=== PATIENT | male | born 1935 | race Caucasian/White ===

== ENCOUNTER 2018-03-06 18:45 | Inpatient (IN) | payer OTHER, MEDICARE ==
[2018-03-06] VITALS (7 sets, daily range): PULSE 73–100; O2SAT 94–100
[~2018-03-06] VITALS: Ht 188 cm; Wt 74.6 kg
[2018-03-06] MEDS ORDERED: MORPHINE SULFATE 4 MG/ML INJ ONE (18:50)
[2018-03-06] MEDS ORDERED: DIPHTH/TETANUS/ACEL PERTUSSIS (BOOSTER) 0.5 ML VIAL/PFS IM ONE (18:56)
[2018-03-06 19:09] LABS: AUTOMATED NEUTROPHIL # 4.4 TH/MM3 (1.8-7.7); BASOPHIL # 0.2 TH/MM3 (0-0.2); BASOPHIL % 3.1 % (0.0-2.0); EOSINOPHIL # 0.3 TH/MM3 (0-0.4); EOSINOPHIL % 3.3 % (0.0-4.0); HEMOGLOBIN 13.9 GM/DL (13.0-17.0); LYMPH % 28.8 % (9.0-44.0); LYMPHOCYTE # 2.2 TH/MM3 (1.0-4.8); MEAN CELL VOLUME 88.1 FL (80.0-100.0); MEAN CORPUSCULAR HEMOGLOBIN 29.2 PG (27.0-34.0); MEAN CORPUSCULAR HGB CONC 33.1 % (32.0-36.0); MEAN PLATELET VOLUME 8.5 FL (7.0-11.0); MONO % 6.9 % (0.0-8.0); MONOCYTE # 0.5 TH/MM3 (0-0.9); NEUT % 57.9 % (16.0-70.0); PLATELET COUNT 247 TH/MM3 (150-450); RED BLOOD COUNT 4.77 MIL/MM3 (4.50-5.90); RED CELL DISTRIBUTION WIDTH 14.1 % (11.6-17.2); WHITE BLOOD COUNT 7.6 TH/MM3 (4.0-11.0)
[2018-03-06 19:20] LABS: INTERNATIONAL NORMALIZED RATIO 1.1 RATIO; PROTHROMBIN TIME - PATIENT 11.2 SEC (9.8-11.6)
[2018-03-06] MEDS ORDERED: IOHEXOL 350 MG/ML 10 ML VIAL (for RAD DIAG) IVCONTRAST ONE (19:25)
--- NOTE | 2018-03-06 19:27 | PD ---
HPI Chief Complaint: Trauma (Alert) Time Seen by Provider: 19:03 Travel History International Travel<30 days: No Contact w/Intl Traveler<30days: No History of Present Illness HPI Patient is a male in his 80s who comes in as a trauma alert. Per EMS, he was walking his dog down and landed on his face. EMS states bystanders report no loss of consciousness. However, on scene patient was very confused. Initially he was not speaking, however he started to speak in route to the hospital. He was given 2 mg of morphine prior to arrival. Patient provides very little history. He says his right leg hurts. Per family, patient is on a blood thinner. Allergies-Medications (Allergen,Severity, Reaction): Coded Allergies: No Allergy Information Available (Unverified , 03/06/18) Review of Systems ROS Limitations: Clinical Condition Physical Exam Narrative GENERAL: Patient is awake, yelling that his leg hurts. SKIN: Abrasion to the right forehead. Abrasions to the right hand. HEAD: Ecchymosis and swelling to the right eye. EYES: Right pupil is 5 mm and reactive, left pupil is 3 mm and reactive. Extraocular movements intact. ENT: Mucous membranes pink and moist. NECK: Trachea midline. No JVD. CARDIOVASCULAR: Regular rate and rhythm. No murmur appreciated. RESPIRATORY: No accessory muscle use. Clear to auscultation. Breath sounds equal bilaterally. GASTROINTESTINAL: Abdomen soft, non-tender, nondistended. MUSCULOSKELETAL: No obvious deformities. No clubbing. No cyanosis. No edema. Pain with movement of the right leg. Patient does not localize the pain. Pedal pulses intact. NEUROLOGICAL: Patient awakens to verbal stimuli. He only says his leg hurts. He is confused. Data Data Last Documented VS Vital Signs Date Time Temp Pulse Resp B/P (MAP) Pulse Ox O2 Delivery O2 Flow Rate FiO2 03/06/18 18:46 94 6.00 Orders Orders I-Stat Profile (03/06/18 18:46) I-Stat Creatinine (03/06/18 18:46) Complete Blood Count With Diff (03/06/18 18:46) Prothrombin Time / Inr (Pt) (03/06/18 18:46) Act Partial Throm Time (Ptt) (03/06/18 18:46) Type And Screen (03/06/18 18:46) Chest, Single Ap (03/06/18 18:46) Pelvis, Ap Only (Routine) (03/06/18 18:46) Iv Access Insert/Monitor (03/06/18 18:46) Ecg Monitoring (03/06/18 18:46) Oximetry (03/06/18 18:46) Oxygen Administration (03/06/18 18:46) Ed Poc Ultrasound (03/06/18 18:46) Ct Brain W/O Iv Contrast(Rout) (03/06/18 18:46) Ct Cerv Spine W/O Contrast (03/06/18 18:46) Ct Facial Bones W/O Iv Cont (03/06/18 18:46) Ankle, Limited (Ap&Lat) (03/06/18 18:46) Morphine Inj (Morphine Inj) (03/06/18 18:50) Nxrk-Cqv-Jjamwz (Booster) Inj (Boostrix (03/06/18 18:56) Ct Abd/Pel W Iv Contrast(Rout) (03/06/18 18:58) Ct Thorax/ Chest W Iv Contrast (03/06/18 18:58) Consult Marga Gts (03/06/18 ) Admit Order (Ed Use Only) (03/06/18 ) Iohexol 350 Inj (Omnipaque 350 Inj) (03/06/18 19:25) Labs Laboratory Tests Test 03/06/18 18:51 White Blood Count 7.6 TH/MM3 Red Blood Count 4.77 MIL/MM3 Hemoglobin 13.9 GM/DL Bedside Hemoglobin 13.9 G/DL Hematocrit 42.0 % Bedside Hematocrit 41.0 % Mean Corpuscular Volume 88.1 FL Mean Corpuscular Hemoglobin 29.2 PG Mean Corpuscular Hemoglobin Concent 33.1 % Red Cell Distribution Width 14.1 % Platelet Count 247 TH/MM3 Mean Platelet Volume 8.5 FL Neutrophils (%) (Auto) 57.9 % Lymphocytes (%) (Auto) 28.8 % Monocytes (%) (Auto) 6.9 % Eosinophils (%) (Auto) 3.3 % Basophils (%) (Auto) 3.1 % Neutrophils # (Auto) 4.4 TH/MM3 Lymphocytes # (Auto) 2.2 TH/MM3 Monocytes # (Auto) 0.5 TH/MM3 Eosinophils # (Auto) 0.3 TH/MM3 Basophils # (Auto) 0.2 TH/MM3 CBC Comment DIFF FINAL Differential Comment Prothrombin Time 11.2 SEC Prothromb Time International Ratio 1.1 RATIO Activated Partial Thromboplast Time 25.2 SEC Bedside Sodium 144 MMOL/L Bedside Potassium 4.4 MMOL/L Bedside Chloride 112 MMOL/L Bedside Blood Urea Nitrogen 23 MG/DL Bedside Creatinine 1.4 MG/DL Bedside Glucose 92 MG/DL [facility] Medical Screen Exam Complete: Yes Emergency Medical Condition: Yes Differential Diagnosis Intracranial bleed versus hip fracture versus ankle fracture versus skull fracture Narrative Course Patient is a male in his 80s brought in as a trauma alert after a fall while walking his dog. He complains of right leg pain. He is confused, but awake on arrival. IV established, labs sent. Chest x-ray and pelvis performed. Patient taken to CAT scan where he was found to have an intracranial bleed. Scans also concerning for a right hip fracture. Orthopedics and neurosurgery consulted. Per , patient is only on aspirin. Last [address] 03/06/181857 Signed Impressions: CONCLUSION: 1. Negative for acute traumatic injury within the thorax. Moderate to severe e mphysema with dependent atelectasis in the lungs. No pneumothorax or effusions. Abdomen/Pelvis CT 03/06/181857 Signed Impressions: CONCLUSION: 1. Right femoral neck fracture is slightly angulated and comminuted. 2. Negative for acute traumatic injury within the abdomen and pelvis. Hepatic and right renal cyst. Pelvis X-Ray 03/06/181845 Signed Impressions: CONCLUSION: Right femoral neck fracture with angular deformity. Maxillofacial CT 03/06/181845 Signed Impressions: CONCLUSION: 1. Bilateral relatively nondisplaced maxillary sinus fractures with fluid and hemorrhage in the maxillary sinuses and a small amount of air outside the left maxillary sinus laterally. Head CT 03/06/181845 Signed Impressions: CONCLUSION: 1. Subarachnoid hemorrhage bilaterally but especially around the posterior bra instem. Probable trace subdural hemorrhage in the interhemispheric region and t here is also a small amount of intraventricular hemorrhage. Currently no mass e ffect or shift or hydrocephalus. Chest X-Ray 03/06/181845 Impressions: CONCLUSION: Limited exam but no pneumothorax or effusion identified. No mediastinal widenin g. Probable dependent atelectasis in the lungs. Cervical Spine CT 03/06/181845 Signed Impressions: CONCLUSION: 1. Widening of the anterior disc interspace at C3-4 with minimal anterolisthes is. It is unclear if this is an acute or chronic finding. This would be better evaluated with MRI of cervical spine when patient is able. Ankle X-Ray 03/06/181845 Impressions: CONCLUSION: Questionable avulsion fracture anterior to the talus. Patient was confused. Intubation for airway protection. Patient admitted to the ICU. Procedures Procedure Narrative After the risks and benefits were discussed the following procedure was performed: INTUBATION: The patient was put in optimal position for the procedure. Rapid sequence intubation was initiated by me using 20 milligrams of etomidate IV and 50 milligrams of rocuronium IV. The patient was intubated with a 8.0 cuffed endotracheal tube. Tube placement was confirmed by visualization of the tube and balloon passing through the cords, capnometry and subsequent chest x-ray. Breath sounds were equal and well aerated bilaterally postintubation. No breath sounds over stomach. Patient tolerated procedure well. Trauma Alert - Level One Trauma Alert Level One: Full trauma team activate, Patient evaluated, Trauma surgeon summoned Diagnosis Diagnosis: Primary Impression: Trauma Additional Impressions: Intracranial bleed Hip fracture Qualified Codes: S72.001A - Fracture of unspecified part of neck of right femur, initial encounter for closed fracture Admitting Physician Requests: Admit Symone Moeller MD March 06, 2018 19:27
--- NOTE | 2018-03-06 19:29 | RADRPT ---
EXAM DATE: 03/06/2018 7:16 PM EDT AGE/SEX: 89 years / Male INDICATIONS: Trauma alert, fall CLINICAL DATA: This is the patient's initial encounter. Patient reports that signs and symptoms have been present for 1 day and indicates a pain score of Nonresponsive. MEDICAL/SURGICAL HISTORY: Non-responsive. Non-responsive. RADIATION DOSE: 56.35 CTDI (mGy) COMPARISON: No prior [facility] exams available for comparison. TECHNIQUE: CT of the head without contrast. Using automated exposure control and adjustment of the mA and/or kV according to patient size, radiation dose was kept as low as reasonably achievable to ob tain optimal diagnostic quality images. FINDINGS: There is extensive subarachnoid hemorrhage present, especially around the brainstem. Subarachnoid hem orrhage also extends cephalad over both convexities and there is probably also is trace subdural hemo rrhage in the interhemispheric fissure. There is also small amount of intraventricular hemorrhage mor e so on the left side. Currently no significant mass effect or shift. No hydrocephalus. No calvarial fracture is identified. CONCLUSION: 1. Subarachnoid hemorrhage bilaterally but especially around the posterior brainstem. Probable trace subdural hemorrhage in the interhemispheric region and there is also a small amount of intraventricu lar hemorrhage. Currently no mass effect or shift or hydrocephalus. Electronically signed by: oLgan Marquez MD 03/06/2018 7:28 PM EDT
[2018-03-06] MEDS ORDERED: ETOMIDATE 20 MG/10 ML VIAL ONE (19:31)
--- NOTE | 2018-03-06 19:31 | RADRPT ---
EXAM DATE: 03/06/2018 7:26 PM EDT AGE/SEX: 89 years / Male INDICATIONS: Trauma alert, fall CLINICAL DATA: This is the patient's initial encounter. Patient reports that signs and symptoms have been present for 1 day and indicates a pain score of Nonresponsive. MEDICAL/SURGICAL HISTORY: Non-responsive. Non-responsive. RADIATION DOSE: 5.27 CTDI (mGy) ; Combined studies COMPARISON: No prior [facility] exams available for comparison. TECHNIQUE: Multiple contiguous axial images were obtained through the chest during bolus infusion of 74 ml Omnipaque 350 (iohexol) nonionic water-soluble contrast as a cumulative dose for multiple exa ms. Images were obtained in suspended respiration using multiple row detector helical technique. U sing automated exposure control and adjustment of the mA and/or kV according to patient size, radiati on dose was kept as low as reasonably achievable to obtain optimal diagnostic quality images. FINDINGS: There is moderate to severe emphysema. Dependent atelectasis in the lungs. No pneumothorax. No pleura l or pericardial effusion. No mediastinal hematoma or evidence for traumatic aortic injury. No acute bony abnormalities are identified. No adenopathy. No acute findings in the upper abdomen. See abdomen CT. CONCLUSION: 1. Negative for acute traumatic injury within the thorax. Moderate to severe emphysema with dependen t atelectasis in the lungs. No pneumothorax or effusions. Electronically signed by: Logan Marquez MD 03/06/2018 7:30 PM EDT
--- NOTE | 2018-03-06 19:35 | RADRPT ---
EXAM DATE: 03/06/2018 7:26 PM EDT AGE/SEX: 89 years / Male INDICATIONS: Trauma alert, fall CLINICAL DATA: This is the patient's initial encounter. Patient reports that signs and symptoms have been present for 1 day and indicates a pain score of Nonresponsive. MEDICAL/SURGICAL HISTORY: Non-responsive. Non-responsive. ORAL CONTRAST: No oral contrast ingested. RADIATION DOSE: 5.27 CTDI (mGy) ; Combined studies COMPARISON: No prior [facility] exams available for comparison. TECHNIQUE: Multiple contiguous axial images were obtained through the abdomen and pelvis following b olus infusion of 74 ml Omnipaque 350 (iohexol) nonionic water-soluble contrast as a cumulative dose for multiple exams. No oral contrast ingested. Using automated exposure control and adjustment of t he mA and/or kV according to patient size, the radiation dose was kept as low as reasonably achievabl e to obtain optimal diagnostic quality images. FINDINGS: There is dependent atelectasis in the lungs. 1.5 cm hepatic cysts present. Spleen, adrenals and pancr eas unremarkable. There is a 6.1 cm right renal cyst. Left kidney unremarkable. No free fluid. No bowel obstruction. There is a subcapital slightly comminuted right femoral neck fracture with some angular deformity. No dislocation. CONCLUSION: 1. Right femoral neck fracture is slightly angulated and comminuted. 2. Negative for acute traumatic injury within the abdomen and pelvis. Hepatic and right renal cyst. Electronically signed by: Logan Marquez MD 03/06/2018 7:34 PM EDT
--- NOTE | 2018-03-06 19:41 | RADRPT ---
EXAM DATE: 03/06/2018 7:19 PM EDT AGE/SEX: 89 years / Male INDICATIONS: Trauma alert, fall CLINICAL DATA: This is the patient's initial encounter. Patient reports that signs and symptoms have been present for 1 day and indicates a pain score of Nonresponsive. MEDICAL/SURGICAL HISTORY: Non-responsive. Non-responsive. RADIATION DOSE: 19.25 CTDI (mGy) COMPARISON: No prior [facility] exams available for comparison. TECHNIQUE: Contiguous axial images were obtained using helical multirow detector technique. The vol umetric data was post-processed with multiplanar reconstruction in oblique axial, sagittal, and coron al planes. Using automated exposure control and adjustment of the mA and/or kV according to patient s ize, radiation dose was kept as low as reasonably achievable to obtain optimal diagnostic quality fazal ges. FINDINGS: There is widening of the anterior disc interspace at C3-4 which could be related to a disc injury or annular tear. This would be better evaluated with MRI. There is also a minimal anterolisthesis of C3 on C4. There is no significant prevertebral swelling. 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 There is moderat e to advanced facet arthropathy. CONCLUSION: 1. Widening of the anterior disc interspace at C3-4 with minimal anterolisthesis. It is unclear if t his is an acute or chronic finding. This would be better evaluated with MRI of cervical spine when joseph richards is able. Electronically signed by: Logan Marquez MD 03/06/2018 7:40 PM EDT
[2018-03-06] MEDS ORDERED: PROPOFOL 1000 MG/100 ML INJ 100 ML ONE (19:42)
--- NOTE | 2018-03-06 19:44 | RADRPT ---
EXAM DATE: 03/06/2018 7:21 PM EDT AGE/SEX: 89 years / Male INDICATIONS: Trauma alert, fall CLINICAL DATA: This is the patient's initial encounter. Patient reports that signs and symptoms have been present for 1 day and indicates a pain score of Nonresponsive. MEDICAL/SURGICAL HISTORY: Non-responsive. Non-responsive. RADIATION DOSE: 21.96 CTDI (mGy) COMPARISON: No prior [facility] exams available for comparison. TECHNIQUE: Contiguous images in the axial and coronal planes were obtained using helical multirow de tector technique. Using automated exposure control and adjustment of the mA and/or kV according to p atient size, radiation dose was kept as low as reasonably achievable to obtain optimal diagnostic roni lity images. FINDINGS: There are bilateral relatively nondisplaced maxillary sinus fracture with some air outside the left m axillary sinus. Globes are intact. There is fluid and hemorrhage within the paranasal sinuses especia lly the ethmoids and maxillary sinuses. No other acute fractures are identified. Mastoids are clear. CONCLUSION: 1. Bilateral relatively nondisplaced maxillary sinus fractures with fluid and hemorrhage in the maxi llary sinuses and a small amount of air outside the left maxillary sinus laterally. Electronically signed by: Logan Marquez MD 03/06/2018 7:42 PM EDT
[2018-03-06] MEDS ORDERED: NURSING INFORMATION XX SCH (19:45)
[2018-03-06] MEDS ORDERED: SODIUM CHLORIDE 0.9% FLUSH 10 ML FLUSH IV FLUSH PRN (19:45)
[2018-03-06] MEDS ORDERED: ENALAPRILAT 1.25 MG/ML VIAL IV PUSH PRN (19:45)
[2018-03-06] MEDS ORDERED: CHLORHEXIDINE GLUCONATE 2 % 1 PACK (2 CLOTHS) TOP PRN (19:45)
--- NOTE | 2018-03-06 19:55 | RADRPT ---
EXAM DATE: 03/06/2018 7:08 PM EDT AGE/SEX: 89 years / Male INDICATIONS: Trauma alert. Post fall. CLINICAL DATA: This is the patient's initial encounter. Patient reports that signs and symptoms have been present for 1 day and indicates a pain score of Nonresponsive. MEDICAL/SURGICAL HISTORY: Non-responsive. Non-responsive. COMPARISON: No prior [facility] exams available for comparison. FINDINGS: A single AP view of the chest demonstrates the lungs to be symmetrically aerated without evidence of mass, infiltrate or effusion. The cardiomediastinal contours are unremarkable. Osseous structures a re intact. CONCLUSION: Limited exam but no pneumothorax or effusion identified. No mediastinal widening. Probable dependent atelectasis in the lungs. Electronically signed by: Logan Marquez MD 03/06/2018 7:54 PM EDT
--- NOTE | 2018-03-06 19:55 | RADRPT ---
EXAM DATE: 03/06/2018 7:11 PM EDT AGE/SEX: 89 years / Male INDICATIONS: Trauma alert. Post fall. CLINICAL DATA: This is the patient's initial encounter. Patient reports that signs and symptoms have been present for 1 day and indicates a pain score of Nonresponsive. MEDICAL/SURGICAL HISTORY: Non-responsive. Non-responsive. COMPARISON: No prior [facility] exams available for comparison. FINDINGS: There is a subcapital fracture right femoral neck with angular deformity. No other pelvic fractures i dentified on limited plain film examination. CONCLUSION: Right femoral neck fracture with angular deformity. Electronically signed by: Logan Marquez MD 03/06/2018 7:53 PM EDT
--- NOTE | 2018-03-06 19:56 | RADRPT ---
EXAM DATE: 03/06/2018 7:13 PM EDT AGE/SEX: 89 years / Male INDICATIONS: Trauma alert. Right ankle pain post fall today. CLINICAL DATA: This is the patient's initial encounter. Patient reports that signs and symptoms have been present for 1 day and indicates a pain score of Nonresponsive. MEDICAL/SURGICAL HISTORY: . Unobtainable. . Unobtainable. COMPARISON: No prior [facility] exams available for comparison. FINDINGS: There is a questionable avulsion fracture anterior to the talus. Ankle mortise appears grossly intact without dislocation. Pes planus noted. CONCLUSION: Questionable avulsion fracture anterior to the talus. Electronically signed by: Logan Marquez MD 03/06/2018 7:55 PM EDT
[2018-03-06] MEDS: PROPOFOL 1000 MG/100 ML INJ 100 ML IV PRN (20:00)
[2018-03-06] MEDS ORDERED: ETOMIDATE 20 MG/10 ML VIAL IV PUSH ONE (20:00)
[2018-03-06] MEDS ORDERED: ROCURONIUM INJ 50 MG/5 ML VIAL IV ONE (20:00)
--- NOTE | 2018-03-06 20:05 | RADRPT ---
EXAM DATE: 03/06/2018 7:59 PM EDT AGE/SEX: 89 years / Male INDICATIONS: Chest tube placement. CLINICAL DATA: This is the patient's initial encounter. Patient reports that signs and symptoms have been present for 1 day and indicates a pain score of Nonresponsive. MEDICAL/SURGICAL HISTORY: Non-responsive. Non-responsive. [place] [facility] [place]. . FINDINGS: Endotracheal tube is in good position. Cardiomediastinal silhouette within normal limits. Dependent a telectasis in the lungs. No acute bony abnormality identified. CONCLUSION: Endotracheal tube in good position. Electronically signed by: Logan Marquez MD 03/06/2018 8:03 PM EDT
--- NOTE | 2018-03-06 20:22 | PD.CONS ---
History of Present Illness Service Neurosurgery Consult Requested By Trauma surgery Reason for Consult Traumatic brain injury Primary Care Physician Unknown Diagnoses: History of Present Illness Elderly gentleman who appears to be in his 80s brought in as a trauma alert to [facility] after a fall while walking his dog with questionable loss of consciousness. Patient was confused but responding on arrival although lethargic. He was intubated and further trauma workup included CT scan of the head which reveals traumatic subarachnoid hemorrhage overlying the convexities as well as frontoparietal interhemispheric small subdural hemorrhage and subarachnoid hemorrhage in the ambient cisterns bilaterally. There is also small left intraventricular hemorrhage but no hydrocephalus. There is generalized cerebral atrophy and no mass-effect or midline shift. CT of cervical spine shows widening of the C3-4 interspace with the advanced C4-5 degenerative disc disease and possible autofusion along with extensive degenerative changes. He also has a right femoral fracture. Currently is intubated and sedated and no family member is at the bedside or any previous medical history known. Review of Systems ROS Limitations: Intubated, Unresponsive Past Family Social History Allergies: Coded Allergies: No Allergy Information Available (Unverified , 03/06/18) Past Medical History Unknown Past Surgical History Unknown Reported Medications Unknown Family History Unknown Social History Unknown Physical Exam Vital Signs Vital Signs Date Time Temp Pulse Resp B/P (MAP) Pulse Ox O2 Delivery O2 Flow Rate FiO2 03/06/18 19:40 100 100 03/06/18 18:46 94 6.00 Physical Exam GENERAL: This is elderly gentleman who is intubated and sedated. SKIN: Right frontal scalp abrasion and right hand and finger abrasions. HEAD: Right frontal scalp abrasion and swelling with periorbital ecchymosis EYES: Pupils equal round and reactive. Extraocular motions intact. No scleral icterus. No injection or drainage. ENT: Nose without bleeding, purulent drainage or septal hematoma. Throat without erythema, tonsillar hypertrophy or exudate. Uvula midline. Airway patent. NECK: Trachea midline. No JVD or lymphadenopathy. Supple, nontender, no meningeal signs. CARDIOVASCULAR: Regular rate and rhythm without murmurs, gallops, or rubs. RESPIRATORY: Clear to auscultation. Breath sounds equal bilaterally. No wheezes , rales, or rhonchi. GASTROINTESTINAL: Abdomen soft, non-tender, nondistended. No hepato-splenomegaly , or palpable masses. No guarding. MUSCULOSKELETAL: Right hand abrasions; chronic poor circulation changes in distal lower extremities.. NEUROLOGICAL: Currently he is intubated and sedated and received muscle paralyzation for the intubation and is not responding. Pupils are about 3 mm and sluggish bilaterally. His [place] Coma Score prior to intubation appears to be around 13. Laboratory Laboratory Tests Test 03/06/18 18:51 White Blood Count 7.6 Red Blood Count 4.77 Hemoglobin 13.9 Bedside Hemoglobin 13.9 Hematocrit 42.0 Bedside Hematocrit 41.0 Mean Corpuscular Volume 88.1 Mean Corpuscular Hemoglobin 29.2 Mean Corpuscular Hemoglobin Concent 33.1 Red Cell Distribution Width 14.1 Platelet Count 247 Mean Platelet Volume 8.5 Neutrophils (%) (Auto) 57.9 Lymphocytes (%) (Auto) 28.8 Monocytes (%) (Auto) 6.9 Eosinophils (%) (Auto) 3.3 Basophils (%) (Auto) 3.1 Neutrophils # (Auto) 4.4 Lymphocytes # (Auto) 2.2 Monocytes # (Auto) 0.5 Eosinophils # (Auto) 0.3 Basophils # (Auto) 0.2 CBC Comment DIFF FINAL Differential Comment Prothrombin Time 11.2 Prothromb Time International Ratio 1.1 Activated Partial Thromboplast Time 25.2 Bedside Sodium 144 Bedside Potassium 4.4 Bedside Chloride 112 Bedside Blood Urea Nitrogen 23 Bedside Creatinine 1.4 Bedside Glucose 92 Result Diagram: 03/06/181850 Imaging Last Impressions Chest CT 03/06/181857 Signed Impressions: CONCLUSION: 1. Negative for acute traumatic injury within the thorax. Moderate to severe e mphysema with dependent atelectasis in the lungs. No pneumothorax or effusions. Abdomen/Pelvis CT 03/06/181857 Signed Impressions: CONCLUSION: 1. Right femoral neck fracture is slightly angulated and comminuted. 2. Negative for acute traumatic injury within the abdomen and pelvis. Hepatic and right renal cyst. Pelvis X-Ray 03/06/181845 Signed Impressions: CONCLUSION: Right femoral neck fracture with angular deformity. Maxillofacial CT 03/06/181845 Signed Impressions: CONCLUSION: 1. Bilateral relatively nondisplaced maxillary sinus fractures with fluid and hemorrhage in the maxillary sinuses and a small amount of air outside the left maxillary sinus laterally. Head CT 03/06/181845 Signed Impressions: CONCLUSION: 1. Subarachnoid hemorrhage bilaterally but especially around the posterior bra instem. Probable trace subdural hemorrhage in the interhemispheric region and t here is also a small amount of intraventricular hemorrhage. Currently no mass e ffect or shift or hydrocephalus. Chest X-Ray 03/06/181845 Signed Impressions: CONCLUSION: Limited exam but no pneumothorax or effusion identified. No mediastinal widenin g. Probable dependent atelectasis in the lungs. Cervical Spine CT 03/06/181845 Signed Impressions: CONCLUSION: 1. Widening of the anterior disc interspace at C3-4 with minimal anterolisthes is. It is unclear if this is an acute or chronic finding. This would be better evaluated with MRI of cervical spine when patient is able. Ankle X-Ray 03/06/181845 Signed Impressions: CONCLUSION: Questionable avulsion fracture anterior to the talus. Assessment and Plan Assessment and Plan Elderly gentleman with traumatic brain injury after a fall with extensive traumatic subarachnoid hemorrhage involving bilateral convexities and frontoparietal area as well as interhemispheric subdural hemorrhage and subarachnid hemorrhage in the basal cisterns posteriorly as well as a small left intraventricular hemorrhage in the lateral ventricle but no hydrocephalus, mass-effect or midline shift with generalized atrophy. He has C3-4 interspace widening with the possibility of ligamentous disruption/injury. He will be monitored closely in the surgical intensive care unit. Had a bed elevated at 30 . Cervical collar for possible C3-4 ligamentous/soft tissue injury. Follow- up CT scan of the head tomorrow morning to rule out any progression of these areas of hemorrhages along with a cerebral CT angiogram to rule out any underlying aneurysm. Early seizure prophylaxis with Keppra, mechanical DVT prophylaxis and gastrointestinal stress ulcer prophylaxis. His condition is critical with a guarded prognosis. Mannie Lowery MD March 06, 2018 20:22
[2018-03-06] MEDS ORDERED: LORazepam 2 MG/ML VIAL IV PUSH PRN (20:30)
[2018-03-06] MEDS ORDERED: MAGNESIUM HYDROXIDE SUSP 30 ML CUP PO PRN (20:30)
[2018-03-06] MEDS ORDERED: ONDANSETRON ODT 4 MG TAB PO PRN (20:30)
[2018-03-06] MEDS ORDERED: LACTULOSE SYRUP 20 GM/30 ML CUP PO PRN (20:30)
[2018-03-06] MEDS ORDERED: SENNOSIDES 8.6 MG TAB PO PRN (20:30)
[2018-03-06] MEDS ORDERED: BISACODYL 10 MG SUPP RECTAL PRN (20:30)
[2018-03-06] MEDS: BACITRACIN TOP OINT 15 GM TUBE TOP SCH (21:00)
[2018-03-06] MEDS: DOCUSATE SODIUM 100 MG CAP PO SCH (21:00)
[2018-03-06] MEDS: DOCUSATE SODIUM 50 MG/SENNA 8.6 MG TAB PO SCH (21:00)
[2018-03-06] MEDS: levETIRAcetam INJ 500 MG in SODIUM CHLORIDE 0.9% INJ 100 ML IV SCH (21:07)
[2018-03-06] MEDS ORDERED: ALBU6.7H INH (21:38)
[2018-03-06] MEDS ORDERED: ASPI81CH7 CHEW (21:48)
[2018-03-06] MEDS ORDERED: PANT40TA3 PO (21:48)
[2018-03-06] MEDS ORDERED: ENAL20TA PO (21:48)
[2018-03-06] MEDS ORDERED: VIAG100T PO (21:48)
[2018-03-06] MEDS ORDERED: TAMS0.4C4 PO (21:48)
[2018-03-06] MEDS ORDERED: AMLO10TA2 PO (21:48)
[2018-03-06] MEDS ORDERED: SIMV20TA PO (21:48)
--- NOTE | 2018-03-06 23:00 | HHI.CCPN ---
Subjective Brief History Elderly gentleman who was walking his dog fell under unknown circumstances on a flat surface sustained injuries to the head and right leg. It is unclear whether patient lost consciousness however he was very confused on the scene. Transferred to our institution as priority 1 trauma alert and on arrival due to level of consciousness patient was intubated and ventilated. Patient was resuscitated according to trauma principles and full workup was completed Injuries diagnosed on initial workup Intracranial subarachnoid and subdural bilateral hemorrhage with some intraventricular hemorrhage and frontal contusions Facial bruising / laceration and bilateral maxillary sinus fractures Right femoral neck fracture Right talus fracture Patient was placed in the ICU and appropriate services were consulted It should be noted that patient has prior history of falls very recently twice at which time he might have had some tremors rising suspicion about small vessel disease and possible TIAs versus strokes Patient was on multiple medications but currently not removed due to their physiological effects in current condition Objective Vital Signs Date Time Temp Pulse Resp B/P (MAP) Pulse Ox O2 Delivery O2 Flow Rate FiO2 03/06/18 21:12 100 50 03/06/18 18:46 6.00 Result Diagram: 03/06/181850 Other Results Laboratory Tests Test 03/06/18 20:48 Blood Gas Puncture Site LT BRACHIAL Blood Gas Patient Temperature 98.6 Blood Gas HCO3 21 mmol/L (22-26) Blood Gas Base Excess -5.0 mmol/L (-2-2) Blood Gas Oxygen Saturation 94 % (90-100) Arterial Blood pH 7.28 (7.380-7.420) Arterial Blood Partial Pressure CO2 46 mmHg (38-42) Arterial Blood Partial Pressure O2 95 mmHg (61-120) Arterial Blood Oxygen Content 18.2 Vol % (12.0-20.0) Arterial Blood Carboxyhemoglobin 1.2 % (0-4) Arterial Blood Methemoglobin 1.0 % (0-2) Blood Gas Hemoglobin 13.8 G/DL (12.0-16.0) Oxygen Delivery Device VENTILATOR Blood Gas Ventilator Setting AC/16/500/PEEP 5 Blood Gas Inspired Oxygen 50 % Imaging Last [address] 03/06/181857 Signed Impressions: CONCLUSION: 1. Negative for acute traumatic injury within the thorax. Moderate to severe e mphysema with dependent atelectasis in the lungs. No pneumothorax or effusions. Abdomen/Pelvis CT 03/06/181857 Signed Impressions: CONCLUSION: 1. Right femoral neck fracture is slightly angulated and comminuted. 2. Negative for acute traumatic injury within the abdomen and pelvis. Hepatic and right renal cyst. Pelvis X-Ray 03/06/181845 Signed Impressions: CONCLUSION: Right femoral neck fracture with angular deformity. Maxillofacial CT 03/06/181845 Signed Impressions: CONCLUSION: 1. Bilateral relatively nondisplaced maxillary sinus fractures with fluid and hemorrhage in the maxillary sinuses and a small amount of air outside the left maxillary sinus laterally. Head CT 03/06/181845 Signed Impressions: CONCLUSION: 1. Subarachnoid hemorrhage bilaterally but especially around the posterior bra instem. Probable trace subdural hemorrhage in the interhemispheric region and t here is also a small amount of intraventricular hemorrhage. Currently no mass e ffect or shift or hydrocephalus. Chest X-Ray 03/06/181845 Signed Impressions: CONCLUSION: Limited exam but no pneumothorax or effusion identified. No mediastinal widenin g. Probable dependent atelectasis in the lungs. Cervical Spine CT 03/06/181845 Signed Impressions: CONCLUSION: 1. Widening of the anterior disc interspace at C3-4 with minimal anterolisthes is. It is unclear if this is an acute or chronic finding. This would be better evaluated with MRI of cervical spine when patient is able. Ankle X-Ray 03/06/181845 Signed Impressions: CONCLUSION: Questionable avulsion fracture anterior to the talus. Chest X-Ray 03/06/18 0000 Signed Impressions: CONCLUSION: Endotracheal tube in good position. Peterson Torres MD March 06, 2018 23:00
[2018-03-07] VITALS (20 sets, daily range): BP systolic 116–147; BP diastolic 40–67; PULSE 82–96; RESP 18–20; TEMP 99.5–101.5; O2SAT 95–100
[2018-03-07] MEDS: CHLORHEXIDINE GLUCONATE 2 % 1 PACK (2 CLOTHS) TOP SCH (03:44)
[2018-03-07 04:59] LABS: AUTOMATED NEUTROPHIL # 7.9 TH/MM3 (1.8-7.7); BASOPHIL # 0.1 TH/MM3 (0-0.2); BASOPHIL % 0.5 % (0.0-2.0); EOSINOPHIL % 0.1 % (0.0-4.0); HEMATOCRIT 38.1 % (39.0-51.0); HEMOGLOBIN 12.7 GM/DL (13.0-17.0); LYMPH % 9.6 % (9.0-44.0); LYMPHOCYTE # 0.9 TH/MM3 (1.0-4.8); MEAN CELL VOLUME 88.9 FL (80.0-100.0); MEAN CORPUSCULAR HEMOGLOBIN 29.6 PG (27.0-34.0); MEAN CORPUSCULAR HGB CONC 33.4 % (32.0-36.0); MEAN PLATELET VOLUME 8.7 FL (7.0-11.0); MONO % 6.7 % (0.0-8.0); MONOCYTE # 0.6 TH/MM3 (0-0.9); NEUT % 83.1 % (16.0-70.0); PLATELET COUNT 203 TH/MM3 (150-450); RED BLOOD COUNT 4.28 MIL/MM3 (4.50-5.90); WHITE BLOOD COUNT 9.5 TH/MM3 (4.0-11.0)
[2018-03-07 05:08] LABS: INTERNATIONAL NORMALIZED RATIO 1.1 RATIO; PROTHROMBIN TIME - PATIENT 11.4 SEC (9.8-11.6)
[2018-03-07 05:18] LABS: BICARBONATE 21.7 MEQ/L (21.0-32.0); CALCIUM 8.1 MG/DL (8.5-10.1); CREATININE 1.15 MG/DL (0.60-1.30); MAGNESIUM 1.9 MG/DL (1.5-2.5)
--- NOTE | 2018-03-07 06:48 | RADRPT ---
EXAM DATE: 03/07/2018 6:45 AM EDT AGE/SEX: 89 years / Male INDICATIONS: Respiratory distress. CLINICAL DATA: This is the patient's subsequent encounter. Patient reports that signs and symptoms h ave been present for 2 days and indicates a pain score of Nonresponsive. MEDICAL/SURGICAL HISTORY: Non-responsive. Non-responsive. COMPARISON: [facility] [place], CHEST SINGLE AP, 03/06/2018. . FINDINGS: There is mild prominence of interstitial markings not significantly changed and focal consolidation i s not seen. COPD has not changed. NG tube is present with tip not seen probably in the stomach. ET tu be has not changed. CONCLUSION: Placement of NG tube, otherwise not significantly changed. Electronically signed by: Horacio Fernandez MD 03/07/2018 6:46 AM EDT
[2018-03-07] MEDS: DOCUSATE SODIUM 100 MG CAP PO SCH ×2 (07:40→20:37)
[2018-03-07] MEDS: levETIRAcetam INJ 500 MG in SODIUM CHLORIDE 0.9% INJ 100 ML IV SCH ×2 (07:40→20:36)
[2018-03-07] MEDS: BACITRACIN TOP OINT 15 GM TUBE TOP SCH ×2 (07:41→20:37)
[2018-03-07] MEDS: DOCUSATE SODIUM 50 MG/SENNA 8.6 MG TAB PO SCH ×2 (07:41→20:37)
[2018-03-07] MEDS: PANTOPRAZOLE SODIUM 40 MG VIAL IVP SCH (07:41)
--- NOTE | 2018-03-07 07:42 | PD.CONS ---
HPI Service Orthopedic Surgeons Consult Requested By Reason for Consult Right femoral neck fracture Primary Care Physician Unknown Admission Diagnosis Trauma, head bleed Diagnoses: Chief Complaint: Polytrauma History of Present Illness Elderly gentleman who appears to be in his 80s brought in as a trauma alert to [place] after a fall while walking his dog with questionable loss of consciousness. Patient was confused but responding on arrival although lethargic. He was intubated and further trauma workup included CT scan of the head which reveals traumatic subarachnoid hemorrhage and frontoparietal interhemispheric small subdural hemorrhage. There is also small left intraventricular hemorrhage but no hydrocephalus. There is generalized cerebral atrophy and no mass-effect or midline shift. CT of cervical spine shows widening of the C3-4 interspace with the advanced C4-5 degenerative disc disease and possible autofusion along with extensive degenerative changes. He also has a right femoral fracture. Currently is intubated and sedated and no family member is at the bedside or any previous medical history known. Review of Systems ROS Limitations: Clinical Condition, Intubated Past Family Social History Past Medical History Unable to obtain Past Surgical History Unable to obtain Reported Medications Unable to obtain Allergies: Coded Allergies: No Allergy Information Available (Unverified , 03/06/18) Active Ordered Medications Current Medications Medications (Trade) Dose Ordered Sig/Brittani Route Start Time Stop Time Status Last Admin (NS Flush) 2 ml UNSCH PRN IV FLUSH 03/06/18 19:45 (Vasotec Inj) 1.25 mg Q8H PRN IV PUSH 03/06/18 19:45 (Zofran Odt) 4 mg Q6H PRN PO 03/06/18 20:30 (Colace) 100 mg BID PO 03/06/18 21:00 03/06/18 21:00 ([facility] Nursing Information) 1 Q361D XX 03/06/18 19:45 03/06/18 19:45 (Chlorhexidine 2% Cloth) 3 pack Taper DAILY@04 TOP 03/07/18 04:00 03/03/19 03:59 03/07/18 03:44 (Chlorhexidine 2% Cloth) 3 pack UNSCH PRN TOP 03/06/18 19:45 Propofol 100 ml @ 0 mls/hr TITRATE PRN IV 03/06/18 20:00 03/06/18 20:00 Levetriacetam 500 mg/Sodium Chloride 105 ml @ 420 mls/hr Q12HR IV 03/06/18 21:00 03/13/18 20:59 03/06/18 21:07 (Ativan Inj) 1 mg Q1H PRN IV PUSH 03/06/18 20:30 (Protonix Inj) 40 mg DAILY IVP 03/07/18 09:00 (Baciguent Oint) 1 applic BID TOP 03/06/18 21:00 03/06/18 21:00 (Katharine-Colace) 1 tab BID PO 03/06/18 21:00 03/06/18 21:00 (Milk Of Magnesia Liq) 30 ml Q12H PRN PO 03/06/18 20:30 (Senokot) 17.2 mg Q12H PRN PO 03/06/18 20:30 (Dulcolax Supp) 10 mg DAILY PRN RECTAL 03/06/18 20:30 (Lactulose Liq) 30 ml DAILY PRN PO 03/06/18 20:30 Fentanyl Citrate 250 ml @ 5 mls/hr TITRATE PRN IV 03/06/18 23:00 Reported Meds & Active Scripts Active Reported Pantoprazole (Pantoprazole Sodium) 40 Mg Tab 40 Mg PO DAILY 30 minutes before breakfest Tamsulosin (Tamsulosin HCl) 0.4 Mg Cap 0.4 Mg PO HS Viagra (Sildenafil Citrate) 100 Mg Tab 100 Mg PO DAILY PRN Aspirin Children's (Aspirin) 81 Mg Chew 81 Mg CHEW DAILY Enalapril (Enalapril Maleate) 20 Mg Tab 20 Mg PO BID Amlodipine (Amlodipine Besylate) 10 Mg Tab 10 Mg PO DAILY Simvastatin 20 Mg Tab 20 Mg PO DAILY Proventil Hfa 6.7 GM Inh (Albuterol Sulfate) 90 Mcg/Act Aer 2 Puff INH Q6H PRN Family History Unable to obtain Social History Unable to obtain Physical Exam Vital Signs Vital Signs Date Time Temp Pulse Resp B/P (MAP) Pulse Ox O2 Delivery O2 Flow Rate FiO2 03/07/18 06:00 95 03/07/18 04:59 100 50 03/07/18 04:00 96 5/29/18 04:00 50 03/07/18 02:00 86 03/07/18 00:00 82 03/07/18 00:00 50 03/06/18 23:23 100 50 03/06/18 22:00 73 03/06/18 21:12 100 50 03/06/18 20:00 50 03/06/18 20:00 100 03/06/18 20:00 100 50 03/06/18 19:40 100 100 03/06/18 18:46 94 6.00 Physical Exam Intubated and sedated. C-collar is in place. Splint to right ankle. Brisk cap refill throughout. There are chronic venous changes to bilateral lower extremities. No gross deformities. Laboratory Laboratory Tests Test 03/06/18 18:51 03/06/18 20:30 03/06/18 20:48 03/07/18 03:30 White Blood Count 7.6 Red Blood Count 4.77 Hemoglobin 13.9 Bedside Hemoglobin 13.9 Hematocrit 42.0 Bedside Hematocrit 41.0 Mean Corpuscular Volume 88.1 Mean Corpuscular Hemoglobin 29.2 Mean Corpuscular Hemoglobin Concent 33.1 Red Cell Distribution Width 14.1 Platelet Count 247 Mean Platelet Volume 8.5 Neutrophils (%) (Auto) 57.9 Lymphocytes (%) (Auto) 28.8 Monocytes (%) (Auto) 6.9 Eosinophils (%) (Auto) 3.3 Basophils (%) (Auto) 3.1 Neutrophils # (Auto) 4.4 Lymphocytes # (Auto) 2.2 Monocytes # (Auto) 0.5 Eosinophils # (Auto) 0.3 Basophils # (Auto) 0.2 CBC Comment DIFF FINAL Differential Comment Prothrombin Time 11.2 Prothromb Time International Ratio 1.1 Activated Partial Thromboplast Time 25.2 Bedside Sodium 144 Bedside Potassium 4.4 Bedside Chloride 112 Bedside Blood Urea Nitrogen 23 Bedside Creatinine 1.4 Bedside Glucose 92 Nasal Screen MRSA (PCR) MRSA NOT DETECTED Blood Gas Puncture Site LT BRACHIAL ART LINE Blood Gas Patient Temperature 98.6 98.6 Blood Gas HCO3 21 19 Blood Gas Base Excess -5.0 -5.4 Blood Gas Oxygen Saturation 94 96 Arterial Blood pH 7.28 7.35 Arterial Blood Partial Pressure CO2 46 36 Arterial Blood Partial Pressure O2 95 121 Arterial Blood Oxygen Content 18.2 17.1 Arterial Blood Carboxyhemoglobin 1.2 1.4 Arterial Blood Methemoglobin 1.0 0.9 Blood Gas Hemoglobin 13.8 12.5 Oxygen Delivery Device VENTILATOR VENTILATOR Blood Gas Ventilator Setting AC/16/500/PEEP 5 AC//550/PEEP 5 Blood Gas Inspired Oxygen 50 50 Test 03/07/18 04:45 White Blood Count 9.5 Red Blood Count 4.28 Hemoglobin 12.7 Hematocrit 38.1 Mean Corpuscular Volume 88.9 Mean Corpuscular Hemoglobin 29.6 Mean Corpuscular Hemoglobin Concent 33.4 Red Cell Distribution Width 14.0 Platelet Count 203 Mean Platelet Volume 8.7 Neutrophils (%) (Auto) 83.1 Lymphocytes (%) (Auto) 9.6 Monocytes (%) (Auto) 6.7 Eosinophils (%) (Auto) 0.1 Basophils (%) (Auto) 0.5 Neutrophils # (Auto) 7.9 Lymphocytes # (Auto) 0.9 Monocytes # (Auto) 0.6 Eosinophils # (Auto) 0.0 Basophils # (Auto) 0.1 CBC Comment DIFF FINAL Differential Comment Prothrombin Time 11.4 Prothromb Time International Ratio 1.1 Blood Urea Nitrogen 19 Creatinine 1.15 Random Glucose 97 Calcium Level 8.1 Magnesium Level 1.9 Sodium Level 145 Potassium Level 4.2 Chloride Level 114 Carbon Dioxide Level 21.7 Anion Gap 9 Estimat Glomerular Filtration Rate 55 Result Diagram: 03/07/1844403/07/18444 Imaging Last 48 hours Impressions Chest X-Ray 03/07/18 0000 Signed Impressions: CONCLUSION: Placement of NG tube, otherwise not significantly changed. Chest CT 03/06/181857 Signed Impressions: CONCLUSION: 1. Negative for acute traumatic injury within the thorax. Moderate to severe e mphysema with dependent atelectasis in the lungs. No pneumothorax or effusions. Abdomen/Pelvis CT 03/06/181857 Signed Impressions: CONCLUSION: 1. Right femoral neck fracture is slightly angulated and comminuted. 2. Negative for acute traumatic injury within the abdomen and pelvis. Hepatic and right renal cyst. Pelvis X-Ray 03/06/181845 Signed Impressions: CONCLUSION: Right femoral neck fracture with angular deformity. Maxillofacial CT 03/06/181845 Signed Impressions: CONCLUSION: 1. Bilateral relatively nondisplaced maxillary sinus fractures with fluid and hemorrhage in the maxillary sinuses and a small amount of air outside the left maxillary sinus laterally. Head CT 03/06/181845 Signed Impressions: CONCLUSION: 1. Subarachnoid hemorrhage bilaterally but especially around the posterior bra instem. Probable trace subdural hemorrhage in the interhemispheric region and t here is also a small amount of intraventricular hemorrhage. Currently no mass e ffect or shift or hydrocephalus. Chest X-Ray 03/06/181845 Signed Impressions: CONCLUSION: Limited exam but no pneumothorax or effusion identified. No mediastinal widenin g. Probable dependent atelectasis in the lungs. Cervical Spine CT 03/06/181845 Signed Impressions: CONCLUSION: 1. Widening of the anterior disc interspace at C3-4 with minimal anterolisthes is. It is unclear if this is an acute or chronic finding. This would be better evaluated with MRI of cervical spine when patient is able. Ankle X-Ray 03/06/181845 Signed Impressions: CONCLUSION: Questionable avulsion fracture anterior to the talus. Chest X-Ray 03/06/18 0000 Signed Impressions: CONCLUSION: Endotracheal tube in good position. Assessment & Plan Assessment and Plan 82-year-old gentleman who presents as polytrauma with head bleed, question of cervical spine injury, right femoral neck fracture and possible small capsular avulsion off anterior talus At this time, patient is currently being treated by neurosurgery for his head bleed and question of cervical spine injury. Patient will likely require a right hip hemiarthroplasty should he recover and stabilize from his head and neck injuries. He would need to be able to be positioned laterally to allow surgery to be performed and therefore likely would not be possible today. We will continue to monitor patient, but may tentatively planned for tomorrow should patient stabilize and improve. From a standpoint of his right ankle, I do not see any clear fracture but there is question of small avulsion off the anterior talus. This likely would be more of an ankle sprain with a capsular injury. Would continue splint currently while patient is intubated and sedated. Patient will need full exam when he is awake and extubated. Ml Baker MD March 07, 2018 07:42
[2018-03-07] MEDS: PROPOFOL 1000 MG/100 ML INJ 100 ML IV PRN ×2 (07:44→14:00)
[2018-03-07] MEDS ORDERED: LIDOCAINE HCL 1% 50 ML VIAL ONE (08:17)
--- NOTE | 2018-03-07 08:24 | MH ---
cc: Selvin Young MD DATE OF ADMISSION: 03/06/2018 AKA: [id number] CHIEF COMPLAINT: Trauma, alert, status post fall, facial trauma, altered level of consciousness. HISTORY OF PRESENT ILLNESS: The patient is an 82-year-old male who comes in status post trauma alert. He was noted to be found down after walking his dog when the dogs reportedly pulled and patient hit his face. The patient has questionable loss of consciousness. He was noted to be very confused at the scene. He was initially not speaking, but did intermittently follow some commands in the trauma bay. He was transferred to the trauma bay with primary and secondary surveys done. The patient noted to have facial trauma. He is also complaining of right extremity pain, especially to the hip with external rotation. He was taken to the CT scanner with findings of subarachnoid hemorrhage, facial fractures and a right femoral neck fracture. Therefore, he also was noted to be somewhat confused and a waxing and waning GCS. He was intubated and taken to the ICU for further management and assessment. The patient was noted to be hemodynamically stable initially on arrival. PAST MEDICAL HISTORY: COPD, CHF, difficult to obtain via family. PAST SURGICAL HISTORY: Knee surgery. SOCIAL HISTORY: Denies ETOH, smoking, or IVDA. Previous history of smoking, quit many years ago. MEDICATIONS: Aspirin. Otherwise, unable to obtain. ALLERGIES: NO KNOWN DRUG ALLERGIES. FAMILY HISTORY: Unable to obtain. REVIEW OF SYSTEMS: Unable to obtain. PHYSICAL EXAMINATION: GENERAL: Intermittently awake and alert. HEENT: Right pupil 5 mm, left pupil 3 mm. Extraocular movements intact. Bruising abrasion to the right eye with swelling. Moist mucous membranes. NECK: In C-collar. LUNGS: Bilateral expansion, clear. HEART: S1, S2. Regular. ABDOMEN: Soft, nontender, nondistended. EXTREMITIES: Right lower extremity is slightly shortened with external rotation, tenderness to movement and palpation, swelling bilateral ankles with skin discoloration. NEUROLOGIC: GCS of 14 intermittently. Able to intermittently follow commands. INTEGUMENT: As above. Bilateral extremities, dry skin with a bilateral rash. BACK: No step-offs, nontender. : Within normal limits. VITAL SIGNS: Blood pressure 146/70, pulse 102, respirations 22, saturation 96 percent on 2 liters, temperature 98.2. LABORATORY AND DIAGNOSTIC DATA: Chest x-ray: Emphysematous changes. CT abdomen and pelvis: Right femoral neck fracture, slightly angulated with comminution, no evidence of free air, large right renal cyst. Chest CT: No pneumothorax, severe emphysema, no effusion. Ankle x-ray: Questionable talus fracture on the right. C-spine: CT C3-4 widening of the anterior disk spaces. CT head: Subarachnoid hemorrhage, trace subdural interhemispheric region, small amount of interventricular hemorrhage. CT maxillofacial: A maxillary sinus fracture, nondisplaced. Pelvic x-ray: Right femoral neck deformity. ASSESSMENT: The patient is an 82-year-old male status post fall. The patient noted to have nondisplaced facial fractures, subarachnoid hemorrhage, right femoral neck fracture, widening of C3-4 anterior C-spine vertebral spaces, congestive heart failure, chronic obstructive pulmonary disease, a possible right ankle fracture. PLAN: After a full clinical, radiologic and laboratory workup of the patient's above named issues, the patient does have subarachnoid and intracranial hemorrhage. At this point, the patient will be n.p.o. Neuro checks, close monitoring, antiseizure prophylaxis. We will consultation for neurosurgery for further evaluation and management, possible repeat CT scan in a.m. For the facial fractures, we will discuss with plastic's or OFMS in the a.m. for the patient's widening C3-4 disk spaces. We will consider obtaining MRI. Again, we will defer to neurosurgery. We will maintain C-collar until cleared by neurosurgery. In regard to femoral neck fracture, the patient is noted to have pulses distally. We will splint and a consultation for orthopedics for further management and evaluation of this. Regarding the patient's CHF and COPD, again, close monitoring in the ICU setting. We will obtain EKG and put the patient on telemetry for this. After further discussion with family, the patient noted to have a recent fall approximately 1 week ago as well without noting for significant traumatic injury. The patient may benefit from a possible syncopal workup and further evaluation depending on the patient's clinical course and progression. MD GEO Mendiola/MIGDALIA , 07:44 AM , 08:24 AM
--- NOTE | 2018-03-07 09:02 | HHI.NSPN ---
(Wes Curry) History Chief Complaint: Intubated and sedated with extensive traumatic SAH. (Wes Curry) Interval History Elderly gentleman who appears to be in his 80s brought in as a trauma alert to [facility] after a fall while walking his dog with questionable loss of consciousness. Patient was confused but responding on arrival although lethargic. He was intubated and further trauma workup included CT scan of the head which reveals traumatic subarachnoid hemorrhage overlying the convexities as well as frontoparietal interhemispheric small subdural hemorrhage and subarachnoid hemorrhage in the ambient cisterns bilaterally. There is also small left intraventricular hemorrhage but no hydrocephalus. There is generalized cerebral atrophy and no mass-effect or midline shift. CT of cervical spine shows widening of the C3-4 interspace with the advanced C4-5 degenerative disc disease and possible autofusion along with extensive degenerative changes. He also has a right femoral fracture. Currently is intubated and sedated and no family member is at the bedside or any previous medical history known. 03/07/18: Pt intubated and sedated on Diprivan. Not opening eyes. Not following commands. Currently fighting vent. (Wes Curry) System Review Comments Not able to obtain given clinical condition. (Wes Curry) Exam Results Vital Signs Date Time Temp Pulse Resp B/P (MAP) Pulse Ox O2 Delivery O2 Flow Rate FiO2 03/07/18 08:00 100.6 88 20 131/46 (74) 100 03/07/18 08:00 50 03/07/18 07:00 Mechanical Ventilator 03/06/18 18:46 6.00 Intake and Output 03/07/18 03/07/18 03/08/18 08:00 16:00 00:00 Intake Total 100.6 ml 105 ml Output Total 825 ml Balance -724.4 ml 105 ml (Wes Curry) Physical Examination General: Pt sedated and intubated on Diprivan. Eyes: Pupils equal and reactive. Sclera anicteric. Resp: CTA bilaterally. Intubated. Volume control. Rate 10. Peep 5. FiO2 50 %. Heart: NSR no murmurs Abd: Soft positive bs Skin: No cyanosis or erythema. Right LE splinted and bandaged. SCD to LLE. Muscle: Moves all 4 extremities spontaneously but not following commands for muscle testing. Cervical collar intact. Neuro: Pt sedated on Diprivan. Not opening eyes or following commands. Pupils 3mm bilaterally slight brisk reaction bilaterally. (Wes Curry) Lab, Micro, Other Results Last Impressions Chest X-Ray 03/07/18 0000 Signed Impressions: CONCLUSION: Placement of NG tube, otherwise not significantly changed. Chest CT 03/06/181857 Signed Impressions: CONCLUSION: 1. Negative for acute traumatic injury within the thorax. Moderate to severe e mphysema with dependent atelectasis in the lungs. No pneumothorax or effusions. Abdomen/Pelvis CT 03/06/181857 Signed Impressions: CONCLUSION: 1. Right femoral neck fracture is slightly angulated and comminuted. 2. Negative for acute traumatic injury within the abdomen and pelvis. Hepatic and right renal cyst. Pelvis X-Ray 03/06/181845 Signed Impressions: CONCLUSION: Right femoral neck fracture with angular deformity. Maxillofacial CT 03/06/181845 Signed Impressions: CONCLUSION: 1. Bilateral relatively nondisplaced maxillary sinus fractures with fluid and hemorrhage in the maxillary sinuses and a small amount of air outside the left maxillary sinus laterally. Head CT 03/06/181845 Signed Impressions: CONCLUSION: 1. Subarachnoid hemorrhage bilaterally but especially around the posterior bra instem. Probable trace subdural hemorrhage in the interhemispheric region and t here is also a small amount of intraventricular hemorrhage. Currently no mass e ffect or shift or hydrocephalus. Cervical Spine CT 03/06/181845 Signed Impressions: CONCLUSION: 1. Widening of the anterior disc interspace at C3-4 with minimal anterolisthes is. It is unclear if this is an acute or chronic finding. This would be better evaluated with MRI of cervical spine when patient is able. Ankle X-Ray 03/06/181845 Signed Impressions: CONCLUSION: Questionable avulsion fracture anterior to the talus. Laboratory Tests Test 03/06/18 18:51 03/06/18 20:30 03/06/18 20:48 03/07/18 03:30 White Blood Count 7.6 TH/MM3 Red Blood Count 4.77 MIL/MM3 Hemoglobin 13.9 GM/DL Bedside Hemoglobin 13.9 G/DL Hematocrit 42.0 % Bedside Hematocrit 41.0 % Mean Corpuscular Volume 88.1 FL Mean Corpuscular Hemoglobin 29.2 PG Mean Corpuscular Hemoglobin Concent 33.1 % Red Cell Distribution Width 14.1 % Platelet Count 247 TH/MM3 Mean Platelet Volume 8.5 FL Neutrophils (%) (Auto) 57.9 % Lymphocytes (%) (Auto) 28.8 % Monocytes (%) (Auto) 6.9 % Eosinophils (%) (Auto) 3.3 % Basophils (%) (Auto) 3.1 % Neutrophils # (Auto) 4.4 TH/MM3 Lymphocytes # (Auto) 2.2 TH/MM3 Monocytes # (Auto) 0.5 TH/MM3 Eosinophils # (Auto) 0.3 TH/MM3 Basophils # (Auto) 0.2 TH/MM3 CBC Comment DIFF FINAL Differential Comment Prothrombin Time 11.2 SEC Prothromb Time International Ratio 1.1 RATIO Activated Partial Thromboplast Time 25.2 SEC Bedside Sodium 144 MMOL/L Bedside Potassium 4.4 MMOL/L Bedside Chloride 112 MMOL/L Bedside Blood Urea Nitrogen 23 MG/DL Bedside Creatinine 1.4 MG/DL Bedside Glucose 92 MG/DL Nasal Screen MRSA (PCR) MRSA NOT DETECTED Blood Gas Puncture Site LT BRACHIAL ART LINE Blood Gas Patient Temperature 98.6 98.6 Blood Gas HCO3 21 mmol/L 19 mmol/L Blood Gas Base Excess -5.0 mmol/L -5.4 mmol/L Blood Gas Oxygen Saturation 94 % 96 % Arterial Blood pH 7.28 7.35 Arterial Blood Partial Pressure CO2 46 mmHg 36 mmHg Arterial Blood Partial Pressure O2 95 mmHg 121 mmHg Arterial Blood Oxygen Content 18.2 Vol % 17.1 Vol % Arterial Blood Carboxyhemoglobin 1.2 % 1.4 % Arterial Blood Methemoglobin 1.0 % 0.9 % Blood Gas Hemoglobin 13.8 G/DL 12.5 G/DL Oxygen Delivery Device VENTILATOR VENTILATOR Blood Gas Ventilator Setting /500/PEEP 5 /550/PEEP 5 Blood Gas Inspired Oxygen 50 % 50 % Test 03/07/18 04:45 White Blood Count 9.5 TH/MM3 Red Blood Count 4.28 MIL/MM3 Hemoglobin 12.7 GM/DL Hematocrit 38.1 % Mean Corpuscular Volume 88.9 FL Mean Corpuscular Hemoglobin 29.6 PG Mean Corpuscular Hemoglobin Concent 33.4 % Red Cell Distribution Width 14.0 % Platelet Count 203 TH/MM3 Mean Platelet Volume 8.7 FL Neutrophils (%) (Auto) 83.1 % Lymphocytes (%) (Auto) 9.6 % Monocytes (%) (Auto) 6.7 % Eosinophils (%) (Auto) 0.1 % Basophils (%) (Auto) 0.5 % Neutrophils # (Auto) 7.9 TH/MM3 Lymphocytes # (Auto) 0.9 TH/MM3 Monocytes # (Auto) 0.6 TH/MM3 Eosinophils # (Auto) 0.0 TH/MM3 Basophils # (Auto) 0.1 TH/MM3 CBC Comment DIFF FINAL Differential Comment Prothrombin Time 11.4 SEC Prothromb Time International Ratio 1.1 RATIO Blood Urea Nitrogen 19 MG/DL Creatinine 1.15 MG/DL Random Glucose 97 MG/DL Calcium Level 8.1 MG/DL Magnesium Level 1.9 MG/DL Sodium Level 145 MEQ/L Potassium Level 4.2 MEQ/L Chloride Level 114 MEQ/L Carbon Dioxide Level 21.7 MEQ/L Anion Gap 9 MEQ/L Estimat Glomerular Filtration Rate 55 ML/MIN 03/07/18 03/07/18 03/08/18 15:00 23:00 07:00 Intake Total 130 ml Balance 130 ml Intake IV Total 130 ml (Wes Curry) Medical Decision Making Impression and Plan A: 82 y/o M with traumatic brain injury after a fall with extensive traumatic subarachnoid hemorrhage involving bilateral convexities and frontoparietal area as well as interhemispheric subdural hemorrhage and subarachnid hemorrhage in the basal cisterns posteriorly as well as a small left intraventricular hemorrhage in the lateral ventricle but no hydrocephalus, mass-effect or midline shift with generalized atrophy. He has C3-4 interspace widening with the possibility of ligamentous disruption/injury. P: Continue to monitor closely in the surgical intensive care unit. Keep HOB elevated at 30. Cervical collar for possible C3-4 ligamentous/soft tissue injury. Pt going for a Follow-up CT scan of the head to rule out any progression of these areas of hemorrhages along with a cerebral CT angiogram to rule out any underlying aneurysm. Continue with seizure prophylaxis with Keppra, Continue with mechanical DVT prophylaxis and gastrointestinal stress ulcer prophylaxis. (Wes Curry) Attending Statement The exam, history, and the medical decision-making described in the above note were completed with the assistance of the mid-level provider. I reviewed and agree with the findings presented. I attest that I had a [id number] encounter with the patient on the same day, and personally performed and documented my assessment and findings in the medical record. Intubated and sedated and gets agitated when sedation is held. Does not open eyes but moves all 4 extremities with equal reactive pupils. Will obtain follow-up CT scan of the brain and CT angiogram along with cervical spine MRI scan. Continue with the cervical collar and close neurologic monitoring. If follow-up CT scan of the head is stable then contemplate weaning his sedation and ventilator as tolerated. (Mannie Lowery MD) Wes Curry March 07, 2018 09:01 Mannie Lowery MD March 07, 2018 12:16
[2018-03-07] MEDS ORDERED: POTASSIUM CHLORIDE 25 MEQ EFFERVESCENT TAB PO PRN ×2 (09:15)
[2018-03-07] MEDS ORDERED: RESP: ALBUTEROL 2.5 MG/IPRATROPIUM 0.5 MG NEB (PRN) NEB (09:15)
[2018-03-07] MEDS ORDERED: MAGNESIUM SULFATE INJ 2 GM in SODIUM CHLORIDE 0.9% INJ 96 ML IV PRN (09:15)
[2018-03-07] MEDS ORDERED: POTASSIUM PHOSPHATE INJ 30 MMOL in SODIUM CHLOR 0.9% 250 ML INJ 250 ML IV PRN (09:15)
[2018-03-07] MEDS ORDERED: POTASSIUM PHOSPHATE MONOBASIC 500 MG TAB PO PRN (09:15)
[2018-03-07] MEDS ORDERED: POTASSIUM PHOSPHATE MONOBASIC 500 MG TAB PO/TUBE PRN (09:15)
[2018-03-07] MEDS ORDERED: POTASSIUM CHLOR 20 MEQ PREMIX 100 ML IV PRN ×2 (09:15)
[2018-03-07] MEDS ORDERED: SODIUM PHOSPHATE INJ 30 MMOL in SODIUM CHLOR 0.9% 250 ML INJ 240 ML IV PRN (09:15)
[2018-03-07] MEDS ORDERED: MAGNESIUM SULFATE INJ 4 GM in SODIUM CHLORIDE 0.9% INJ 92 ML IV PRN (09:15)
[2018-03-07] MEDS ORDERED: MAGNESIUM OXIDE 400 MG TAB PO PRN (09:15)
[2018-03-07] MEDS ORDERED: POTASSIUM CHLOR 40 MEQ PREMIX 100 ML IV PRN ×2 (09:15)
[2018-03-07] MEDS: SODIUM CHLOR 0.9% 1000 ML INJ 1,000 ML IV SCH ×2 (10:15→19:50)
[2018-03-07] MEDS: fentaNYL DRIP 250 ML IV PRN (10:25)
[2018-03-07] MEDS: RESP: ALBUTEROL 2.5 MG/IPRATROPIUM 0.5 MG NEB (SCH) NEB ×3 (11:00→19:52)
--- NOTE | 2018-03-07 11:29 | RADRPT ---
EXAM DATE: 03/07/2018 11:16 AM EDT AGE/SEX: 82 years / Male INDICATIONS: Repeated falls, cranial bleed. CLINICAL DATA: This is the patient's initial encounter. Patient reports that signs and symptoms have been present for 1 day and indicates a pain score of Nonresponsive. MEDICAL/SURGICAL HISTORY: . CHF. Hypertension. COPD. . Knee surgery. COMPARISON: No prior [facility] exams available for comparison. VELOCITY PARAMETERS: ICA/CCA Ratio: Right 0.75 , Left 1.11 ICA: Right 78 cm/sec, Left 117 cm/sec CCA: Right 104 cm/sec, Left 105 cm/sec ECA: Right 143 cm/sec, Left 126 cm/sec Vertebral: Right 44 cm/sec antegrade, Left 59 cm/sec antegrade FINDINGS: Right Carotid: Bulky calcified plaque extending from the bulb to the origin of the ICA. The wavefor ms are within normal limits. Left Carotid: Bulky calcified plaque extending from the bulb to the origin of the ICA. The waveform s are within normal limits. Other: None. CONCLUSION: 1. Right Internal Carotid Artery: Findings indicate <50% stenosis. 2. Left Internal Carotid Artery: Findings indicate <50% stenosis. Primary Parameters Additional Parameters Stenosis % ICA PSV (cm/sc) Plaque Estimate % ICA/CCA PSV ratio ICA/CC A EDV (cm/sec) Normal <125 None <2 .0 <40 <50% <125 <50% <2. 0 <40 50-69% 125-230 >50% 2.0-4 .0 40-100 >70% >230 >50% >4 .0 100 Electronically signed by: Brian Payan MD 03/07/2018 11:28 AM EDT
--- NOTE | 2018-03-07 13:39 | RADRPT ---
EXAM DATE: 03/07/2018 1:30 PM EDT AGE/SEX: 82 years / Male INDICATIONS: New bleed. Aneurysm. CLINICAL DATA: This is the patient's initial encounter. Patient reports that signs and symptoms have been present for 2 days and indicates a pain score of Nonresponsive. MEDICAL/SURGICAL HISTORY: Non-responsive. Non-responsive. RADIATION DOSE: 40.98 CTDI (mGy) COMPARISON: [facility], CT BRAIN W/O CONTRAST, 03/06/2018. . TECHNIQUE: CT of the head without contrast. Using automated exposure control and adjustment of the mA and/or kV according to patient size, radiation dose was kept as low as reasonably achievable to ob tain optimal diagnostic quality images. FINDINGS: Cerebrum: Slightly increasing hemorrhage in the basilar cisterns greater in the interhemispheric cis tern on the left. There is also some subdural hemorrhage along the tentorium on the left. Bilateral s ubarachnoid hemorrhage is more prominent on current study. No midline shift or mass effect. The ventr icles are normal for age. No evidence of midline shift, mass lesion, or acute infarction. Posterior Fossa: The cerebellum and brainstem are intact. The 4th ventricle is midline. The cerebe llopontine angle is unremarkable. Extracranial: The visualized portion of the orbits is intact. Diffuse opacification of the paranasal sinuses. Skull: The calvaria is intact. No evidence of skull fracture. CONCLUSION: 1. There is increasing subarachnoid hemorrhage bilaterally. 2. There is mild increase in hemorrhage in the basilar cisterns and subarachnoid hemorrhage along th e left tentorium. Electronically signed by: Wes Mason MD 03/07/2018 1:38 PM EDT
--- NOTE | 2018-03-07 13:59 | EKG ---
Date Performed: 03/06/2018 Time Performed: 22:03:54 PTAGE: 82 years EKG: Sinus rhythm with PAC(s). Left axis deviation RBBB with left anterior fascicular block Inferior infarct - age und etermined Abnormal ECG NO PREVIOUS TRACING DOCTOR: Ector Ramirez Interpretating Date/Time 03/07/2018 13:58:28
[2018-03-07] MEDS ORDERED: IOHEXOL 350 MG/ML 10 ML VIAL (for RAD DIAG) IVCONTRAST ONE (14:11)
--- NOTE | 2018-03-07 14:18 | RADRPT ---
EXAM DATE: 03/07/2018 1:29 PM EDT AGE/SEX: 82 years / Male INDICATIONS: New bleed. Aneurysm. CLINICAL DATA: This is the patient's initial encounter. Patient reports that signs and symptoms have been present for 2 days and indicates a pain score of Nonresponsive. MEDICAL/SURGICAL HISTORY: Non-responsive. Non-responsive. RADIATION DOSE: 20.94 CTDI (mGy) ; Combined studies COMPARISON: No prior [facility] exams available for comparison. TECHNIQUE: Volumetric scanning was performed using a multi-row detector CT scanner during bolus infu rena of 99 ml Omnipaque 350 (iohexol) nonionic water-soluble contrast as a cumulative dose for multi ple exams. The data was post processed with a variety of visualization algorithms including full vo lume maximum intensity projection, multi-planar sliding thin slab reformation, curved planar reformat ion, and surface rendering techniques. Using automated exposure control and adjustment of the mA and /or kV according to patient size, radiation dose was kept as low as reasonably achievable to obtain o ptimal diagnostic quality images. FINDINGS: The examination demonstrates atherosclerotic plaquing in the cavernous carotids bilaterally. Examination of the intracranial circulation demonstrates anterior and middle cerebral circulation to be widely patent. There is atherosclerotic plaquing in the vertebral arteries bilaterally. The basilar is widely patent . The posterior cerebral circulation is widely patent. Limited imaging of the lung apices demonstrates advanced COPD changes. CTA of the neck to assess the carotids is pending. CONCLUSION: 1. Intracranial circulation appears widely patent. No large or central vessel occlusion identified. Electronically signed by: Yevgeniy Holcomb MD 03/07/2018 2:17 PM EDT
--- NOTE | 2018-03-07 14:26 | RADRPT ---
EXAM DATE: 03/07/2018 1:21 PM EDT AGE/SEX: 82 years / Male INDICATIONS: New bleed. Aneurysm. CLINICAL DATA: This is the patient's initial encounter. Patient reports that signs and symptoms have been present for 2 days and indicates a pain score of Nonresponsive. MEDICAL/SURGICAL HISTORY: Non-responsive. Non-responsive. RADIATION DOSE: 20.94 CTDI (mGy) COMPARISON: [facility], CTA BRAIN W 3D RECON, 03/07/2018. . TECHNIQUE: Volumetric scanning was performed using a multirow detector CT scanner during bolus infus ion of 99 ml Omnipaque 350 (iohexol) nonionic water-soluble contrast as a cumulative dose for multip le exams. The data was postprocessed with a variety of visualization algorithms including full-volu me maximum intensity projection, multiplanar sliding thin-slab reformation, curved-planar reformation , and surface-rendering techniques. Using automated exposure control and adjustment of the mA and/or kV according to patient size, radiation dose was kept as low as reasonably achievable to obtain opti mal diagnostic quality images. Elevated flow velocities and ICA/CCA ratios have been found to correlate with increased degrees of ve ssel stenosis, calculated as percentage of diameter relative to a normal segment of distal ICA/CCA. FINDINGS: There is normal branching of the great vessels from the arch. There is mild atherosclerotic plaquing at their origins. No significant stenosis is identified. Right carotid: The right common carotid is widely patent. There is minimal atherosclerotic plaquing a t the bifurcation. There is no hemodynamically significant stenosis. The more cephalad portion of the right internal carotid is widely patent. Left carotid: The left common carotid is widely patent. There is moderate atherosclerotic plaquing at the bifurcation. This results in a mild degree of stenosis in the origin of the left internal caroti d. There is both hard and soft plaque present. Stenosis is estimated in the range of approximately 30 % by NASCET criteria. Of note, there does appear to be a ulceration beneath an area of soft plaque ju st above the level the bifurcation. The more cephalad portion of left internal carotid circulation is widely patent. Both vertebral arteries are widely patent. The basilar is widely patent throughout its course. CONCLUSION: 1. Left carotid: Atherosclerotic plaquing at the bifurcation with both hard and soft plaque present. This results in stenosis in the origin of the left internal carotid estimated to be in the range of 30%. Of note, there is a small ulceration beneath an area of soft plaque in the origin of the left in ternal carotid. 2. Right carotid: Minimal plaquing. No hemodynamically significant stenosis identified. 3. Incidental note made of mucoperiosteal thickening and air-fluid levels within the maxillary sinus es. Electronically signed by: Yevgeniy Holcomb MD 03/07/2018 2:24 PM EDT
--- NOTE | 2018-03-07 14:42 | RADRPT ---
EXAM DATE: 03/07/2018 1:33 PM EDT AGE/SEX: 82 years / Male INDICATIONS: Trauma. CLINICAL DATA: This is the patient's initial encounter. Patient reports that signs and symptoms have been present for 2 days and indicates a pain score of Nonresponsive. MEDICAL/SURGICAL HISTORY: Hypertension. Chronic obstructive pulmonary disease. . Knee surgery. COMPARISON: [facility] – [place], CT CERVICAL SPINE W/O CONTRAST, 03/06/2018. . TECHNIQUE: Multiplanar, multisequence MRI examination of the cervical spine was performed without co ntrast. FINDINGS: Sagittal T1 and T2-weighted images demonstrate a grade 1 anterolisthesis of C4 relative to C5. No def inite abnormal marrow signal is seen within the vertebral bodies. The sagittal imaging would suggest a spinal stenosis extending from C3 3 down to C7. There is questionable increased T2 signal within th e cord at the C3/4 level. This examination is significantly degraded by motion artifact. Axial imaging: C2/3: There is central and right-sided disc protrusion which effaces the ventral thecal sac and abuts the ventral aspect of the cord. There is slight flattening of the right side of the cord with osteop hytic spur and disc protrusion encroaching upon the lateral recess and foramina on the right. The for aminal on the left is adequate. C3-4: There is a degenerated disc with broad-based disc bulge and osteophytic ridging. This effaces t he ventral thecal sac. There is mild flattening of ventral aspect of the cord. There is moderate bila teral foraminal narrowing. C4-5: There is a degenerated disc with diffuse osteophytic ridging. There is broad-based disc bulge. This effaces the ventral thecal sac and abuts the ventral aspect of the cord. There is mild flattenin g of the ventral aspect of the cord. There is moderate bilateral foraminal narrowing. C5-6: There is a degenerated disc with diffuse osteophytic ridging. There is effacement of the ventra l thecal sac. There is osteophytic spur and disc bulge which abuts the ventral aspect of the cord. Th ere is slight flattening of ventral aspect of the cord. There is bilateral foraminal narrowing more s evere on the right than the left. C6-7: There is a severely degenerated disc with diffuse osteophytic ridging. This abuts the ventral t hecal sac. There is mild flattening of ventral aspect of the cord. There is moderate to severe bilate ral foraminal narrowing. C7-T1: There is a degenerated disc with osteophytic ridging. This effaces the ventral thecal sac and abuts the ventral aspect of the cord. There is at least a mild degree of spinal stenosis and moderate bilateral foraminal narrowing. CONCLUSION: 1. Examination is limited due to motion artifact. The study would suggest significant spinal stenosi s extending from C3 down to C7. The most significant abnormality appears to be at the C3-4 level ther e is questionable increased T2 signal within the cord across this level. This examination is quite li mited and prior to intervention a CT myelogram may be of benefit for further assessment. 2. I do not see evidence of significant marrow edema across the C3-4 level. There is an anterolisthe sis at this level as described on the patient's prior CT imaging. Electronically signed by: Yevgeniy Holcomb MD 03/07/2018 2:40 PM EDT
--- NOTE | 2018-03-07 14:52 | HHI.CCPN ---
Subjective Brief History Elderly gentleman who was walking his dog fell under unknown circumstances on a flat surface sustained injuries to the head and right leg. It is unclear whether patient lost consciousness however he was very confused on the scene. Transferred to our institution as priority 1 trauma alert and on arrival due to level of consciousness patient was intubated and ventilated. Patient was resuscitated according to trauma principles and full workup was completed Injuries diagnosed on initial workup Intracranial subarachnoid and subdural bilateral hemorrhage with some intraventricular hemorrhage and frontal contusions Facial bruising / laceration and bilateral maxillary sinus fractures Right femoral neck fracture Right talus fracture Patient was placed in the ICU and appropriate services were consulted It should be noted that patient has prior history of falls very recently twice at which time he might have had some tremors rising suspicion about small vessel disease and possible TIAs versus strokes Patient was on multiple medications but currently not removed due to their physiological effects in current condition 24 Hour Review/Hospital Course 03/07/2018 Neurologically unchanged Patient on small dose propofol and fentanyl Remains sedated and intubated ventilated CTA of the brain pending Ultrasound of the carotids reveals about 50% bilateral stenosis and this does not appear to be hemodynamically significant or related to the patient's frequent falls Hemodynamically patient is stable Abdomen is soft nontender no rebound no guarding no masses Right femoral neck fracture and right talus fracture will need to be addressed by orthopedics and patient is going for surgery tomorrow At this point is stable to have the surgery done Objective Vital Signs Date Time Temp Pulse Resp B/P (MAP) Pulse Ox O2 Delivery O2 Flow Rate FiO2 03/07/18 14:02 100 100 03/07/18 14:00 89 03/07/18 12:00 99.5 20 118/58 (78) 03/07/18 07:00 Mechanical Ventilator 03/06/18 20:18 4.00 Intake and Output 03/07/18 03/07/18 03/08/18 08:00 16:00 00:00 Intake Total 100.6 ml 1205 ml Output Total 825 ml Balance -724.4 ml 1205 ml Result Diagram: 03/07/18 0445 03/07/18 0445 Other Results Laboratory Tests Test 03/06/18 20:48 03/07/18 03:30 Blood Gas Puncture Site LT BRACHIAL ART LINE Blood Gas Patient Temperature 98.6 98.6 Blood Gas HCO3 21 mmol/L (22-26) 19 mmol/L (22-26) Blood Gas Base Excess -5.0 mmol/L (-2-2) -5.4 mmol/L (-2-2) Blood Gas Oxygen Saturation 94 % (90-100) 96 % (90-100) Arterial Blood pH 7.28 (7.380-7.420) 7.35 (7.380-7.420) Arterial Blood Partial Pressure CO2 46 mmHg (38-42) 36 mmHg (38-42) Arterial Blood Partial Pressure O2 95 mmHg (61-120) 121 mmHg (61-120) Arterial Blood Oxygen Content 18.2 Vol % (12.0-20.0) 17.1 Vol % (12.0-20.0) Arterial Blood Carboxyhemoglobin 1.2 % (0-4) 1.4 % (0-4) Arterial Blood Methemoglobin 1.0 % (0-2) 0.9 % (0-2) Blood Gas Hemoglobin 13.8 G/DL (12.0-16.0) 12.5 G/DL (12.0-16.0) Oxygen Delivery Device VENTILATOR VENTILATOR Blood Gas Ventilator Setting AC/16/500/PEEP 5 AC/18/550/PEEP 5 Blood Gas Inspired Oxygen 50 % 50 % Imaging Last 24 hours Impressions Head CTA 03/07/18799 Signed Impressions: CONCLUSION: 1. Intracranial circulation appears widely patent. No large or central vessel occlusion identified. Head CT 03/07/18799 Signed Impressions: CONCLUSION: 1. There is increasing subarachnoid hemorrhage bilaterally. 2. There is mild increase in hemorrhage in the basilar cisterns and subarachno id hemorrhage along the left tentorium. Neck CTA 03/07/18 Signed Impressions: CONCLUSION: 1. Left carotid: Atherosclerotic plaquing at the bifurcation with both hard an d soft plaque present. This results in stenosis in the origin of the left inter nal carotid estimated to be in the range of 30%. Of note, there is a small ulce ration beneath an area of soft plaque in the origin of the left internal caroti d. 2. Right carotid: Minimal plaquing. No hemodynamically significant stenosis id entified. 3. Incidental note made of mucoperiosteal thickening and air-fluid levels with in the maxillary sinuses. Chest X-Ray 03/07/18 Signed Impressions: CONCLUSION: Placement of NG tube, otherwise not significantly changed. Cervical Spine MRI 03/07/18 Signed Impressions: CONCLUSION: 1. Examination is limited due to motion artifact. The study would suggest sign ificant spinal stenosis extending from C3 down to C7. The most significant abno rmality appears to be at the C3-4 level there is questionable increased T2 sign al within the cord across this level. This examination is quite limited and duane or to intervention a CT myelogram may be of benefit for further assessment. 2. I do not see evidence of significant marrow edema across the C3-4 level. Th ere is an anterolisthesis at this level as described on the patient's prior CT imaging. Carotid Artery Ultrasound 03/07/18 Signed Impressions: CONCLUSION: 1. Right Internal Carotid Artery: Findings indicate <50% stenosis. 2. Left Internal Carotid Artery: Findings indicate <50% stenosis. Primary Parameters Additional Parameters Stenosis % ICA PSV (cm/sc) Plaque Estimate % ICA/C CA PSV ratio ICA/CCA EDV (cm/sec) Normal <125 None <2.0 <40 <50% <125 <50% <2.0 <40 50-69% 125-230 >50% 2.0-4.0 40-100 >70% >230 >50% >4.[address] 03/06/181857 Signed Impressions: CONCLUSION: 1. Negative for acute traumatic injury within the thorax. Moderate to severe e mphysema with dependent atelectasis in the lungs. No pneumothorax or effusions. Abdomen/Pelvis CT 03/06/181857 Signed Impressions: CONCLUSION: 1. Right femoral neck fracture is slightly angulated and comminuted. 2. Negative for acute traumatic injury within the abdomen and pelvis. Hepatic and right renal cyst. Pelvis X-Ray 03/06/181845 Signed Impressions: CONCLUSION: Right femoral neck fracture with angular deformity. Maxillofacial CT 03/06/181845 Signed Impressions: CONCLUSION: 1. Bilateral relatively nondisplaced maxillary sinus fractures with fluid and hemorrhage in the maxillary sinuses and a small amount of air outside the left maxillary sinus laterally. Head CT 03/06/181845 Signed Impressions: CONCLUSION: 1. Subarachnoid hemorrhage bilaterally but especially around the posterior bra instem. Probable trace subdural hemorrhage in the interhemispheric region and t here is also a small amount of intraventricular hemorrhage. Currently no mass e ffect or shift or hydrocephalus. Chest X-Ray 03/06/181845 Signed Impressions: CONCLUSION: Limited exam but no pneumothorax or effusion identified. No mediastinal widenin g. Probable dependent atelectasis in the lungs. Cervical Spine CT 03/06/181845 Signed Impressions: CONCLUSION: 1. Widening of the anterior disc interspace at C3-4 with minimal anterolisthes is. It is unclear if this is an acute or chronic finding. This would be better evaluated with MRI of cervical spine when patient is able. Ankle X-Ray 03/06/181845 Signed Impressions: CONCLUSION: Questionable avulsion fracture anterior to the talus. 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 Neurologically unchanged Patient on small dose propofol and fentanyl Remains sedated and intubated ventilated CTA of the brain pending Ultrasound of the carotids reveals about 50% bilateral stenosis and this does not appear to be hemodynamically significant or related to the patient's frequent falls Hemodynamic/Cardiac Hemodynamically patient is stable Pulmonary/Respiratory Bilateral breath sounds fully ventilatory dependent patient has severe COPD but good FiO2 PO2 gradient We will remain intubated until after ORIF of the right femoral neck fracture We will slowly wean off the data and see how patient wakes up Abdomen/GI Nutrition Abdomen is soft nontender no rebound no guarding no masses Renal/I&O Renal function preserved Assessment and Plan Attestation Right femoral neck fracture and right talus fracture will need to be addressed by orthopedics and patient is going for surgery tomorrow At this point is stable to have the surgery done I have discussed the care and prospects with and friend at length. This patient has very poor prognosis in the face of his age severe brain injury and hip fracture The chances of full recovery of virtually 0 however patient will recover to some extent provided that he does not develop any major complication The most common complication this situation would be pneumonia and patient is already in a functional decline very poor pulmonary function Critical care time 36 minutes Peterson Torres MD March 07, 2018 14:52
[2018-03-07] MEDS: ACETAMINOPHEN 325 MG TAB PO PRN ×2 (16:47→22:49)
--- NOTE | 2018-03-07 17:48 | MB ---
cc: Sheng Concepcion DMD DATE: 03/06/2018 HISTORY OF PRESENT ILLNESS: This is an 82-year-old male who I examined earlier this morning. He is intubated, sedated, and is on the vent. He is status post falling down, found after walking his dog. So he came in and he was taken to the trauma bay. He was confused with waxing and waning GCS. He was intubated and taken to the ICU. PAST MEDICAL HISTORY: As per report, COPD, CHF. PAST SURGICAL HISTORY: Knee surgery. ALLERGIES: NO KNOWN DRUG ALLERGIES. PHYSICAL EXAMINATION: HEENT: Facial bones, nasal bones have been palpated. No crepitus ____. He has got some right-sided facial edema that is mild with some erythema. He has got a laceration approximately 4 cm on the right side of his forehead. It is stellate with irregular wound margins. There is no force point of motion of the maxilla or the mandible. NECK: He also has a C-collar that is on at this time. VITAL SIGNS: Temperature 100.6, pulse is 87, respirations 20, blood pressure is 147/67 with oxygen saturation 100%. IMAGING STUDIES: CT scan of the facial bones shows minimally displaced/nondisplaced maxillary sinus fractures with air fluid levels into the maxillary sinus. LABORATORY DATA: White count is 9.5 with H and H 12.7 and 38.1 with platelets of 203. PT 7.4. INR is 1.1. IMPRESSION AND PLAN: This is an 82-year-old male with status post walking his dog and he fell with nondisplaced bilateral maxillary sinus fractures with air fluid level in it. Also, he has got a 4 cm laceration on his right side of his forehead. No surgical intervention needed for his sinus fractures. We will advise to put the patient on sinus precautions. We will plan to close the laceration at bedside. PROCEDURE: Lidocaine 1% was injected over the operative site, right side of the forehead, approximately 4 mL. The site was now prepped with Betadine solution. Draped in normal sterile fashion. Irrigated with saline solution. The wound margins that were irregular and not healthy at this time were trimmed with scissors. At this point, 4-0 Vicryl sutures were put deep to reapproximate the wound. Finally, the skin was now closed with 6-0 Prolene suture. Neosporin ointment was placed on top of the wound site. The patient tolerated the procedure well, assisted by the patient's nurse. No complications noted. Minimal bleeding. DEMARIO Almeida/REMI , 05:25 PM , 05:47 PM
[2018-03-07] MEDS: CHLORHEXIDINE 0.12% (ORAL KIT) 15 ML CUP MT SCH (20:36)
[2018-03-08] VITALS (17 sets, daily range): BP systolic 112–134; BP diastolic 40–60; PULSE 85–110; RESP 18; TEMP 100.4–101.5; O2SAT 93–100
[2018-03-08] MEDS: RESP: ALBUTEROL 2.5 MG/IPRATROPIUM 0.5 MG NEB (SCH) NEB ×4 (03:35→20:08)
[2018-03-08] MEDS: CHLORHEXIDINE GLUCONATE 2 % 1 PACK (2 CLOTHS) TOP SCH (04:17)
[2018-03-08 04:58] LABS: AUTOMATED NEUTROPHIL # 7.8 TH/MM3 (1.8-7.7); BASOPHIL # 0.1 TH/MM3 (0-0.2); BASOPHIL % 1.1 % (0.0-2.0); EOSINOPHIL # 0.3 TH/MM3 (0-0.4); EOSINOPHIL % 2.9 % (0.0-4.0); HEMATOCRIT 35.3 % (39.0-51.0); HEMOGLOBIN 11.7 GM/DL (13.0-17.0); LYMPH % 10.2 % (9.0-44.0); MEAN CELL VOLUME 88.9 FL (80.0-100.0); MEAN CORPUSCULAR HEMOGLOBIN 29.4 PG (27.0-34.0); MEAN CORPUSCULAR HGB CONC 33.1 % (32.0-36.0); MEAN PLATELET VOLUME 8.9 FL (7.0-11.0); MONO % 7.4 % (0.0-8.0); MONOCYTE # 0.7 TH/MM3 (0-0.9); NEUT % 78.4 % (16.0-70.0); PLATELET COUNT 173 TH/MM3 (150-450); RED BLOOD COUNT 3.97 MIL/MM3 (4.50-5.90); WHITE BLOOD COUNT 9.9 TH/MM3 (4.0-11.0)
[2018-03-08 05:26] LABS: ALBUMIN 2.6 GM/DL (3.4-5.0); AST (GOT) 42 U/L (15-37); BICARBONATE 18.3 MEQ/L (21.0-32.0); BLOOD UREA NITROGEN 20 MG/DL (7-18); CALCIUM 7.8 MG/DL (8.5-10.1); CHLORIDE 114 MEQ/L (98-107); CREATININE 1.06 MG/DL (0.60-1.30); GLOMERULAR FILTRATION RATE 67 ML/MIN (>89); GLUCOSE,RANDOM 64 MG/DL (74-106); SODIUM (NA) 144 MEQ/L (136-145)
[2018-03-08 05:27] LABS: ALT (GPT) 21 U/L (12-78)
[2018-03-08 05:29] LABS: ALKALINE PHOSPHATASE 76 U/L (45-117); TOTAL BILIRUBIN ADULT 1.1 MG/DL (0.2-1.0); TOTAL PROTEIN 5.3 GM/DL (6.4-8.2)
--- NOTE | 2018-03-08 05:53 | RADRPT ---
EXAM DATE: 03/08/2018 5:50 AM EDT AGE/SEX: 82 years / Male INDICATIONS: Shortness of breath. CLINICAL DATA: This is the patient's subsequent encounter. Patient reports that signs and symptoms h ave been present for 3 days and indicates a pain score of Nonresponsive. MEDICAL/SURGICAL HISTORY: Non-responsive. Non-responsive. COMPARISON: [facility], CHEST SINGLE AP, 03/07/2018. . FINDINGS: ET tube and NG tube have not changed. There is slight worsening of pulmonary edema since the prior ex am. CONCLUSION: Slight worsening pulmonary edema. Electronically signed by: Horacio Fernandez MD 03/08/2018 5:52 AM EDT
[2018-03-08] MEDS: SODIUM CHLOR 0.9% 1000 ML INJ 1,000 ML IV SCH ×2 (06:07→16:15)
--- NOTE | 2018-03-08 07:26 | PD.ORT.PN ---
Subjective Subjective Remarks Patient stable overnight. Objective Vitals Vital Signs Date Time Temp Pulse Resp B/P (MAP) Pulse Ox O2 Delivery O2 Flow Rate FiO2 03/08/18 06:00 96 03/08/18 04:00 92 03/08/18 04:00 30 03/08/18 04:00 100.4 92 18 112/44 (66) 96 03/08/18 03:35 93 30 03/08/18 02:00 89 03/08/18 00:00 100.4 88 18 112/40 (64) 95 03/08/18 00:00 88 03/08/18 00:00 30 03/07/18 23:42 95 30 03/07/18 22:00 95 03/07/18 20:00 82 03/07/18 20:00 101.5 82 18 116/40 (65) 98 03/07/18 20:00 30 03/07/18 19:53 100 30 03/07/18 19:00 100 Mechanical Ventilator 40 03/07/18 18:00 84 03/07/18 16:00 40 03/07/18 16:00 100.6 86 20 147/67 (93) 100 03/07/18 16:00 87 03/07/18 15:59 98 40 03/07/18 14:02 100 100 03/07/18 14:01 100 100 03/07/18 14:00 89 03/07/18 12:00 90 03/07/18 12:00 40 03/07/18 12:00 99.5 90 20 118/58 (78) 100 03/07/18 11:00 100 40 03/07/18 10:00 90 03/07/18 08:00 100.6 88 20 131/46 (74) 100 03/07/18 08:00 93 03/07/18 08:00 50 03/07/18 07:54 100 50 I/O 03/07/18 03/07/18 03/07/18 03/08/18 03/08/18 03/08/18 07:00 15:00 23:00 07:00 15:00 23:00 Intake Total 75.6 ml 1230 ml 1110 ml 1205.4 ml Output Total 825 ml 600 ml 300 ml Balance -749.4 ml 1230 ml 510 ml 905.4 ml Intake IV Total 75.6 ml 1230 ml 1110 ml 1205.4 ml Output Urine Total 825 ml 600 ml 300 ml # Bowel Movements 0 0 0 Result Diagram: 03/08/1844403/08/18444 Imaging Last 24 hours Impressions Chest X-Ray 03/08/18599 Signed Impressions: CONCLUSION: Slight worsening pulmonary edema. Head CTA 03/07/18799 Signed Impressions: CONCLUSION: 1. Intracranial circulation appears widely patent. No large or central vessel occlusion identified. Head CT 03/07/18799 Signed Impressions: CONCLUSION: 1. There is increasing subarachnoid hemorrhage bilaterally. 2. There is mild increase in hemorrhage in the basilar cisterns and subarachno id hemorrhage along the left tentorium. Assessment & Plan Assessment and Plan 82-year-old gentleman who presents as polytrauma with head bleed, question of cervical spine injury, right femoral neck fracture and possible small capsular avulsion off anterior talus 1. Patient will require right hip hemiarthroplasty for his right femoral neck fracture. Patient will need neurosurgery clearance for surgery given his head bleed and question of cervical spine injury. He will require being placed in a lateral position for this to be performed and therefore will need neurosurgery' s approval to be placed in this position given question of cervical spine injury. 2. Should the patient be cleared for surgery, likely surgery will be performed either or Tuesday. No plan for operative intervention on his talus as this appears to be more of a capsular avulsion rather than true fracture. Ml Baker MD March 08, 2018 07:26
[2018-03-08] MEDS: CHLORHEXIDINE 0.12% (ORAL KIT) 15 ML CUP MT SCH ×2 (08:46→21:05)
--- NOTE | 2018-03-08 08:57 | HHI.NSPN ---
(Wes Curry) History Chief Complaint: Intubated and sedated with extensive traumatic SAH. (Wes Curry) Interval History Elderly gentleman who appears to be in his 80s brought in as a trauma alert to [facility] after a fall while walking his dog with questionable loss of consciousness. Patient was confused but responding on arrival although lethargic. He was intubated and further trauma workup included CT scan of the head which reveals traumatic subarachnoid hemorrhage overlying the convexities as well as frontoparietal interhemispheric small subdural hemorrhage and subarachnoid hemorrhage in the ambient cisterns bilaterally. There is also small left intraventricular hemorrhage but no hydrocephalus. There is generalized cerebral atrophy and no mass-effect or midline shift. CT of cervical spine shows widening of the C3-4 interspace with the advanced C4-5 degenerative disc disease and possible autofusion along with extensive degenerative changes. He also has a right femoral fracture. Currently is intubated and sedated and no family member is at the bedside or any previous medical history known. 03/07/18: Pt intubated and sedated on Diprivan. Not opening eyes. Not following commands. Currently fighting vent. 03/08/18: Pt intubated and sedated on Diprivan and Fentanyl drips. He gets agitated when sedation held. He is not following commands. Pupils 2mm NR bilaterally. (Wes Curry) System Review Comments Not able to obtain given clinical condition. (Wes Curry) Exam Results Vital Signs Date Time Temp Pulse Resp B/P (MAP) Pulse Ox O2 Delivery O2 Flow Rate FiO2 03/08/18 07:58 95 30 03/08/18 07:00 Mechanical Ventilator 03/08/18 06:00 96 03/08/18 04:00 100.4 18 112/44 (66) 03/06/18 20:18 4.00 Intake and Output 03/08/18 03/08/18 03/09/18 08:00 16:00 00:00 Intake Total 1205.4 ml Output Total 300 ml Balance 905.4 ml (Wes Curry) Physical Examination General: Pt sedated and intubated on Diprivan and Fentanyl drips. Eyes: Pupils equal and reactive. Sclera anicteric. Resp: CTA bilaterally. Intubated. Volume control. Rate 18. Peep 5. FiO2 30 %. Heart: NSR no murmurs Abd: Soft positive bs Skin: No cyanosis or erythema. Right LE splinted and bandaged. SCD to LLE. Muscle: Moves all 4 extremities spontaneously but not following commands for muscle testing. Cervical collar intact. Withdraws UEs to pain. Neuro: Pt sedated on Diprivan. Not opening eyes or following commands. Pupils 2mm bilaterally NR bilaterally this morning small. (Wes Curry) Lab, Micro, Other Results Last Impressions Chest X-Ray 03/08/18 06 Signed Impressions: CONCLUSION: Slight worsening pulmonary edema. Head CTA 03/07/18 08 Signed Impressions: CONCLUSION: 1. Intracranial circulation appears widely patent. No large or central vessel occlusion identified. Head CT 03/07/18 08 Signed Impressions: CONCLUSION: 1. There is increasing subarachnoid hemorrhage bilaterally. 2. There is mild increase in hemorrhage in the basilar cisterns and subarachno id hemorrhage along the left tentorium. Neck CTA 03/07/18 0000 Signed Impressions: CONCLUSION: 1. Left carotid: Atherosclerotic plaquing at the bifurcation with both hard an d soft plaque present. This results in stenosis in the origin of the left inter nal carotid estimated to be in the range of 30%. Of note, there is a small ulce ration beneath an area of soft plaque in the origin of the left internal caroti d. 2. Right carotid: Minimal plaquing. No hemodynamically significant stenosis id entified. 3. Incidental note made of mucoperiosteal thickening and air-fluid levels with in the maxillary sinuses. Cervical Spine MRI 03/07/18 0000 Signed Impressions: CONCLUSION: 1. Examination is limited due to motion artifact. The study would suggest sign ificant spinal stenosis extending from C3 down to C7. The most significant abno rmality appears to be at the C3-4 level there is questionable increased T2 sign al within the cord across this level. This examination is quite limited and duane or to intervention a CT myelogram may be of benefit for further assessment. 2. I do not see evidence of significant marrow edema across the C3-4 level. Th ere is an anterolisthesis at this level as described on the patient's prior CT imaging. Carotid Artery Ultrasound 03/07/18 0000 Signed Impressions: CONCLUSION: 1. Right Internal Carotid Artery: Findings indicate <50% stenosis. 2. Left Internal Carotid Artery: Findings indicate <50% stenosis. Primary Parameters Additional Parameters Stenosis % ICA PSV (cm/sc) Plaque Estimate % ICA/C CA PSV ratio ICA/CCA EDV (cm/sec) Normal <125 None <2.0 <40 <50% <125 <50% <2.0 <40 50-69% 125-230 >50% 2.0-4.0 40-100 >70% >230 >50% >4.[address] 03/06/181857 Signed Impressions: CONCLUSION: 1. Negative for acute traumatic injury within the thorax. Moderate to severe e mphysema with dependent atelectasis in the lungs. No pneumothorax or effusions. Abdomen/Pelvis CT 03/06/181857 Signed Impressions: CONCLUSION: 1. Right femoral neck fracture is slightly angulated and comminuted. 2. Negative for acute traumatic injury within the abdomen and pelvis. Hepatic and right renal cyst. Pelvis X-Ray 03/06/181845 Signed Impressions: CONCLUSION: Right femoral neck fracture with angular deformity. Maxillofacial CT 03/06/181845 Signed Impressions: CONCLUSION: 1. Bilateral relatively nondisplaced maxillary sinus fractures with fluid and hemorrhage in the maxillary sinuses and a small amount of air outside the left maxillary sinus laterally. Cervical Spine CT 03/06/181845 Signed Impressions: CONCLUSION: 1. Widening of the anterior disc interspace at C3-4 with minimal anterolisthes is. It is unclear if this is an acute or chronic finding. This would be better evaluated with MRI of cervical spine when patient is able. Ankle X-Ray 03/06/181845 Signed Impressions: CONCLUSION: Questionable avulsion fracture anterior to the talus. Laboratory Tests Test 03/08/18 04:09 03/08/18 04:45 Blood Gas Puncture Site SHERIF Blood Gas Patient Temperature 98.6 Blood Gas HCO3 16 mmol/L Blood Gas Base Excess -9.0 mmol/L Blood Gas Oxygen Saturation 91 % Arterial Blood pH 7.30 Arterial Blood Partial Pressure CO2 34 mmHg Arterial Blood Partial Pressure O2 72 mmHg Arterial Blood Oxygen Content 14.5 Vol % Arterial Blood Carboxyhemoglobin 2.0 % Arterial Blood Methemoglobin 0.9 % Blood Gas Hemoglobin 11.3 G/DL Oxygen Delivery Device VENTILATOR Blood Gas Ventilator Setting AC/18/550/PEEP 5 Blood Gas Inspired Oxygen 30 % White Blood Count 9.9 TH/MM3 Red Blood Count 3.97 MIL/MM3 Hemoglobin 11.7 GM/DL Hematocrit 35.3 % Mean Corpuscular Volume 88.9 FL Mean Corpuscular Hemoglobin 29.4 PG Mean Corpuscular Hemoglobin Concent 33.1 % Red Cell Distribution Width 14.0 % Platelet Count 173 TH/MM3 Mean Platelet Volume 8.9 FL Neutrophils (%) (Auto) 78.4 % Lymphocytes (%) (Auto) 10.2 % Monocytes (%) (Auto) 7.4 % Eosinophils (%) (Auto) 2.9 % Basophils (%) (Auto) 1.1 % Neutrophils # (Auto) 7.8 TH/MM3 Lymphocytes # (Auto) 1.0 TH/MM3 Monocytes # (Auto) 0.7 TH/MM3 Eosinophils # (Auto) 0.3 TH/MM3 Basophils # (Auto) 0.1 TH/MM3 CBC Comment DIFF FINAL Differential Comment Blood Urea Nitrogen 20 MG/DL Creatinine 1.06 MG/DL Random Glucose 64 MG/DL Total Protein 5.3 GM/DL Albumin 2.6 GM/DL Calcium Level 7.8 MG/DL Alkaline Phosphatase 76 U/L Aspartate Amino Transf (AST/SGOT) 42 U/L Alanine Aminotransferase (ALT/SGPT) 21 U/L Total Bilirubin 1.1 MG/DL Sodium Level 144 MEQ/L Potassium Level 3.9 MEQ/L Chloride Level 114 MEQ/L Carbon Dioxide Level 18.3 MEQ/L Anion Gap 12 MEQ/L Estimat Glomerular Filtration Rate 67 ML/MIN (Wes Curry) Medical Decision Making Impression and Plan A: 82 y/o M with 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 He has C3-4 interspace widening with the possibility of ligamentous disruption/injury. P: Continue to monitor closely in the surgical intensive care unit. Keep HOB elevated at 30. Cervical collar for possible C3-4 ligamentous/soft tissue injury and cervical stenosis. Continue with seizure prophylaxis with Keppra, Continue with mechanical DVT prophylaxis and gastrointestinal stress ulcer prophylaxis. (Wes Curry) Attending Statement The exam, history, and the medical decision-making described in the above note were completed with the assistance of the mid-level provider. I reviewed and agree with the findings presented. I attest that I had a [id number] encounter with the patient on the same day, and personally performed and documented my assessment and findings in the medical record. Follow-up CT of the head with areas of subarachnoid hemorrhage and generalized atrophy. CT angiogram of the brain with no underlying vascular abnormality. Repeat MRI scan of the cervical spine since initial one had significant motion artifact shows multilevel cervical stenosis from C3-C7 with the C3-4 disc space widening and C4-5 anterolisthesis. Discussed at length today with the patient's treatment options for the cervical spine. He has advanced COPD with as needed home oxygen use and also history of congestive heart failure although his ejection fraction is unknown. At this point we will continue with conservative management and cervical collar and if he does recuperate from his traumatic brain injury and respiratory failure then we could contemplate cervical spine decompression/stabilization. She is in complete agreement. (Mannie Lowery MD) Wes Curry March 08, 2018 08:57 Mannie Lowery MD March 08, 2018 17:25
[2018-03-08] MEDS: DOCUSATE SODIUM 50 MG/SENNA 8.6 MG TAB PO SCH ×2 (09:45→21:06)
[2018-03-08] MEDS: DOCUSATE SODIUM 100 MG CAP PO SCH ×2 (09:45→21:06)
[2018-03-08] MEDS: PANTOPRAZOLE SODIUM 40 MG VIAL IVP SCH (09:45)
[2018-03-08] MEDS: BACITRACIN TOP OINT 15 GM TUBE TOP SCH ×2 (09:45→21:07)
[2018-03-08] MEDS: levETIRAcetam INJ 500 MG in SODIUM CHLORIDE 0.9% INJ 100 ML IV SCH ×2 (09:51→21:06)
[2018-03-08] MEDS: fentaNYL DRIP 250 ML IV PRN (10:00)
[2018-03-08] MEDS ORDERED: SODIUM CHLORID 0.9% 500 ML INJ 500 ML IV ONE (15:00)
--- NOTE | 2018-03-08 15:15 | HHI.CCPN ---
Subjective Brief History Elderly gentleman who was walking his dog fell under unknown circumstances on a flat surface sustained injuries to the head and right leg. It is unclear whether patient lost consciousness however he was very confused on the scene. Transferred to our institution as priority 1 trauma alert and on arrival due to level of consciousness patient was intubated and ventilated. Patient was resuscitated according to trauma principles and full workup was completed Injuries diagnosed on initial workup Intracranial subarachnoid and subdural bilateral hemorrhage with some intraventricular hemorrhage and frontal contusions Facial bruising / laceration and bilateral maxillary sinus fractures Right femoral neck fracture Right talus fracture Patient was placed in the ICU and appropriate services were consulted It should be noted that patient has prior history of falls very recently twice at which time he might have had some tremors rising suspicion about small vessel disease and possible TIAs versus strokes Patient was on multiple medications but currently not removed due to their physiological effects in current condition 24 Hour Review/Hospital Course 03/07/2018 Neurologically unchanged Patient on small dose propofol and fentanyl Remains sedated and intubated ventilated CTA of the brain pending Ultrasound of the carotids reveals about 50% bilateral stenosis and this does not appear to be hemodynamically significant or related to the patient's frequent falls Hemodynamically patient is stable Abdomen is soft nontender no rebound no guarding no masses Right femoral neck fracture and right talus fracture will need to be addressed by orthopedics and patient is going for surgery tomorrow At this point is stable to have the surgery done 03/08/2018 No change in neurologic status Remains on neuroprotective measures including propofol and fentanyl fairly small dose Assist-control ventilation Good bilateral breath sounds Patient is cleared for orthopedic surgery Discussed with the family Objective Vital Signs Date Time Temp Pulse Resp B/P (MAP) Pulse Ox O2 Delivery O2 Flow Rate FiO2 03/08/18 14:00 105 03/08/18 12:32 100 100 03/08/18 12:00 100.6 18 125/50 (75) 03/08/18 07:00 Mechanical Ventilator 03/06/18 20:18 4.00 Intake and Output 03/08/18 03/08/18 03/09/18 08:00 16:00 00:00 Intake Total 1205.4 ml Output Total 300 ml Balance 905.4 ml Result Diagram: 03/08/18 0445 03/08/18 0445 Other Results Laboratory Tests Test 03/08/18 04:09 Blood Gas Puncture Site SHERIF Blood Gas Patient Temperature 98.6 Blood Gas HCO3 16 mmol/L (22-26) Blood Gas Base Excess -9.0 mmol/L (-2-2) Blood Gas Oxygen Saturation 91 % (90-100) Arterial Blood pH 7.30 (7.380-7.420) Arterial Blood Partial Pressure CO2 34 mmHg (38-42) Arterial Blood Partial Pressure O2 72 mmHg (61-120) Arterial Blood Oxygen Content 14.5 Vol % (12.0-20.0) Arterial Blood Carboxyhemoglobin 2.0 % (0-4) Arterial Blood Methemoglobin 0.9 % (0-2) Blood Gas Hemoglobin 11.3 G/DL (12.0-16.0) Oxygen Delivery Device VENTILATOR Blood Gas Ventilator Setting AC/18/550/PEEP 5 Blood Gas Inspired Oxygen 30 % Imaging Last 24 hours Impressions Chest X-Ray 03/08/18 0600 Signed Impressions: CONCLUSION: Slight worsening pulmonary edema. Exam [employer]POSIT[employer] Sedated intubated and ventilated MRI of the neck today to assess for the C4 possible injury results pending remains on neuroprotective measures and sedation Hemodynamic/Cardiac Hemodynamically stable Pulmonary/Respiratory Bilateral good breath sounds remains on assist control ventilation Abdomen/GI Nutrition Abdomen soft enteral feeds to be started depending on the orthopedic surgery planning Renal/I&O Renal function preserved Assessment and Plan Attestation Critical care time 32 min Peterson Torres MD March 08, 2018 15:15
--- NOTE | 2018-03-08 15:57 | RADRPT ---
EXAM DATE: 03/08/2018 11:04 AM EDT AGE/SEX: 82 years / Male INDICATIONS: Trauma. CLINICAL DATA: This is the patient's subsequent encounter. Patient reports that signs and symptoms h ave been present for 3 days and indicates a pain score of Nonresponsive. MEDICAL/SURGICAL HISTORY: Hypertension. Chronic obstructive pulmonary disease. GERD, CHF . Kn ee surgery COMPARISON: [facility] [place] CERVICAL SPINE W/O CONTRAST, 03/07/2018. . TECHNIQUE: Multiplanar, multisequence MRI examination of the cervical spine was performed without co ntrast. Study was repeated because of first exam was extensively degraded by motion artifact. FINDINGS: Vertebrae: Normal vertebral body height. Homogeneous marrow signal. Alignment: Minimal anterolisthesis of C4 on C5. Cord: Normal configuration and signal. Post Fossa: The cerebellar tonsils are normal in position. C2-C3: Mild uncinate ridging is present without significant spinal stenosis. Moderate right-sided ne ural foraminal encroachment. C3-C4: Moderate uncinate ridging with moderate right-sided neural foraminal encroachment and mild ri ght-sided spinal stenosis. C4-C5: Moderate uncinate ridging flattening the anterior thecal space at all but obliterating. There is moderate bilateral neural foraminal encroachment. There is no increased signal in the cord. C5-C6: Moderate uncinate ridging is present obliterating the anterior thecal space with moderate tay ateral neural foraminal encroachment. C6-C7: Moderate uncinate ridging is present flattening the anterior thecal space and touching the co rd moderate bilateral neural foraminal encroachment. C7-T1: No significant epidural impressions seen. CONCLUSION: 1. Spinal stenosis as above worse from C5 to C7. 2. There is no increased signal in the cord 3. Controlled flexion-extension films may be of benefit to evaluate C4-C5 listhesis. Electronically signed by: Messi Holcomb MD 03/08/2018 3:56 PM EDT
[2018-03-08] MEDS: PROPOFOL 1000 MG/100 ML INJ 100 ML IV PRN (16:15)
[2018-03-08] MEDS: ACETAMINOPHEN 325 MG TAB PO PRN (18:00)
[2018-03-08] MEDS ORDERED: ALBUMIN 5% INJ 500 ML IV ONE (21:15)
[2018-03-09] VITALS (19 sets, daily range): BP systolic 126–171; BP diastolic 48–108; PULSE 84–103; RESP 18–19; TEMP 99–100; O2SAT 94–100
[2018-03-09] MEDS: SODIUM CHLOR 0.9% 1000 ML INJ 1,000 ML IV SCH ×3 (02:35→20:59)
[2018-03-09] MEDS: CHLORHEXIDINE GLUCONATE 2 % 1 PACK (2 CLOTHS) TOP SCH (03:54)
[2018-03-09] MEDS: RESP: ALBUTEROL 2.5 MG/IPRATROPIUM 0.5 MG NEB (SCH) NEB ×4 (03:59→20:12)
--- NOTE | 2018-03-09 04:07 | RADRPT ---
EXAM DATE: 03/09/2018 3:34 AM EDT AGE/SEX: 82 years / Male INDICATIONS: Short of breath. CLINICAL DATA: This is the patient's subsequent encounter. Patient reports that signs and symptoms h ave been present for 4 - 6 days and indicates a pain score of Nonresponsive. MEDICAL/SURGICAL HISTORY: Non-responsive. Non-responsive. COMPARISON: [facility], CHEST SINGLE AP, 03/08/2018. . FINDINGS: ET tube and NG tube have not changed. There is mild prominence of the interstitial markings probable pulmonary edema not significantly changed. Heart and mediastinum have not changed. CONCLUSION: No appreciable change. Electronically signed by: Horacio Fernandez MD 03/09/2018 4:05 AM EDT
[2018-03-09 04:54] LABS: AUTOMATED NEUTROPHIL # 6.1 TH/MM3 (1.8-7.7); BASOPHIL # 0.1 TH/MM3 (0-0.2); BASOPHIL % 0.7 % (0.0-2.0); EOSINOPHIL # 0.3 TH/MM3 (0-0.4); EOSINOPHIL % 3.9 % (0.0-4.0); HEMOGLOBIN 11.2 GM/DL (13.0-17.0); LYMPH % 13.3 % (9.0-44.0); LYMPHOCYTE # 1.1 TH/MM3 (1.0-4.8); MEAN CELL VOLUME 89.4 FL (80.0-100.0); MEAN CORPUSCULAR HEMOGLOBIN 29.5 PG (27.0-34.0); MEAN PLATELET VOLUME 9.2 FL (7.0-11.0); MONO % 8.9 % (0.0-8.0); MONOCYTE # 0.7 TH/MM3 (0-0.9); NEUT % 73.2 % (16.0-70.0); PLATELET COUNT 149 TH/MM3 (150-450); RED BLOOD COUNT 3.81 MIL/MM3 (4.50-5.90); RED CELL DISTRIBUTION WIDTH 13.7 % (11.6-17.2); WHITE BLOOD COUNT 8.4 TH/MM3 (4.0-11.0)
[2018-03-09 05:16] LABS: ALBUMIN 2.7 GM/DL (3.4-5.0); AST (GOT) 40 U/L (15-37); BICARBONATE 15.8 MEQ/L (21.0-32.0); BLOOD UREA NITROGEN 24 MG/DL (7-18); CALCIUM 8.2 MG/DL (8.5-10.1); CHLORIDE 116 MEQ/L (98-107); GLOMERULAR FILTRATION RATE 72 ML/MIN (>89); GLUCOSE,RANDOM 75 MG/DL (74-106); SODIUM (NA) 144 MEQ/L (136-145)
[2018-03-09 05:20] LABS: ALKALINE PHOSPHATASE 71 U/L (45-117); ALT (GPT) 22 U/L (12-78); TOTAL BILIRUBIN ADULT 0.9 MG/DL (0.2-1.0); TOTAL PROTEIN 5.5 GM/DL (6.4-8.2)
--- NOTE | 2018-03-09 07:29 | PD.ORT.PN ---
Subjective Subjective Remarks Patient stable overnight. Plan is for nonoperative treatment of his cervical spine. Objective Vitals Vital Signs Date Time Temp Pulse Resp B/P (MAP) Pulse Ox O2 Delivery O2 Flow Rate FiO2 03/09/18 06:00 89 03/09/18 04:00 87 03/09/18 04:00 30 03/09/18 04:00 99.1 87 19 139/52 (81) 98 03/09/18 03:59 97 30 03/09/18 02:00 88 03/09/18 00:07 95 30 03/09/18 00:00 30 03/09/18 00:00 99.0 86 18 130/48 (75) 98 03/09/18 00:00 86 03/08/18 22:00 85 03/08/18 20:07 96 30 03/08/18 20:00 98 03/08/18 20:00 30 03/08/18 20:00 100.9 98 18 130/53 (78) 98 03/08/18 19:00 96 Mechanical Ventilator 30 03/08/18 18:00 106 03/08/18 16:00 30 03/08/18 16:00 101.1 110 18 127/60 (82) 93 03/08/18 16:00 110 03/08/18 15:43 94 30 03/08/18 14:00 105 03/08/18 12:32 100 100 03/08/18 12:00 99 30 03/08/18 12:00 30 03/08/18 12:00 100.6 105 18 125/50 (75) 93 03/08/18 12:00 105 03/08/18 10:00 100 03/08/18 08:00 101.5 99 18 134/50 (78) 95 03/08/18 08:00 99 03/08/18 08:00 30 03/08/18 07:58 95 30 I/O 03/08/18 03/08/18 03/08/18 03/09/18 03/09/18 03/09/18 07:00 15:00 23:00 07:00 15:00 23:00 Intake Total 1205.4 ml 355 ml 1325 ml 1000 ml Output Total 300 ml 500 ml 475 ml Balance 905.4 ml 355 ml 825 ml 525 ml Intake IV Total 1205.4 ml 355 ml 1205 ml 1000 ml Other 120 ml Output Urine Total 300 ml 500 ml 475 ml # Bowel Movements 0 Result Diagram: 03/09/1841903/09/18419 Imaging Last 24 hours Impressions Chest X-Ray 03/08/18599 Signed Impressions: CONCLUSION: Slight worsening pulmonary edema. Head CTA 03/07/18799 Signed Impressions: CONCLUSION: 1. Intracranial circulation appears widely patent. No large or central vessel occlusion identified. Head CT 03/07/18799 Signed Impressions: CONCLUSION: 1. There is increasing subarachnoid hemorrhage bilaterally. 2. There is mild increase in hemorrhage in the basilar cisterns and subarachno id hemorrhage along the left tentorium. Objective Remarks remains intubated and sedated. C-collar is in place Right lower extremity: Splint remains in place over the ankle. Brisk cap refill to toes. Assessment & Plan Assessment and Plan 82-year-old gentleman who presents as polytrauma with head bleed, cervical spine injury, right femoral neck fracture and possible small capsular avulsion off anterior talus 1. Patient will require right hip hemiarthroplasty for his right femoral neck fracture. Plan will be for likely surgery tomorrow with my partner, Dr. Beatty. Patient will need to have his head of bed flat and in the lateral position. C collar can be maintained during this positioning however HOB won't be elevated. 2. No plan for surgery for right ankle injury. This appears to be capsular avulsion off the anterior aspect of the talus. Ml Baker MD March 09, 2018 07:29
[2018-03-09] MEDS: CHLORHEXIDINE 0.12% (ORAL KIT) 15 ML CUP MT SCH ×2 (08:15→20:47)
--- NOTE | 2018-03-09 08:48 | HHI.NSPN ---
(Wes Curry) History Chief Complaint: Intubated and sedated with extensive traumatic SAH. (Wes Curry) Interval History Elderly gentleman who appears to be in his 80s brought in as a trauma alert to [facility] after a fall while walking his dog with questionable loss of consciousness. Patient was confused but responding on arrival although lethargic. He was intubated and further trauma workup included CT scan of the head which reveals traumatic subarachnoid hemorrhage overlying the convexities as well as frontoparietal interhemispheric small subdural hemorrhage and subarachnoid hemorrhage in the ambient cisterns bilaterally. There is also small left intraventricular hemorrhage but no hydrocephalus. There is generalized cerebral atrophy and no mass-effect or midline shift. CT of cervical spine shows widening of the C3-4 interspace with the advanced C4-5 degenerative disc disease and possible autofusion along with extensive degenerative changes. He also has a right femoral fracture. Currently is intubated and sedated and no family member is at the bedside or any previous medical history known. 03/07/18: Pt intubated and sedated on Diprivan. Not opening eyes. Not following commands. Currently fighting vent. 03/08/18: Pt intubated and sedated on Diprivan and Fentanyl drips. He gets agitated when sedation held. He is not following commands. Pupils 2mm NR bilaterally. 03/09/18: Pt intubated and sedated on Diprivan and Fentanyl drips. Diprivan was held for exam. He is not opening eyes. Pupils 2mm bilaterally NR bilaterally. Not following commands. He is intubated. (Wes Curry) System Review Comments Not able to obtain given clinical condition. (Wes Curry) Exam Results Vital Signs Date Time Temp Pulse Resp B/P (MAP) Pulse Ox O2 Delivery O2 Flow Rate FiO2 03/09/18 08:14 96 30 03/09/18 06:00 89 03/09/18 04:00 99.1 19 139/52 (81) 03/08/18 19:00 Mechanical Ventilator 03/06/18 20:18 4.00 Intake and Output 03/09/18 03/09/18 03/10/18 08:00 16:00 00:00 Intake Total 1000 ml Output Total 475 ml Balance 525 ml (Wes Curry) Physical Examination General: Pt sedated and intubated on Diprivan and Fentanyl drips. Eyes: Pupils equal 2mm bilaterally and reactive bilaterally. Sclera anicteric. Resp: CTA bilaterally. Intubated. Volume control. Rate 18. Peep 5. FiO2 30 %. Heart: NSR no murmurs Abd: Soft positive bs Skin: No cyanosis or erythema. Right LE splinted and bandaged. SCD to LLE. Muscle: Moves all 4 extremities spontaneously but not following commands for muscle testing. Cervical collar intact. Withdraws UEs to pain. Neuro: Pt sedated on Diprivan and Fentanyl drips. Not opening eyes or following commands. Pupils 2mm bilaterally NR bilaterally. (Wes Curry) Lab, Micro, Other Results Last Impressions Chest X-Ray 03/09/18 06 Signed Impressions: CONCLUSION: No appreciable change. Cervical Spine MRI 03/08/18 0000 Signed Impressions: CONCLUSION: 1. Spinal stenosis as above worse from C5 to C7. 2. There is no increased signal in the cord 3. Controlled flexion-extension films may be of benefit to evaluate C4-C5 list hesis. Head CTA 03/07/18 08 Signed Impressions: CONCLUSION: 1. Intracranial circulation appears widely patent. No large or central vessel occlusion identified. Head CT 03/07/18799 Signed Impressions: CONCLUSION: 1. There is increasing subarachnoid hemorrhage bilaterally. 2. There is mild increase in hemorrhage in the basilar cisterns and subarachno id hemorrhage along the left tentorium. Neck CTA 03/07/18 0000 Signed Impressions: CONCLUSION: 1. Left carotid: Atherosclerotic plaquing at the bifurcation with both hard an d soft plaque present. This results in stenosis in the origin of the left inter nal carotid estimated to be in the range of 30%. Of note, there is a small ulce ration beneath an area of soft plaque in the origin of the left internal caroti d. 2. Right carotid: Minimal plaquing. No hemodynamically significant stenosis id entified. 3. Incidental note made of mucoperiosteal thickening and air-fluid levels with in the maxillary sinuses. Carotid Artery Ultrasound 03/07/18 0000 Signed Impressions: CONCLUSION: 1. Right Internal Carotid Artery: Findings indicate <50% stenosis. 2. Left Internal Carotid Artery: Findings indicate <50% stenosis. Primary Parameters Additional Parameters Stenosis % ICA PSV (cm/sc) Plaque Estimate % ICA/C CA PSV ratio ICA/CCA EDV (cm/sec) Normal <125 None <2.0 <40 <50% <125 <50% <2.0 <40 50-69% 125-230 >50% 2.0-4.0 40-100 >70% >230 >50% >4.[address] 03/06/181857 Signed Impressions: CONCLUSION: 1. Negative for acute traumatic injury within the thorax. Moderate to severe e mphysema with dependent atelectasis in the lungs. No pneumothorax or effusions. Abdomen/Pelvis CT 03/06/181857 Signed Impressions: CONCLUSION: 1. Right femoral neck fracture is slightly angulated and comminuted. 2. Negative for acute traumatic injury within the abdomen and pelvis. Hepatic and right renal cyst. Pelvis X-Ray 03/06/181845 Signed Impressions: CONCLUSION: Right femoral neck fracture with angular deformity. Maxillofacial CT 03/06/181845 Signed Impressions: CONCLUSION: 1. Bilateral relatively nondisplaced maxillary sinus fractures with fluid and hemorrhage in the maxillary sinuses and a small amount of air outside the left maxillary sinus laterally. Cervical Spine CT 03/06/181845 Signed Impressions: CONCLUSION: 1. Widening of the anterior disc interspace at C3-4 with minimal anterolisthes is. It is unclear if this is an acute or chronic finding. This would be better evaluated with MRI of cervical spine when patient is able. Ankle X-Ray 03/06/181845 Signed Impressions: CONCLUSION: Questionable avulsion fracture anterior to the talus. Laboratory Tests Test 03/09/18 04:20 03/09/18 04:35 White Blood Count 8.4 TH/MM3 Red Blood Count 3.81 MIL/MM3 Hemoglobin 11.2 GM/DL Hematocrit 34.0 % Mean Corpuscular Volume 89.4 FL Mean Corpuscular Hemoglobin 29.5 PG Mean Corpuscular Hemoglobin Concent 33.0 % Red Cell Distribution Width 13.7 % Platelet Count 149 TH/MM3 Mean Platelet Volume 9.2 FL Neutrophils (%) (Auto) 73.2 % Lymphocytes (%) (Auto) 13.3 % Monocytes (%) (Auto) 8.9 % Eosinophils (%) (Auto) 3.9 % Basophils (%) (Auto) 0.7 % Neutrophils # (Auto) 6.1 TH/MM3 Lymphocytes # (Auto) 1.1 TH/MM3 Monocytes # (Auto) 0.7 TH/MM3 Eosinophils # (Auto) 0.3 TH/MM3 Basophils # (Auto) 0.1 TH/MM3 CBC Comment DIFF FINAL Differential Comment Blood Urea Nitrogen 24 MG/DL Creatinine 1.00 MG/DL Random Glucose 75 MG/DL Total Protein 5.5 GM/DL Albumin 2.7 GM/DL Calcium Level 8.2 MG/DL Alkaline Phosphatase 71 U/L Aspartate Amino Transf (AST/SGOT) 40 U/L Alanine Aminotransferase (ALT/SGPT) 22 U/L Total Bilirubin 0.9 MG/DL Sodium Level 144 MEQ/L Potassium Level 4.1 MEQ/L Chloride Level 116 MEQ/L Carbon Dioxide Level 15.8 MEQ/L Anion Gap 12 MEQ/L Estimat Glomerular Filtration Rate 72 ML/MIN Blood Gas Puncture Site ART LINE Blood Gas Patient Temperature 98.6 Blood Gas HCO3 15 mmol/L Blood Gas Base Excess -10.4 mmol/L Blood Gas Oxygen Saturation 91 % Arterial Blood pH 7.32 Arterial Blood Partial Pressure CO2 29 mmHg Arterial Blood Partial Pressure O2 71 mmHg Arterial Blood Oxygen Content 13.9 Vol % Arterial Blood Carboxyhemoglobin 2.1 % Arterial Blood Methemoglobin 1.1 % Blood Gas Hemoglobin 10.9 G/DL Oxygen Delivery Device VENT Blood Gas Ventilator Setting SEE COMMENTS Blood Gas Inspired Oxygen 30 % (Wes Curry) Medical Decision Making Impression and Plan A: 82 y/o M with 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 He has C3-4 interspace widening with the possibility of ligamentous disruption/injury. P: Continue to monitor closely in the surgical intensive care unit. Keep HOB elevated at 30. Cervical collar for possible C3-4 ligamentous/soft tissue injury and cervical stenosis. Continue with seizure prophylaxis with Keppra, Continue with mechanical DVT prophylaxis and gastrointestinal stress ulcer prophylaxis. (Wes Curry) Attending Statement The exam, history, and the medical decision-making described in the above note were completed with the assistance of the mid-level provider. I reviewed and agree with the findings presented. I attest that I had a [id number] encounter with the patient on the same day, and personally performed and documented my assessment and findings in the medical record. He is intubated and sedated when sedation is held his blood pressure increases along with heart rate. He does not open his eyes and pupils are small and equal he does withdraw and localize to pain in upper and lower extremities but not following commands. Orthopedic surgery wants to proceed with ORIF right femur fracture and from my standpoint this can be undertaken as long as his neck is maintained in a collar and the head of bed can be adjusted to whatever level is deemed suitable. Palliative care consulted as patient's has related that he has advanced directives and should consider honoring his directives prior to any further intervention. (Mannie Lowery MD) Wes Curry March 09, 2018 08:48 Mannie Lowery MD March 09, 2018 18:45
[2018-03-09] MEDS: PANTOPRAZOLE SODIUM 40 MG VIAL IVP SCH (09:14)
[2018-03-09] MEDS: levETIRAcetam INJ 500 MG in SODIUM CHLORIDE 0.9% INJ 100 ML IV SCH ×2 (09:14→20:47)
[2018-03-09] MEDS: DOCUSATE SODIUM 100 MG CAP PO SCH (09:14)
[2018-03-09] MEDS: DOCUSATE SODIUM 50 MG/SENNA 8.6 MG TAB PO SCH ×2 (09:14→20:47)
[2018-03-09] MEDS: BACITRACIN TOP OINT 15 GM TUBE TOP SCH ×2 (09:14→20:48)
[2018-03-09] MEDS ORDERED: SODIUM CHLORID 0.9% 500 ML INJ 500 ML IV ONE (10:00)
[2018-03-09] MEDS: PROPOFOL 1000 MG/100 ML INJ 100 ML IV PRN ×2 (10:22→20:48)
--- NOTE | 2018-03-09 11:49 | PD.CONS ---
Consult Service Palliative Care . Consult Requested By VARUN Vann . Primary Care Physician Unknown . Reason for Consultation a. To assist with evaluation and management of symptoms including: pain; dyspnea; encephalopathy b. To assist medical decision maker(s) with: better understanding of current medical conditions; weighing benefits/burdens of medical treatment options; making medical treatment decisions. . HPI History of Present Illness History is limited. Patient is non-verbal. I have made several attempts to contact the patient's spouse today and have been unable to connect. Hx is taken from the medical record. Mr. Harrison is an 82 y/o male with a known history of COPD; BPH; CHF (2011) ; hypertension; hyperlpidemia; and GERD who suffered a fall on 03/06/18 while walking his dog. There were bystanders who said he landed on his face. There was no reported loss of consciouness, but the patient was quite confused. he complained of right lower extremity pain. Family reported that the patient had suffered a second fall, without known injury, about a week prior. The patient was a "trauma alert" in the ED. Trauma work-up ultimately revealed the following injuries: * Subcranial hemorrhage bilaterally but especially around the posterior brainstem. Probable trace subdural hemorrhage in the interhemispheric region. Also a small amount of intraventricular hemorrhage. No mass-effect or shift. * CT of the cervical spine showed widening of the anterior disc interspace at C3 -C4 with minimal anterolisthesis. Unclear if this was an acute or chronic condition. * Maxillofacial CT showed bilateral relatively nondisplaced maxillary sinus fractures with fluid and hemorrhage in the maxillary sinuses and a small amount of air outside the left maxillary sinus laterally * Right femoral neck fracture (comminuted) with angular deformity * CT of the chest was negative for acute traumatic injury. Moderate to severe emphysema was noted. No pneumothorax or effusions. * Right forehead laceration. Additional testing revealed the following: * CT angiography of the head showed widely patent intracranial circulation. * Carotid artery ultrasound revealed less than 50% stenosis of both the right internal carotid and left internal carotid arteries. The patient was intubated in the ED and placed on mechanical ventilation. Neurosurgery was consulted shortly after emergency room evaluation. Dr. Lowery has opted for a non-operative approach at this time to both the intracranial bleed and the cervical spine issues. The patient was placed in a cervical collar. Orthopedic surgery has been consulted and is planning to go forward with repair of the right hip fracture. Maxillo-facial surgery repaired the right forehead laceration but felt no surgical intervention was necessary for the maxillary sinus fracture. The patient is currently sedated, intubated, mechanically ventilated in an SICU room. He is unresponsive at time of my visit. Neurosurgical note from earlier today indicates he moves all 4 extremities spontaneously but is unable to follow commands and does not open eyes to voice/exam or command. Nurse reports he withdraws to noxious stimuli. Patient has been bolused with fluids due to marginal low urine output. Hg has been stable -- patient has not required transfusion. Sedation currently includes propofol and fentanyl (currently running at 50 mcg/ hr). Bedside nurse reports he has not appeared uncomfortable during sedation vacations. . . Function/Cognitive Trajectory The medical record indicates the patient had fallen previously but was able to perform all of his ADLs. . Review of Systems ROS Limitations: Clinical Condition (Patient is non-verbal. Family is unavailable . ROS taken as best as possible from available medical record.) Ears, nose, mouth, throat: DENIES: Hearing loss Respiratory: COMPLAINS OF: Shortness of breath Cardiovascular: COMPLAINS OF: Dyspnea on Exertion, DENIES: Chest pain Past Family Social History Coded Allergies: No Allergy Information Available (Unverified , 03/06/18) Past Medical History COPD CHF (2011) BPH (based on meds) Hypertension Hyperlipidemia . Past Surgical History Knee surgery . Reported Medications Pre-hospital medications at home included: * Albuterol metered-dose inhaler; 2 puffs every 6 hours as needed * Tamsulosin 0.4 mg capsule; one capsule at bedtime * Simvastatin 20 mg tablet; one by mouth daily * Sildenafil 100 mg tablet; one daily as needed * Amlodipine 10 mg tablet; one by mouth daily * Enalapril 20 mg tablet; one by mouth twice daily * Aspirin 81 mg chewable tablet; one by mouth daily * Pantoprazole 40 mg tablet; one by mouth before breakfast . Current Medications Medications (Trade) Dose Ordered Sig/Brittani Route Start Time Stop Time Status Last Admin (NS Flush) 2 ml UNSCH PRN IV FLUSH 03/06/18 19:45 (Vasotec Inj) 1.25 mg Q8H PRN IV PUSH 03/06/18 19:45 (Zofran Odt) 4 mg Q6H PRN PO 03/06/18 20:30 ([facility] Nursing Information) 1 Q361D XX 03/06/18 19:45 03/06/18 19:45 (Chlorhexidine 2% Cloth) 3 pack Taper DAILY@04 TOP 03/07/18 04:00 03/03/19 03:59 03/09/18 03:54 (Chlorhexidine 2% Cloth) 3 pack UNSCH PRN TOP 03/06/18 19:45 Propofol 100 ml @ 0 mls/hr TITRATE PRN IV 03/06/18 20:00 03/09/18 10:22 Levetriacetam 500 mg/Sodium Chloride 105 ml @ 420 mls/hr Q12HR IV 03/06/18 21:00 03/13/18 20:59 03/09/18 09:14 (Protonix Inj) 40 mg DAILY IVP 03/07/18 09:00 03/09/18 09:14 (Baciguent Oint) 1 applic BID TOP 03/06/18 21:00 03/09/18 09:14 (Katharine-Colace) 1 tab BID PO 03/06/18 21:00 03/09/18 09:14 (Milk Of Magnesia Liq) 30 ml Q12H PRN PO 03/06/18 20:30 (Senokot) 17.2 mg Q12H PRN PO 03/06/18 20:30 (Dulcolax Supp) 10 mg DAILY PRN RECTAL 03/06/18 20:30 (Lactulose Liq) 30 ml DAILY PRN PO 03/06/18 20:30 Fentanyl Citrate 250 ml @ 5 mls/hr TITRATE PRN IV 03/06/18 23:00 03/08/18 10:00 Potassium Chloride 100 ml @ 50 mls/hr Q2H PRN IV 03/07/18 09:15 Potassium Chloride 100 ml @ 50 mls/hr Q2H PRN IV 03/07/18 09:15 (K-Lyte Cl Eff) 50 meq UNSCH PRN PO 03/07/18 09:15 Potassium Chloride 100 ml @ 25 mls/hr UNSCH PRN IV 03/07/18 09:15 Potassium Chloride 100 ml @ 50 mls/hr Q2H PRN IV 03/07/18 09:15 Magnesium Sulfate 4 gm/Sodium Chloride 100 ml @ 50 mls/hr UNSCH PRN IV 03/07/18 09:15 (Mag-Ox) 800 mg UNSCH PRN PO 03/07/18 09:15 Magnesium Sulfate 2 gm/Sodium Chloride 100 ml @ 50 mls/hr UNSCH PRN IV 03/07/18 09:15 (K-Phos) 2,000 mg Q4H PRN PO 03/07/18 09:15 Sodium Phosphate 30 mmol/Sodium Chloride 250 ml @ 42 mls/hr UNSCH PRN IV 03/07/18 09:15 (K-Phos) 2,000 mg UNSCH PRN PO/TUBE 03/07/18 09:15 Potassium Phosphate 30 mmol/ Sodium Chloride 260 ml @ 42 mls/hr UNSCH PRN IV 03/07/18 09:15 (Peridex 0.12% Liq) 15 ml BID@08,20 MT 03/07/18 20:00 03/09/18 08:15 (Duoneb Neb) 1 ampule Q6HR NEB NEB 03/07/18 10:00 03/09/18 08:07 (Duoneb Neb) 1 ampule Q2HR NEB PRN NEB 03/07/18 09:15 Sodium Chloride 1,000 ml @ 100 mls/hr Q10H IV 03/07/18 10:15 03/09/18 02:35 (Tylenol) 650 mg Q6H PRN PO 03/07/18 10:15 03/08/18 18:00 . Family History Unable to obtain . Substance Use Tobacco: Unknown -- await conference with spouse Alcohol: Unknown -- await conference with spouse Prescription med abuse: Unknown -- await conference with spouse Illicits: Unknown -- await conference with spouse . Psychosocial History Complete psychosocial history pending conference with spouse. High school education Retired . Spiritual/Cultural Factors Unknown -- await conference with spouse . Living Will: Copy in medical record Health Care Surrogate: Copy in medical record Durable Power of Administrative Coordinator: Never completed Date completed: Living will and health care surrogate completed on 12/30/2011 . Health Care Surrogate(s): Patient has designated Mine Kirk (spouse) as his health care surrogate . Documented care wishes: Living will has standard language and indicates patient would NOT want life prolonging measures should he be found to have a terminal condition. He would NOT want artificial nutrition/hydration if he were terminal. . Today's verbally stated goals: Patient is unable to verbally state his health care goals preferences. . Family/friends goals: Unknown -- await conference with spouse . Ethical and Legal Issues Patient is incapacitated to make his own health care decisions at this time. It is unclear if he will be recover the ability to do so. is designated health care surrogate. . . Physical Exam Vital Signs Date Time Temp Pulse Resp B/P (MAP) Pulse Ox O2 Delivery O2 Flow Rate FiO2 03/09/18 10:00 95 03/09/18 08:14 96 30 03/09/18 08:00 84 03/09/18 08:00 30 03/09/18 08:00 99.3 84 18 126/108 (114) 96 130/73 (92) 03/09/18 07:00 96 Mechanical Ventilator 30 03/09/18 06:00 89 03/09/18 04:00 87 03/09/18 04:00 30 03/09/18 04:00 99.1 87 19 139/52 (81) 98 03/09/18 03:59 97 30 03/09/18 02:00 88 03/09/18 00:07 95 30 03/09/18 00:00 30 03/09/18 00:00 99.0 86 18 130/48 (75) 98 03/09/18 00:00 86 03/08/18 22:00 85 03/08/18 20:07 96 30 03/08/18 20:00 98 03/08/18 20:00 30 03/08/18 20:00 100.9 98 18 130/53 (78) 98 03/08/18 19:00 96 Mechanical Ventilator 30 03/08/18 18:00 106 03/08/18 16:00 30 03/08/18 16:00 101.1 110 18 127/60 (82) 93 03/08/18 16:00 110 03/08/18 15:43 94 30 03/08/18 14:00 105 03/08/18 12:32 100 100 03/08/18 12:00 99 30 03/08/18 12:00 30 03/08/18 12:00 100.6 105 18 125/50 (75) 93 03/08/18 12:00 105 . 03/09/18 03/10/18 18:59 06:59 Intake Total 205 ml Balance 205 ml Intake IV Total 205 ml . Exam CONSTITUTIONAL/GENERAL: This is an adequately nourished patient, intubated, mechanically ventilated, sedated, in an SICU bed. TUBES/LINES/DRAINS: orotracheal tube; orogastric tube; right lower extremity splint; SCD on LLE; wrist restraints; timmons catheter; right radial arterial line ; peripheral IVs; cervical collar SKIN: No jaundice, rashes. Repaired laceration right forehead. Ecchymosis/ swelling right eyelid. Skin temperature appropriate. Not diaphoretic. HEAD: Atraumatic. Normocephalic. Repaired laceration right forehead. Ecchymosis /swelling right eyelid. EYES: Pupils constricted, equal and round and ? reactive.. Unable to assess EOMs. No scleral icterus. No injection or drainage. Fundi not examined. ENT: Unable to assess hearing. Nose without bleeding or purulent drainage. Throat without visible erythema, exudates, masses, or lesions. NECK: Cervical collar in place. Trachea midline. No palpable thyroid enlargement or nodularity though difficult to assess beneath cervical collar. CARDIOVASCULAR: Irregular rhythm without murmurs, gallops, or rubs. Unable to assess JVD with cervical collar in place. RESPIRATORY/CHEST: Symmetric, unlabored respirations. Breath sounds equal bilaterally but diminished bilaterally. No wheezes or crackles heard. GASTROINTESTINAL: Abdomen soft, non-tender, nondistended. No hepato-splenomegaly , or palpable masses. No guarding. Bowel sounds present. GENITOURINARY: Without palpable bladder distension. No penile/scrotal edema. Timmons catheter in place. MUSCULOSKELETAL: RLE in splint. Extremities otherwise without clubbing, cyanosis, or edema. No mottling. LYMPHATICS: No palpable supraclavicular adenopathy. NEUROLOGICAL: Sedated. Unable to follow commands. Occasional small spontaneious movement of LEs seen. PSYCHIATRIC: Unable to assess due to level of responsiveness. . Diagnostic Tests Laboratory Laboratory Tests Test 03/06/18 18:51 03/06/18 20:30 03/06/18 20:48 03/07/18 03:30 White Blood Count 7.6 TH/MM3 (4.0-11.0) Red Blood Count 4.77 MIL/MM3 (4.50-5.90) Hemoglobin 13.9 GM/DL (13.0-17.0) Bedside Hemoglobin 13.9 G/DL (13.0-17.0) Hematocrit 42.0 % (39.0-51.0) Bedside Hematocrit 41.0 % (39.0-51.0) Mean Corpuscular Volume 88.1 FL (80.0-100.0) Mean Corpuscular Hemoglobin 29.2 PG (27.0-34.0) Mean Corpuscular Hemoglobin Concent 33.1 % (32.0-36.0) Red Cell Distribution Width 14.1 % (11.6-17.2) Platelet Count 247 TH/MM3 (150-450) Mean Platelet Volume 8.5 FL (7.0-11.0) Neutrophils (%) (Auto) 57.9 % (16.0-70.0) Lymphocytes (%) (Auto) 28.8 % (9.0-44.0) Monocytes (%) (Auto) 6.9 % (0.0-8.0) Eosinophils (%) (Auto) 3.3 % (0.0-4.0) Basophils (%) (Auto) 3.1 % (0.0-2.0) Neutrophils # (Auto) 4.4 TH/MM3 (1.8-7.7) Lymphocytes # (Auto) 2.2 TH/MM3 (1.0-4.8) Monocytes # (Auto) 0.5 TH/MM3 (0-0.9) Eosinophils # (Auto) 0.3 TH/MM3 (0-0.4) Basophils # (Auto) 0.2 TH/MM3 (0-0.2) CBC Comment DIFF FINAL Differential Comment Prothrombin Time 11.2 SEC (9.8-11.6) Prothromb Time International Ratio 1.1 RATIO Activated Partial Thromboplast Time 25.2 SEC (24.3-30.1) Bedside Sodium 144 MMOL/L (137-144) Bedside Potassium 4.4 MMOL/L (3.6-5.0) Bedside Chloride 112 MMOL/L (102-111) Bedside Blood Urea Nitrogen 23 MG/DL (5-21) Bedside Creatinine 1.4 MG/DL (0.6-1.3) Bedside Glucose 92 MG/DL (68-110) Nasal Screen MRSA (PCR) MRSA NOT DETECTED (NOT Blood Gas Puncture Site LT BRACHIAL ART LINE Blood Gas Patient Temperature 98.6 98.6 Blood Gas HCO3 21 mmol/L (22-26) 19 mmol/L (22-26) Blood Gas Base Excess -5.0 mmol/L (-2-2) -5.4 mmol/L (-2-2) Blood Gas Oxygen Saturation 94 % (90-100) 96 % (90-100) Arterial Blood pH 7.28 (7.380-7.420) 7.35 (7.380-7.420) Arterial Blood Partial Pressure CO2 46 mmHg (38-42) 36 mmHg (38-42) Arterial Blood Partial Pressure O2 95 mmHg (61-120) 121 mmHg (61-120) Arterial Blood Oxygen Content 18.2 Vol % (12.0-20.0) 17.1 Vol % (12.0-20.0) Arterial Blood Carboxyhemoglobin 1.2 % (0-4) 1.4 % (0-4) Arterial Blood Methemoglobin 1.0 % (0-2) 0.9 % (0-2) Blood Gas Hemoglobin 13.8 G/DL (12.0-16.0) 12.5 G/DL (12.0-16.0) Oxygen Delivery Device VENTILATOR VENTILATOR Blood Gas Ventilator Setting AC//500/PEEP 5 AC//550/PEEP 5 Blood Gas Inspired Oxygen 50 % 50 % Test 03/07/18 04:45 03/08/18 04:09 03/08/18 04:45 03/09/18 04:20 White Blood Count 9.5 TH/MM3 (4.0-11.0) 9.9 TH/MM3 (4.0-11.0) 8.4 TH/MM3 (4.0-11.0) Red Blood Count 4.28 MIL/MM3 (4.50-5.90) 3.97 MIL/MM3 (4.50-5.90) 3.81 MIL/MM3 (4.50-5.90) Hemoglobin 12.7 GM/DL (13.0-17.0) 11.7 GM/DL (13.0-17.0) 11.2 GM/DL (13.0-17.0) Hematocrit 38.1 % (39.0-51.0) 35.3 % (39.0-51.0) 34.0 % (39.0-51.0) Mean Corpuscular Volume 88.9 FL (80.0-100.0) 88.9 FL (80.0-100.0) 89.4 FL (80.0-100.0) Mean Corpuscular Hemoglobin 29.6 PG (27.0-34.0) 29.4 PG (27.0-34.0) 29.5 PG (27.0-34.0) Mean Corpuscular Hemoglobin Concent 33.4 % (32.0-36.0) 33.1 % (32.0-36.0) 33.0 % (32.0-36.0) Red Cell Distribution Width 14.0 % (11.6-17.2) 14.0 % (11.6-17.2) 13.7 % (11.6-17.2) Platelet Count 203 TH/MM3 (150-450) 173 TH/MM3 (150-450) 149 TH/MM3 (150-450) Mean Platelet Volume 8.7 FL (7.0-11.0) 8.9 FL (7.0-11.0) 9.2 FL (7.0-11.0) Neutrophils (%) (Auto) 83.1 % (16.0-70.0) 78.4 % (16.0-70.0) 73.2 % (16.0-70.0) Lymphocytes (%) (Auto) 9.6 % (9.0-44.0) 10.2 % (9.0-44.0) 13.3 % (9.0-44.0) Monocytes (%) (Auto) 6.7 % (0.0-8.0) 7.4 % (0.0-8.0) 8.9 % (0.0-8.0) Eosinophils (%) (Auto) 0.1 % (0.0-4.0) 2.9 % (0.0-4.0) 3.9 % (0.0-4.0) Basophils (%) (Auto) 0.5 % (0.0-2.0) 1.1 % (0.0-2.0) 0.7 % (0.0-2.0) Neutrophils # (Auto) 7.9 TH/MM3 (1.8-7.7) 7.8 TH/MM3 (1.8-7.7) 6.1 TH/MM3 (1.8-7.7) Lymphocytes # (Auto) 0.9 TH/MM3 (1.0-4.8) 1.0 TH/MM3 (1.0-4.8) 1.1 TH/MM3 (1.0-4.8) Monocytes # (Auto) 0.6 TH/MM3 (0-0.9) 0.7 TH/MM3 (0-0.9) 0.7 TH/MM3 (0-0.9) Eosinophils # (Auto) 0.0 TH/MM3 (0-0.4) 0.3 TH/MM3 (0-0.4) 0.3 TH/MM3 (0-0.4) Basophils # (Auto) 0.1 TH/MM3 (0-0.2) 0.1 TH/MM3 (0-0.2) 0.1 TH/MM3 (0-0.2) CBC Comment DIFF FINAL DIFF FINAL DIFF FINAL Differential Comment Prothrombin Time 11.4 SEC (9.8-11.6) Prothromb Time International Ratio 1.1 RATIO Blood Urea Nitrogen 19 MG/DL (7-18) 20 MG/DL (7-18) 24 MG/DL (7-18) Creatinine 1.15 MG/DL (0.60-1.30) 1.06 MG/DL (0.60-1.30) 1.00 MG/DL (0.60-1.30) Random Glucose 97 MG/DL (74-106) 64 MG/DL (74-106) 75 MG/DL (74-106) Calcium Level 8.1 MG/DL (8.5-10.1) 7.8 MG/DL (8.5-10.1) 8.2 MG/DL (8.5-10.1) Magnesium Level 1.9 MG/DL (1.5-2.5) Sodium Level 145 MEQ/L (136-145) 144 MEQ/L (136-145) 144 MEQ/L (136-145) Potassium Level 4.2 MEQ/L (3.5-5.1) 3.9 MEQ/L (3.5-5.1) 4.1 MEQ/L (3.5-5.1) Chloride Level 114 MEQ/L (98-107) 114 MEQ/L (98-107) 116 MEQ/L (98-107) Carbon Dioxide Level 21.7 MEQ/L (21.0-32.0) 18.3 MEQ/L (21.0-32.0) 15.8 MEQ/L (21.0-32.0) Anion Gap 9 MEQ/L (5-15) 12 MEQ/L (5-15) 12 MEQ/L (5-15) Estimat Glomerular Filtration Rate 55 ML/MIN (>89) 67 ML/MIN (>89) 72 ML/MIN (>89) Phosphorus Level 3.6 MG/DL (2.5-4.9) Blood Gas Puncture Site SHERIF Blood Gas Patient Temperature 98.6 Blood Gas HCO3 16 mmol/L (22-26) Blood Gas Base Excess -9.0 mmol/L (-2-2) Blood Gas Oxygen Saturation 91 % (90-100) Arterial Blood pH 7.30 (7.380-7.420) Arterial Blood Partial Pressure CO2 34 mmHg (38-42) Arterial Blood Partial Pressure O2 72 mmHg (61-120) Arterial Blood Oxygen Content 14.5 Vol % (12.0-20.0) Arterial Blood Carboxyhemoglobin 2.0 % (0-4) Arterial Blood Methemoglobin 0.9 % (0-2) Blood Gas Hemoglobin 11.3 G/DL (12.0-16.0) Oxygen Delivery Device VENTILATOR Blood Gas Ventilator Setting AC/18/550/PEEP 5 Blood Gas Inspired Oxygen 30 % Total Protein 5.3 GM/DL (6.4-8.2) 5.5 GM/DL (6.4-8.2) Albumin 2.6 GM/DL (3.4-5.0) 2.7 GM/DL (3.4-5.0) Alkaline Phosphatase 76 U/L (45-117) 71 U/L (45-117) Aspartate Amino Transf (AST/SGOT) 42 U/L (15-37) 40 U/L (15-37) Alanine Aminotransferase (ALT/SGPT) 21 U/L (12-78) 22 U/L (12-78) Total Bilirubin 1.1 MG/DL (0.2-1.0) 0.9 MG/DL (0.2-1.0) Test 03/09/18 04:35 Blood Gas Puncture Site ART LINE Blood Gas Patient Temperature 98.6 Blood Gas HCO3 15 mmol/L (22-26) Blood Gas Base Excess -10.4 mmol/L (-2-2) Blood Gas Oxygen Saturation 91 % (90-100) Arterial Blood pH 7.32 (7.380-7.420) Arterial Blood Partial Pressure CO2 29 mmHg (38-42) Arterial Blood Partial Pressure O2 71 mmHg (61-120) Arterial Blood Oxygen Content 13.9 Vol % (12.0-20.0) Arterial Blood Carboxyhemoglobin 2.1 % (0-4) Arterial Blood Methemoglobin 1.1 % (0-2) Blood Gas Hemoglobin 10.9 G/DL (12.0-16.0) Oxygen Delivery Device VENT Blood Gas Ventilator Setting SEE COMMENTS Blood Gas Inspired Oxygen 30 % . Result Diagram: 03/09/18 0420 03/09/18 0420 Imaging Last Impressions Chest X-Ray 03/09/18 06 Signed Impressions: CONCLUSION: No appreciable change. Cervical Spine MRI 03/08/18 0000 Signed Impressions: CONCLUSION: 1. Spinal stenosis as above worse from C5 to C7. 2. There is no increased signal in the cord 3. Controlled flexion-extension films may be of benefit to evaluate C4-C5 list hesis. Head CTA 03/07/18 08 Signed Impressions: CONCLUSION: 1. Intracranial circulation appears widely patent. No large or central vessel occlusion identified. Head CT 03/07/18 08 Signed Impressions: CONCLUSION: 1. There is increasing subarachnoid hemorrhage bilaterally. 2. There is mild increase in hemorrhage in the basilar cisterns and subarachno id hemorrhage along the left tentorium. Neck CTA 03/07/18 0000 Signed Impressions: CONCLUSION: 1. Left carotid: Atherosclerotic plaquing at the bifurcation with both hard an d soft plaque present. This results in stenosis in the origin of the left inter nal carotid estimated to be in the range of 30%. Of note, there is a small ulce ration beneath an area of soft plaque in the origin of the left internal caroti d. 2. Right carotid: Minimal plaquing. No hemodynamically significant stenosis id entified. 3. Incidental note made of mucoperiosteal thickening and air-fluid levels with in the maxillary sinuses. Carotid Artery Ultrasound 5/29/18 0000 Signed Impressions: CONCLUSION: 1. Right Internal Carotid Artery: Findings indicate <50% stenosis. 2. Left Internal Carotid Artery: Findings indicate <50% stenosis. Primary Parameters Additional Parameters Stenosis % ICA PSV (cm/sc) Plaque Estimate % ICA/C CA PSV ratio ICA/CCA EDV (cm/sec) Normal <125 None <2.0 <40 <50% <125 <50% <2.0 <40 50-69% 125-230 >50% 2.0-4.0 40-100 >70% >230 >50% >4.[address] 03/06/181857 Signed Impressions: CONCLUSION: 1. Negative for acute traumatic injury within the thorax. Moderate to severe e mphysema with dependent atelectasis in the lungs. No pneumothorax or effusions. Abdomen/Pelvis CT 03/06/181857 Signed Impressions: CONCLUSION: 1. Right femoral neck fracture is slightly angulated and comminuted. 2. Negative for acute traumatic injury within the abdomen and pelvis. Hepatic and right renal cyst. Pelvis X-Ray 03/06/181845 Signed Impressions: CONCLUSION: Right femoral neck fracture with angular deformity. Maxillofacial CT 03/06/181845 Signed Impressions: CONCLUSION: 1. Bilateral relatively nondisplaced maxillary sinus fractures with fluid and hemorrhage in the maxillary sinuses and a small amount of air outside the left maxillary sinus laterally. Cervical Spine CT 03/06/181845 Signed Impressions: CONCLUSION: 1. Widening of the anterior disc interspace at C3-4 with minimal anterolisthes is. It is unclear if this is an acute or chronic finding. This would be better evaluated with MRI of cervical spine when patient is able. Ankle X-Ray 03/06/181845 Signed Impressions: CONCLUSION: Questionable avulsion fracture anterior to the talus. . Procedures * Intubation/mechanical ventilation * Right radial arterial line placement . Patient/Family Conference Present at Family Conference: Unable to contact spouse today to arrange for a telephone or in-person conference. . Issues Discussed: * Palliative care role, purpose, approach * Additional medical, psychosocial, and spiritual history * Patients general health, functional status, and cognitive changes in the months leading up to the current hospitalization * Patient/family understanding of the current medical problems * Patient/family understanding of prognosis * Patients goals of care as best understood from advance directives and/or conversations and/or values * Current medical treatment options and benefits/burdens of those options * Likely scenarios comparing ongoing aggressive care with a transition to comfort measures only * Questions answered to the best of my ability * Palliative care contact information provided Assessment and Plan Disease Oriented Problem List: (1) Traumatic brain injury (2) Intracranial bleed (3) Spinal stenosis in cervical region (4) Maxillary sinus fracture (5) Closed right hip fracture (6) COPD (chronic obstructive pulmonary disease) (7) Hypertension (8) BPH (benign prostatic hyperplasia) (9) CHF (congestive heart failure) Symptom Scale: (1) Pain 0-10 Scale: Unable to quantify Comment: Unknown if the patient had pre-existing pain syndromes prior to his recent trauma. Possible causes of current discomfort would include his multiple traumatic injuries; prolonged bedbound status; intubations; vascular access catheters; urinary catheter; restraints. . (2) Dyspnea 0-10 Scale: Unable to quantify Comment: Patient with underlying COPD. Would use metered-dose inhaler at home. Now on vent primarily for traumatic brain injury. No evidence of pneumonia so far. . (3) Encephalopathy 0-10 Scale: Unable to quantify Comment: Current encephalopathy primarily due to the traumatic brain injury and resultant intracranial bleed. Not yet awakening during sedation vacations. Pre-trauma cognitive status presumed to be good. . Pertinent Non-Medical Issues Psychosocial: Patient is . Additional psychosocial history awaits meeting with spouse. Spiritual: Importance of mosque and spirituality unknown at this time. Unknown if patient belongs to a local robbie group. Legal: Patient is completed a living will and healthcare surrogate designation. Paperwork is on the paper chart. Ethical issues impacting care: Patient is incapacitated currently to make his own healthcare decisions. It is unclear if he will regain capacity to do so. . Important Contacts * Mine Kirk (spouse; health care surrogate) H [phone] C . Prognosis Prognosis is unclear at this time. The patient's pre-trauma health status is still uncertain. It seems there were falls before this 1 and because of these falls is unknown. The single biggest determinant of the patient's recovery is going to be his neurologic status and cognitive recovery following the traumatic brain injury. The hip fracture can be surgically repaired but if cognitive status interferes with his ability to participate in physical therapy or if ongoing medical problems prevent him from early mobility, chances of him ambulating again given his age become slim. The significance of the patient's cervical spine disease is also unclear at this time. 82-year-old who become bedbound with a traumatic brain injury and multiple traumas are prone to multiple infections which can result in a prolonged hospitalization and other complications. With underlying COPD, he is quite likely to develop pneumonia while on the vent. A return to independent status will require substantial return of cognitive function and determination to participate in rehabilitation. . Code Status: Full Code Plan == Code Status: FULL CODE. Code status remains full until we would hear otherwise from the health care surrogate. == Health care decision making: Patient is currently incapacitated to make his own healthcare decisions. It is unclear if he will regain capacity to make such decisions. While incapacitated, he has designated his spouse--Mine Kirk --as his healthcare surrogate. ==Goals of medical treatment : patient has a living will which indicates he would not want life prolonging measures should he be found to have a terminal condition. We will hopefully have better understanding of the patient's goals and preferences once I have had a chance to communicate with the patient's spouse. Until such communication takes place, goals of medical treatment should be assumed to be aggressive. == Symptoms: * Pain: Unknown if the patient had pre-existing pain syndromes prior to his recent trauma. Possible causes of current discomfort would include his multiple traumatic injuries; prolonged bedbound status; intubations; vascular access catheters; urinary catheter; restraints. Patient is currently on both propofol and fentanyl. This appears adequate. No further recommendations at this time . * Dyspnea: Patient with underlying COPD. Would use metered-dose inhaler at home. Now on vent primarily for traumatic brain injury. No evidence of pneumonia so far the patient remains at high risk given his underlying lung disease and need for ventilator support. Any sense of air hunger is currently managed by the propofol and fentanyl. No further recommendations at this time. * Encephalopathy: Current encephalopathy primarily due to the traumatic brain injury and resultant intracranial bleed. Not yet awakening during sedation vacations. Pre-trauma cognitive status presumed to be good. The increasing subarachnoid hemorrhage bilaterally on the CT imaging of 03/07/18 is a poor prognostic sign. == To help with consistency of messaging to spouse/family, it would be helpful to have neurosurgery weigh in on neurologic prognosis. In 82 y/o patients with this type of traumatic brain injury, what type of functional status might be expected? Also, might the cervical spine disease have played a role in his falls? Might he require some sort of spinal surgery in the future? == As noted above in my section on prognosis, unless he has reasonably good return of cognitive abilities and unless he improves soon enough to begin mobilization, chances of him ambulating and being independent are poor. I cannot tell if orthopedic surgery discussed this with the spouse and if she knows that the patient may very well not become ambulatory whether he has his hip repaired or not. == I tried several times today to contact the patient's spouse. I want to know about conversations they had at the time he wrote his living will to have a better idea of what he would want or not want at this time. If I can connect with her, I will try and learn more about past history, pre-trauma functional status; goals; pentecostalism/spiritual beliefs; her understanding of prognosis; etc. == Palliative care will continue to follow to assist with symptom management and to further clarify goals of medical treatment as the clinical course evolves. . . Thank you for the opportunity to participate in the care of Mr. Harrison. . Attestation To help prompt me to consider important information that might be impacting today's encounter and assessment, information from prior notes written by myself or my colleagues may have been "brought forward" into today's note. My signature on this note, however, is an attestation that I personally performed the exam, history, and/or decision-making noted today, and, unless otherwise indicated, the interactions with patient, family, and staff as well as the review of records all occurred today. I also attest that the listed assessment and stated plan reflect my best clinical judgment today based on the combination of historical information, prior notes, and today's exam/ interactions. When time spent is documented, it refers only to time spent today by the signer, or if indicated, combined time spent today by collaborating physician/nurse practitioner. . José Luis Gerard MD March 09, 2018 11:49
--- NOTE | 2018-03-09 11:50 | PD.ORT.PN ---
Subjective Subjective Remarks s/p right femoral neck fx intubated/sedated Objective Vitals Vital Signs Date Time Temp Pulse Resp B/P (MAP) Pulse Ox O2 Delivery O2 Flow Rate FiO2 03/09/18 11:17 96 30 03/09/18 10:00 95 03/09/18 08:14 96 30 03/09/18 08:00 84 03/09/18 08:00 30 03/09/18 08:00 99.3 84 18 126/108 (114) 96 130/73 (92) 03/09/18 07:00 96 Mechanical Ventilator 30 03/09/18 06:00 89 03/09/18 04:00 87 03/09/18 04:00 30 03/09/18 04:00 99.1 87 19 139/52 (81) 98 03/09/18 03:59 97 30 03/09/18 02:00 88 03/09/18 00:07 95 30 03/09/18 00:00 30 03/09/18 00:00 99.0 86 18 130/48 (75) 98 03/09/18 00:00 86 03/08/18 22:00 85 03/08/18 20:07 96 30 03/08/18 20:00 98 03/08/18 20:00 30 03/08/18 20:00 100.9 98 18 130/53 (78) 98 03/08/18 19:00 96 Mechanical Ventilator 30 03/08/18 18:00 106 03/08/18 16:00 30 03/08/18 16:00 101.1 110 18 127/60 (82) 93 03/08/18 16:00 110 03/08/18 15:43 94 30 03/08/18 14:00 105 03/08/18 12:32 100 100 03/08/18 12:00 99 30 03/08/18 12:00 30 03/08/18 12:00 100.6 105 18 125/50 (75) 93 03/08/18 12:00 105 I/O 03/08/18 03/08/18 03/08/18 03/09/18 03/09/18 03/09/18 07:00 15:00 23:00 07:00 15:00 23:00 Intake Total 1205.4 ml 355 ml 1325 ml 1000 ml 205 ml Output Total 300 ml 500 ml 475 ml Balance 905.4 ml 355 ml 825 ml 525 ml 205 ml Intake IV Total 1205.4 ml 355 ml 1205 ml 1000 ml 205 ml Other 120 ml Output Urine Total 300 ml 500 ml 475 ml # Bowel Movements 0 Result Diagram: 03/09/1841903/09/18419 Imaging Last 24 hours Impressions Chest X-Ray 03/08/18 06 Signed Impressions: CONCLUSION: Slight worsening pulmonary edema. Head CTA 03/07/18799 Signed Impressions: CONCLUSION: 1. Intracranial circulation appears widely patent. No large or central vessel occlusion identified. Head CT 03/07/18799 Signed Impressions: CONCLUSION: 1. There is increasing subarachnoid hemorrhage bilaterally. 2. There is mild increase in hemorrhage in the basilar cisterns and subarachno id hemorrhage along the left tentorium. Objective Remarks RLE: +short leg splint. present and in good repair. good cap refill to toes Assessment & Plan Assessment and Plan 1) Right Femoral Neck Fx -NPO after MN -sign consents -surgery tomorrow AM with Jaci 2) Right Capsular Avulsion of talus -nonop treatment Mikael Rubin/Hose Tester TWIN March 09, 2018 11:50
--- NOTE | 2018-03-09 12:32 | PD.HHIRBSE ---
Patient History Record/History Review Reason for Referral: The patient is a 82 year old unknown handed male status post traumatic brain injury secondary to a fall on 03/06/2018. The patient was found down while walking his dog. There was questionable LOC but he was confused at the scene. Head CT showed SAH and facial fractures. He is referred for baseline neurobehavioral status examination per trauma protocol to assess cognitive, behavioral and emotional aspects of the injury and to provide treatment recommendations. Past Surgical/Medical History Past Surgery: Yes (knee surgery- year unknown) Major surgery in last 100 days: Unknown Hx Anesthesia Reactions: No Hx Orthopedic Surgery: Yes (knee surgery) Hx of Neuro Prob: No Hx Falls: Yes (previous fall last week ) Hx of Musculoskeletal Pro: No Hx of Cardiovascular Prob: Yes Hypertension (High Blood Press: Yes Hx Clotting Problems: No Hx Chest Pain: No Hx Congestive Heart Failure: Yes (2011) Hx of Respiratory Problem: Yes Hx Chronic Obstructive Pulmona: Yes (december 2011) Hx Dyspnea: Yes Hx of Eye Probl: No Hx of Hearing or Ear Problems: No Hx Dental Problems: Yes (dentures) Hx Psychiatric Problems: No Hx of MDRO: No Hx of MRSA: No Hx of VRE: No Hx of CDIFF: No Hx of Tuberculosis: No Blood Transfusion History Will receive Blood /Blood prod: Yes Medication Active Medications Albumin Human 500 ml @ 500 mls/hr NOW ONCE IV Last administered on 03/08/18at 21:29; Admin Dose 500 MLS/HR; Start 03/08/18 at 21:15; Stop 03/08/18 at 22:14; Status DC Sodium Chloride 500 ml @ 500 mls/hr Q1H ONCE IV Last administered on 03/08/18at 15:00; Admin Dose 500 MLS/HR; Start 03/08/18 at 15:00; Stop 03/08/18 at 18:38; Status DC Sodium Chloride 500 ml @ 500 mls/hr Q1H ONCE IV Last administered on 03/09/18at 10:22; Admin Dose 500 MLS/HR; Start 03/09/18 at 10:00; Stop 03/09/18 at 10:59; Status DC Mental Status Assessment Orientation: unable to asses Self, unable to asses Place, unable to asses Time , unable to asses Situation Observation The patient is intubated and sedated. Adjustment/Coping Assessment Adjustment/Coping: Not Assessed: Depression, Anxiety, Pain, Apathy, Awareness, Insight Observation The patient remains intubated and sedated. LTG Status: Deferred STG Status: Deferred Team Members: Neuropsychologist Behavior Assessment Agitation: None Treatment Engagement: No effort Observation Behaviorally, the patient demonstrated no signs of agitation, impulsivity or disinhibition. There was no remarkable evidence of a formal thought disorder or psychosis. LTG - Status: Deferred STG Status: Deferred Team Members: Neuropsychologist Diagnosis/Discharge Plan Impression 82 year old male s/p TBI 2T fall on 03/06/2018. Diagnosis: (1) Major neurocognitive disorder as late effect of traumatic brain injury without behavioral disturbance [facility] Level: I:No response-total assistance Maximizing acute care outcome It is recommended that the patient be monitored for emergent behavioral impulsivity as the medical condition evolves. This patients neuropathological challenges may limit his rehabilitation potential going forward, and these challenges will require specialized therapeutic skills to maximize outcome. Additionally, the patients family is experiencing ongoing issues of adjustment given the traumatic nature of the injury, and they may benefit from ongoing psychological assistance. At this point in the recovery process, the patient does not have cognitive capacity as the patient is unable to understand a situation and its likely consequences, nor is he able to manipulate information rationally. Cognitive capacity will be assessed throughout the recovery process. Discharge Planning Anticipated Problems Ongoing areas of concern will include behavioral impulsivity, lack of insight and judgment, which is expected to improve with time and treatment. Presently , the patient is critically ill. Treatment Plan This clinician will continue to follow with you throughout the course of this patients rehabilitation treatment, and I will be available to meet with the patients family/support system to facilitate their understanding and the ongoing care of their family member. The goals of neuropsychological intervention shall be both educational and supportive to the family/support system as is deemed clinically appropriate. Discharge Needs tbd Thank you Thank you for the opportunity to assist in this patients care. Norris Alfaro, Ph.D., ABPP Board Certified in Clinical Neuropsychology [place] [employer] [place] Licensed Psychologist #[id number] Norris Alfaro PhD March 09, 2018 12:32
--- NOTE | 2018-03-09 13:07 | HHI.CCPN ---
Subjective Brief History Elderly gentleman who was walking his dog fell under unknown circumstances on a flat surface sustained injuries to the head and right leg. It is unclear whether patient lost consciousness however he was very confused on the scene. Transferred to our institution as priority 1 trauma alert and on arrival due to level of consciousness patient was intubated and ventilated. Patient was resuscitated according to trauma principles and full workup was completed Injuries diagnosed on initial workup Intracranial subarachnoid and subdural bilateral hemorrhage with some intraventricular hemorrhage and frontal contusions Facial bruising / laceration and bilateral maxillary sinus fractures Right femoral neck fracture Right talus fracture Patient was placed in the ICU and appropriate services were consulted It should be noted that patient has prior history of falls very recently twice at which time he might have had some tremors rising suspicion about small vessel disease and possible TIAs versus strokes Patient was on multiple medications but currently not removed due to their physiological effects in current condition 24 Hour Review/Hospital Course 03/07/2018 Neurologically unchanged Patient on small dose propofol and fentanyl Remains sedated and intubated ventilated CTA of the brain pending Ultrasound of the carotids reveals about 50% bilateral stenosis and this does not appear to be hemodynamically significant or related to the patient's frequent falls Hemodynamically patient is stable Abdomen is soft nontender no rebound no guarding no masses Right femoral neck fracture and right talus fracture will need to be addressed by orthopedics and patient is going for surgery tomorrow At this point is stable to have the surgery done 03/08/2018 No change in neurologic status Remains on neuroprotective measures including propofol and fentanyl fairly small dose Assist-control ventilation Good bilateral breath sounds Patient is cleared for orthopedic surgery Discussed with the family 03/09 multi trauma elderly patients GCS 6 T on SAT propofol/fentanyl mechanical ventilation tube feeds abdomen -soft S/p ortho in the or POD#1 Keppra/neuro protection CT 2 days ago shows worsening of SDH Objective Vital Signs Date Time Temp Pulse Resp B/P (MAP) Pulse Ox O2 Delivery O2 Flow Rate FiO2 03/09/18 12:00 99.9 94 18 130/52 (78) 96 130/60 (83) 03/09/18 12:00 30 03/09/18 07:00 Mechanical Ventilator 03/06/18 20:18 4.00 Intake and Output 03/09/18 03/09/18 03/10/18 08:00 16:00 00:00 Intake Total 1000 ml 1705 ml Output Total 475 ml Balance 525 ml 1705 ml Result Diagram: 03/09/18 0420 03/09/18 0420 Other Results Laboratory Tests Test 03/09/18 04:35 Blood Gas Puncture Site ART LINE Blood Gas Patient Temperature 98.6 Blood Gas HCO3 15 mmol/L (22-26) Blood Gas Base Excess -10.4 mmol/L (-2-2) Blood Gas Oxygen Saturation 91 % (90-100) Arterial Blood pH 7.32 (7.380-7.420) Arterial Blood Partial Pressure CO2 29 mmHg (38-42) Arterial Blood Partial Pressure O2 71 mmHg (61-120) Arterial Blood Oxygen Content 13.9 Vol % (12.0-20.0) Arterial Blood Carboxyhemoglobin 2.1 % (0-4) Arterial Blood Methemoglobin 1.1 % (0-2) Blood Gas Hemoglobin 10.9 G/DL (12.0-16.0) Oxygen Delivery Device VENT Blood Gas Ventilator Setting SEE COMMENTS Blood Gas Inspired Oxygen 30 % Imaging Last 24 hours Impressions Chest X-Ray 03/09/18 0600 Signed Impressions: CONCLUSION: No appreciable change. Exam TRANSFUSION NURSE GCS 6 T Hemodynamic/Cardiac stable Pulmonary/Respiratory clear B/L Abdomen/GI Nutrition soft Urinary Catheter Assessment Urinary Catheter: Yes Vascular Central Line Catheter Vascular Central Line Catheter: Yes Assessment and Plan Plan continue neuro protection continue keppra hold lovenox until CT head stable will be a difficult wean guarded prognosis TBI/multitrauma at this age group Arely Hayden MD March 09, 2018 13:07
[2018-03-09] MEDS: fentaNYL DRIP 250 ML IV PRN (21:00)
[2018-03-10] VITALS (11 sets, daily range): BP systolic 142–175; BP diastolic 52–77; PULSE 94–106; RESP 18–19; TEMP 99.9–100.8; O2SAT 94–100
[2018-03-10] MEDS: RESP: ALBUTEROL 2.5 MG/IPRATROPIUM 0.5 MG NEB (SCH) NEB ×2 (03:25→08:02)
--- NOTE | 2018-03-10 04:04 | RADRPT ---
EXAM DATE: 03/10/2018 3:57 AM EDT AGE/SEX: 82 years / Male INDICATIONS: Follow up trauma. Head bleed. CLINICAL DATA: This is the patient's subsequent encounter. Patient reports that signs and symptoms h ave been present for 4 - 6 days and indicates a pain score of Nonresponsive. MEDICAL/SURGICAL HISTORY: Non-responsive. Non-responsive. COMPARISON: C, CHEST SINGLE AP, 03/09/2018. . FINDINGS: Endotracheal tube in good position. NG enters stomach. Mild basilar airspace disease with trace pleur al fluid. CONCLUSION: Mild basilar airspace disease with trace pleural fluid. Endotracheal tube and nasogastric tube in goo d position. Electronically signed by: Logan Marquez MD 03/10/2018 4:02 AM EDT
[2018-03-10 04:57] LABS: AUTOMATED NEUTROPHIL # 6.7 TH/MM3 (1.8-7.7); BASOPHIL # 0.1 TH/MM3 (0-0.2); BASOPHIL % 0.7 % (0.0-2.0); EOSINOPHIL # 0.2 TH/MM3 (0-0.4); EOSINOPHIL % 2.5 % (0.0-4.0); HEMATOCRIT 35.6 % (39.0-51.0); HEMOGLOBIN 11.7 GM/DL (13.0-17.0); LYMPH % 7.6 % (9.0-44.0); LYMPHOCYTE # 0.6 TH/MM3 (1.0-4.8); MEAN CELL VOLUME 88.9 FL (80.0-100.0); MEAN CORPUSCULAR HEMOGLOBIN 29.3 PG (27.0-34.0); MEAN CORPUSCULAR HGB CONC 32.9 % (32.0-36.0); MEAN PLATELET VOLUME 9.3 FL (7.0-11.0); MONO % 7.3 % (0.0-8.0); MONOCYTE # 0.6 TH/MM3 (0-0.9); NEUT % 81.9 % (16.0-70.0); PLATELET COUNT 165 TH/MM3 (150-450); RED BLOOD COUNT 4.01 MIL/MM3 (4.50-5.90); RED CELL DISTRIBUTION WIDTH 13.8 % (11.6-17.2); WHITE BLOOD COUNT 8.2 TH/MM3 (4.0-11.0)
[2018-03-10 05:14] LABS: ALBUMIN 2.5 GM/DL (3.4-5.0); ALT (GPT) 21 U/L (12-78); AST (GOT) 27 U/L (15-37); BICARBONATE 15.9 MEQ/L (21.0-32.0); BLOOD UREA NITROGEN 20 MG/DL (7-18); CALCIUM 8.3 MG/DL (8.5-10.1); CHLORIDE 115 MEQ/L (98-107); CREATININE 0.83 MG/DL (0.60-1.30); GLOMERULAR FILTRATION RATE 89 ML/MIN (>89); GLUCOSE,RANDOM 119 MG/DL (74-106); SODIUM (NA) 145 MEQ/L (136-145)
[2018-03-10] MEDS: CHLORHEXIDINE GLUCONATE 2 % 1 PACK (2 CLOTHS) TOP SCH (05:15)
[2018-03-10] MEDS: PROPOFOL 1000 MG/100 ML INJ 100 ML IV PRN (05:15)
[2018-03-10 05:16] LABS: ALKALINE PHOSPHATASE 67 U/L (45-117); TOTAL BILIRUBIN ADULT 0.7 MG/DL (0.2-1.0); TOTAL PROTEIN 5.4 GM/DL (6.4-8.2)
[2018-03-10] MEDS ORDERED: ceFAZolin INJ 1,000 MG VIAL ONE (06:20)
[2018-03-10] MEDS ORDERED: GENTAMICIN SULFATE 80 MG/2 ML VIAL ONE (06:21)
[2018-03-10] MEDS ORDERED: VANCOMYCIN HCL 1000 MG VIAL ONE (06:21)
[2018-03-10] MEDS ORDERED: SODIUM CHLOR 0.9% 250 ML INJ 0 ML ONE (06:22)
[2018-03-10] MEDS ORDERED: MIDAZOLAM HCL 2 MG/2 ML VIAL ONE (06:22)
[2018-03-10] MEDS ORDERED: ACETAMINOPHEN 1000 MG/100 ML 0 ML IV ONE (06:22)
[2018-03-10] MEDS ORDERED: FAMOTIDINE 20 MG/2 ML VIAL ONE (06:22)
--- NOTE | 2018-03-10 07:02 | PD.ORT.PN ---
Subjective Subjective Remarks Cirilo is an 82-year-old male with a displaced right femoral neck fracture. He has been intubated and sedated in the intensive care unit. He has been mostly unresponsive. Objective Vitals Vital Signs Date Time Temp Pulse Resp B/P (MAP) Pulse Ox O2 Delivery O2 Flow Rate FiO2 03/10/18 06:00 94 03/10/18 04:30 94 30 03/10/18 04:00 101 03/10/18 04:00 30 03/10/18 04:00 99.9 101 18 152/52 (85) 100 150/72 (98) 03/10/18 02:00 106 03/10/18 00:00 101 03/10/18 00:00 100.0 101 18 175/66 (102) 97 151/77 (101) 03/10/18 00:00 30 03/09/18 22:10 96 30 03/09/18 22:00 99 03/09/18 20:10 95 30 03/09/18 20:00 103 03/09/18 20:00 100.0 103 18 145/59 (87) 98 157/72 (100) 03/09/18 20:00 30 03/09/18 19:00 98 Mechanical Ventilator 30 03/09/18 18:00 91 03/09/18 16:38 100 30 03/09/18 16:00 99.9 103 19 171/63 (99) 94 159/60 (93) 03/09/18 16:00 30 03/09/18 16:00 103 03/09/18 14:00 93 03/09/18 12:00 99.9 94 18 130/52 (78) 96 130/60 (83) 03/09/18 12:00 94 03/09/18 12:00 30 03/09/18 11:17 96 30 03/09/18 10:00 95 03/09/18 08:14 96 30 03/09/18 08:00 84 03/09/18 08:00 30 03/09/18 08:00 99.3 84 18 126/108 (114) 96 130/73 (92) 03/09/18 07:00 96 Mechanical Ventilator 30 I/O 03/09/18 03/09/18 03/09/18 03/10/18 03/10/18 03/10/18 07:00 15:00 23:00 07:00 15:00 23:00 Intake Total 1000 ml 1705 ml 1649 ml 448 ml Output Total 475 ml 1000 ml 1225 ml Balance 525 ml 1705 ml 649 ml -777 ml Intake IV Total 1000 ml 1705 ml 1455 ml 100 ml Tube Feeding 134 ml 288 ml Other 60 ml 60 ml Output Urine Total 475 ml 1000 ml 1225 ml # Bowel Movements 0 0 Result Diagram: 03/10/180 03/10/18 044 Imaging Last 24 hours Impressions Chest X-Ray 03/08/18 06 Signed Impressions: CONCLUSION: Slight worsening pulmonary edema. Head CTA 03/07/18799 Signed Impressions: CONCLUSION: 1. Intracranial circulation appears widely patent. No large or central vessel occlusion identified. Head CT 03/07/18799 Signed Impressions: CONCLUSION: 1. There is increasing subarachnoid hemorrhage bilaterally. 2. There is mild increase in hemorrhage in the basilar cisterns and subarachno id hemorrhage along the left tentorium. Objective Remarks RLE: Right leg is shortened and external rotated. There is some crepitus with hip motion. Thigh and calf compartments are soft. Skin is intact. Motor and sensory exams are not possible secondary to sedation. Assessment & Plan Assessment and Plan 1) Right Femoral Neck Fx --I called patient's Mine this morning to discuss treatment of right hip fracture. At this point she is not interested in pursuing surgery. Given patient's overall medical condition, she is leaning towards palliative care and comfort care only. I explained to her that if patient's condition changes significantly and he has improvement, he may benefit from surgery in the future for right hip hemiarthroplasty. All of her questions were answered. 2) Right Capsular Avulsion of talus -nonop treatment Rui Beatty MD Mar 10, 2018 07:02
[2018-03-10] MEDS ORDERED: SODIUM CHLORIDE 0.9% IV SCH (07:30)
[2018-03-10] MEDS ORDERED: TRANEXAMIC ACID IV SCH (07:30)
--- NOTE | 2018-03-10 08:28 | HHI.PR ---
Neuropsych Emotional Emotional: UnabletoAssess: Emotional, Anxious/Fearful, Depressed/Sad, Hostile/ Resentful, Irritable/Angry/Frustrate, Labile, Constricted/Blunted Behavior Behavior: Intact: Impulsive/Agitated, Unable to Asses: Behavior, Coping/ Acceptance, Cooperative w/ Treatment, Motivation, Frustration Tolerance/[place], Suicidal/Homicidal Risk Cognitive Cognitive: Unable to Asses: Cognitive, Attention/Concentration, Confused/ Orientation, Insight/Awareness, Judgement/Problem-Solving, Memory Psychosocial Psychosocial: Intact: Psychosocial, Family/Other Adjustment, Realistic Expectation, Unable to Asses: Self-Esteem/Confidence Progress Notes/Response to Tx Contents of Sessions: Adjustment, Level of Consciousness Time with Patient: 30 minutes Premorbid psychological status Premorbid Cognitive, Emotional and Behavioral Status: Stable. The patient has high school years of education and a solid work history prior to this injury, retired for some time. The patient has no prior psychiatric difficulties, as described above. Substance abuse history is unremarkable. Behavioral Reactions of Patient and Family/Support System: Stable. The patient s family is experiencing ongoing issues of adjustment given the nature of the injury, and this aspect of recovery will require ongoing monitoring. Emotional/Behavioral Status of Patient and Family/Support System: Stable. Pertinent issues, if appropriate to this patients clinical care, are described in detail above. Maximizing acute care outcome It is recommended that the patient be monitored for emergent behavioral impulsivity as the medical condition evolves. This patients neuropathological challenges may limit his rehabilitation potential going forward, and these challenges will require specialized therapeutic skills to maximize outcome. Additionally, the patients family is experiencing ongoing issues of adjustment given the traumatic nature of the injury, and they may benefit from ongoing psychological assistance. At this point in the recovery process, the patient does not have cognitive capacity as the patient is unable to understand a situation and its likely consequences, nor is he able to manipulate information rationally. Cognitive capacity will be assessed throughout the recovery process. Anticipated Problems Ongoing areas of concern will include behavioral impulsivity, lack of insight and judgment, which is expected to improve with time and treatment. Presently , the patient is critically ill. Treatment Plan This clinician will continue to follow with you throughout the course of this patients critical care treatment, and I will be available to meet with the patients family/support system to facilitate their understanding and the ongoing care of their family member. The goals of neuropsychological intervention shall be both educational and supportive to the family/support system as is deemed clinically appropriate. [facility] Level: I:No response-total assistance Impression 82 year old male s/p TBI 2T fall on 03/06/2018. Diagnosis: (1) Major neurocognitive disorder as late effect of traumatic brain injury without behavioral disturbance Progress Note Narrative PTD 4. The patient has no neurobehavioral change, and remains sedated and intubated. Given his age and comorbidities, his chances for a meaningful neurobehavioral recovery are quite poor. He is [place]. I will follow. Norris Alfaro PhD Mar 10, 2018 8:28 am
[2018-03-10] MEDS: CHLORHEXIDINE 0.12% (ORAL KIT) 15 ML CUP MT SCH (08:30)
[2018-03-10] MEDS: SODIUM CHLOR 0.9% 1000 ML INJ 1,000 ML IV SCH (08:30)
[2018-03-10] MEDS ORDERED: MAGNESIUM CITRATE SOLN 300 ML BTL PO ONE (09:45)
[2018-03-10] MEDS: DOCUSATE SODIUM 50 MG/SENNA 8.6 MG TAB PO SCH (09:56)
[2018-03-10] MEDS: PANTOPRAZOLE SODIUM 40 MG VIAL IVP SCH (09:56)
[2018-03-10] MEDS: levETIRAcetam INJ 500 MG in SODIUM CHLORIDE 0.9% INJ 100 ML IV SCH (09:57)
[2018-03-10] MEDS: BACITRACIN TOP OINT 15 GM TUBE TOP SCH (09:57)
--- NOTE | 2018-03-10 10:23 | HHI.HCPN ---
Reason for visit a. To assist with evaluation and management of symptoms including: pain; dyspnea; encephalopathy b. To assist medical decision maker(s) with: better understanding of current medical conditions; weighing benefits/burdens of medical treatment options; making medical treatment decisions. . Subjective/Interval History Sedated, intubated, mechanically ventilated at time of my visit. No significant change overnight. During sedation vacation this AM , bedside nurse reports he was able to withdraw to noxious stimuli in upper and lower extremities. He did not open eyes to voice and was unable to follow any commands. Patient had been scheduled to undergo surgical repair of his hip fracture this AM. Orthopedist spoke with spouse this AM and procedure has been postponed pending further discussion of overall goals of care at this point. Nursing pain scores 0-3 since 03/09. Continues on fentanyl and propofol drips when not undergoing "sedation vacation." Tmax 100.0 Urine output has improved. Pulse/ BPs stable. Continues to oxygenate adequately on 30% FI02. There are brownish secretions now being suctioned from ET tube. CXR today show mild airspace disease. WBC/Hg/Plt stable. Renal function stable. Dr. Alfaro has indicated that "his chances for meaningful neurobehavioral recovery are quite poor." I have spoke with Dr. Handy who agrees. . Family/friend interactions Met with patient's spouse (Mine Kirk) and Mine's friend -- Kristofer Tiwari-- for about 50 minutes this AM in the consult room. Discussed additional history , current medical status, prognosis, spouse's understanding of patient's goals/ preferences, options of treatment going forward. Additional medical history Per spouse, patient has had a significant and progressive decline in functional status since his hospitalization for COPD/pneumonia at [facility] in November of this year. He would get out to walk the dog once a day, but otherwise would stay in the home or car. He slept much of the day. He slept only in his recliner, not in the bed. He had fallen the week before at [facility] -- the cause of that fall was unclear. The patient had lost about 15 lbs since November. The patient "was in denial" -- he refused to use 02 even though it was recommended by his physician. The patient also had dysphagia -- he would frequently choke with eating, not be able to swallow, and would then regurgitate what he had just eaten. He had had this evaluated once before and refused to have it evaluated again. He was withdrawing from activities. He had frequent productive cough. He was having early cognitive / memory problems. He had new onset tremor. He had diminishing strength in his legs and was having increasing difficulty using his right arm. ROS In addition to above, spouse reported: * Recurrent sores both legs * Pedal edema * Recurrent constipation * Arthritis type pain in multiple joints. Past Medical History -- * COPD diagnosed in 2011. Last hospitalization in Nov 2017 * CHF diagnosed in 2012 Surgeries -- is only aware of the following... * Cataract surgery * Right knee arthroscopy Fam Hx Spouse does not have much information regarding the patient's family medical history. She believes both parents when quite elderly. He had one sibling -- a sister -- who of some type of cancer. 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 Quit in 2011 when first diagnosed with COPd * No hx of EtOH abuse * No hx of illicits * No known prescription drug abuse Psychosocial history Originally from [place]. 9th grade education. Spent 9 years in the [employer] -- no combat. 3 times . x 2. to current -- Mine Kirk --- since 1992 Had one son -- on unknown cause. Patient had one sibling -- a sister -- who of an unknown type of cancer. Pt was active in [employer]. Enjoyed [employer] and [employer]. Hindu/Spirituality Patient comes from a [employer] tradition. Hindu/spirituality did not play an important role in his life of late. does request that a political advisor visit to anoint the sick. Health Care Goals and Preferences In addition to completing his living will, reported that they had many conversations regarding preferences for advanced illness. He had indicated he would never want to be kept alive on machines. He would never want to live in a nursing facility. In addition, he was already non-compliant with recommended treatments and she was absolutely certain based on experience and conversations that he would not participate with rehab. . Advance Directives Living Will: Copy in medical record Health Care Surrogate: Copy in medical record Durable Power of Trucking Contractor: Never completed Advance Directive Specifics Date completed: Living will and health care surrogate completed on 12/30/2011 . Health Care Surrogate(s): Patient has designated Mine Kirk (spouse) as his health care surrogate . Documented care wishes: Living will has standard language and indicates patient would NOT want life prolonging measures should he be found to have a terminal condition. He would NOT want artificial nutrition/hydration if he were terminal. . Significant change in goals: Health care surrogate has decided that the patient's goals/preferences would best be honored by foregoing further aggressive care, transitioning to comfort measures, and compassionately withdrawing life support. . Objective Vital Signs Date Time Temp Pulse Resp B/P (MAP) Pulse Ox O2 Delivery O2 Flow Rate FiO2 03/10/18 07:55 96 30 03/10/18 07:00 97 Mechanical Ventilator 30 03/10/18 06:00 94 03/10/18 04:30 94 30 03/10/18 04:00 101 03/10/18 04:00 30 03/10/18 04:00 99.9 101 18 152/52 (85) 100 150/72 (98) 03/10/18 02:00 106 03/10/18 00:00 101 03/10/18 00:00 100.0 101 18 175/66 (102) 97 151/77 (101) 03/10/18 00:00 30 03/09/18 22:10 96 30 03/09/18 22:00 99 03/09/18 20:10 95 30 03/09/18 20:00 103 03/09/18 20:00 100.0 103 18 145/59 (87) 98 157/72 (100) 03/09/18 20:00 30 03/09/18 19:00 98 Mechanical Ventilator 30 03/09/18 18:00 91 03/09/18 16:38 100 30 03/09/18 16:00 99.9 103 19 171/63 (99) 94 159/60 (93) 03/09/18 16:00 30 03/09/18 16:00 103 03/09/18 14:00 93 03/09/18 12:00 99.9 94 18 130/52 (78) 96 130/60 (83) 03/09/18 12:00 94 03/09/18 12:00 30 03/09/18 11:17 96 30 Intake & Output 03/10/18 03/10/18 06:59 18:59 Intake Total 1903 ml 1000 ml Output Total 1225 ml Balance 678 ml 1000 ml Intake IV Total 1555 ml 1000 ml Tube Feeding 288 ml Other 60 ml Output Urine Total 1225 ml # Bowel Movements 0 . Physical Exam CONSTITUTIONAL/GENERAL: This is an adequately nourished patient, intubated, mechanically ventilated, sedated, in an SICU bed. No distress noted. TUBES/LINES/DRAINS: orotracheal tube; orogastric tube; right lower extremity splint; SCD on LLE; wrist restraints; timmons catheter; right radial arterial line ; peripheral IVs; cervical collar SKIN: No jaundice, rashes. Repaired laceration right forehead. Ecchymosis/ swelling right eyelid. Psoriatic type erythema / plaque on extremities. Venous stasis changes LLE. Skin temperature appropriate. Not diaphoretic. HEAD: Repaired laceration right forehead. Ecchymosis/swelling right eyelid. EYES: Pupils constricted, equal and round not reactive.. Unable to assess EOMs. No scleral icterus. No injection or drainage. Fundi not examined. ENT: Unable to assess hearing -- does not react to voice. Nose without bleeding or purulent drainage. Throat without visible erythema, exudates, masses , or lesions. NECK: Cervical collar in place. Trachea midline. CARDIOVASCULAR: Irregular rhythm without murmurs, gallops, or rubs. Unable to assess JVD with cervical collar in place. RESPIRATORY/CHEST: Symmetric, unlabored respirations. Breath sounds equal bilaterally but diminished bilaterally. No wheezes or crackles heard. GASTROINTESTINAL: Abdomen soft, non-tender, nondistended. No hepato-splenomegaly , or palpable masses. No guarding. Bowel sounds present. GENITOURINARY: Without palpable bladder distension. Timmons catheter in place. MUSCULOSKELETAL: RLE in splint. Extremities otherwise without clubbing, cyanosis, or edema. No mottling. LYMPHATICS: Not examined. NEUROLOGICAL: Sedated. Unable to follow commands. No spontaneous movements noted at time of my exam. PSYCHIATRIC: Unable to assess due to level of responsiveness. . Diagnostic Tests Laboratory Laboratory Tests Test 03/08/18 04:09 03/08/18 04:45 03/09/18 04:20 03/09/18 04:35 Blood Gas Puncture Site SHERIF ART LINE Blood Gas Patient Temperature 98.6 98.6 Blood Gas HCO3 16 mmol/L (22-26) 15 mmol/L (22-26) Blood Gas Base Excess -9.0 mmol/L (-2-2) -10.4 mmol/L (-2-2) Blood Gas Oxygen Saturation 91 % (90-100) 91 % (90-100) Arterial Blood pH 7.30 (7.380-7.420) 7.32 (7.380-7.420) Arterial Blood Partial Pressure CO2 34 mmHg (38-42) 29 mmHg (38-42) Arterial Blood Partial Pressure O2 72 mmHg (61-120) 71 mmHg (61-120) Arterial Blood Oxygen Content 14.5 Vol % (12.0-20.0) 13.9 Vol % (12.0-20.0) Arterial Blood Carboxyhemoglobin 2.0 % (0-4) 2.1 % (0-4) Arterial Blood Methemoglobin 0.9 % (0-2) 1.1 % (0-2) Blood Gas Hemoglobin 11.3 G/DL (12.0-16.0) 10.9 G/DL (12.0-16.0) Oxygen Delivery Device VENTILATOR VENT Blood Gas Ventilator Setting AC/18/550/PEEP 5 SEE COMMENTS Blood Gas Inspired Oxygen 30 % 30 % White Blood Count 9.9 TH/MM3 (4.0-11.0) 8.4 TH/MM3 (4.0-11.0) Red Blood Count 3.97 MIL/MM3 (4.50-5.90) 3.81 MIL/MM3 (4.50-5.90) Hemoglobin 11.7 GM/DL (13.0-17.0) 11.2 GM/DL (13.0-17.0) Hematocrit 35.3 % (39.0-51.0) 34.0 % (39.0-51.0) Mean Corpuscular Volume 88.9 FL (80.0-100.0) 89.4 FL (80.0-100.0) Mean Corpuscular Hemoglobin 29.4 PG (27.0-34.0) 29.5 PG (27.0-34.0) Mean Corpuscular Hemoglobin Concent 33.1 % (32.0-36.0) 33.0 % (32.0-36.0) Red Cell Distribution Width 14.0 % (11.6-17.2) 13.7 % (11.6-17.2) Platelet Count 173 TH/MM3 (150-450) 149 TH/MM3 (150-450) Mean Platelet Volume 8.9 FL (7.0-11.0) 9.2 FL (7.0-11.0) Neutrophils (%) (Auto) 78.4 % (16.0-70.0) 73.2 % (16.0-70.0) Lymphocytes (%) (Auto) 10.2 % (9.0-44.0) 13.3 % (9.0-44.0) Monocytes (%) (Auto) 7.4 % (0.0-8.0) 8.9 % (0.0-8.0) Eosinophils (%) (Auto) 2.9 % (0.0-4.0) 3.9 % (0.0-4.0) Basophils (%) (Auto) 1.1 % (0.0-2.0) 0.7 % (0.0-2.0) Neutrophils # (Auto) 7.8 TH/MM3 (1.8-7.7) 6.1 TH/MM3 (1.8-7.7) Lymphocytes # (Auto) 1.0 TH/MM3 (1.0-4.8) 1.1 TH/MM3 (1.0-4.8) Monocytes # (Auto) 0.7 TH/MM3 (0-0.9) 0.7 TH/MM3 (0-0.9) Eosinophils # (Auto) 0.3 TH/MM3 (0-0.4) 0.3 TH/MM3 (0-0.4) Basophils # (Auto) 0.1 TH/MM3 (0-0.2) 0.1 TH/MM3 (0-0.2) CBC Comment DIFF FINAL DIFF FINAL Differential Comment Blood Urea Nitrogen 20 MG/DL (7-18) 24 MG/DL (7-18) Creatinine 1.06 MG/DL (0.60-1.30) 1.00 MG/DL (0.60-1.30) Random Glucose 64 MG/DL (74-106) 75 MG/DL (74-106) Total Protein 5.3 GM/DL (6.4-8.2) 5.5 GM/DL (6.4-8.2) Albumin 2.6 GM/DL (3.4-5.0) 2.7 GM/DL (3.4-5.0) Calcium Level 7.8 MG/DL (8.5-10.1) 8.2 MG/DL (8.5-10.1) Alkaline Phosphatase 76 U/L (45-117) 71 U/L (45-117) Aspartate Amino Transf (AST/SGOT) 42 U/L (15-37) 40 U/L (15-37) Alanine Aminotransferase (ALT/SGPT) 21 U/L (12-78) 22 U/L (12-78) Total Bilirubin 1.1 MG/DL (0.2-1.0) 0.9 MG/DL (0.2-1.0) Sodium Level 144 MEQ/L (136-145) 144 MEQ/L (136-145) Potassium Level 3.9 MEQ/L (3.5-5.1) 4.1 MEQ/L (3.5-5.1) Chloride Level 114 MEQ/L (98-107) 116 MEQ/L (98-107) Carbon Dioxide Level 18.3 MEQ/L (21.0-32.0) 15.8 MEQ/L (21.0-32.0) Anion Gap 12 MEQ/L (5-15) 12 MEQ/L (5-15) Estimat Glomerular Filtration Rate 67 ML/MIN (>89) 72 ML/MIN (>89) Test 03/10/18 04:40 03/10/18 04:46 White Blood Count 8.2 TH/MM3 (4.0-11.0) Red Blood Count 4.01 MIL/MM3 (4.50-5.90) Hemoglobin 11.7 GM/DL (13.0-17.0) Hematocrit 35.6 % (39.0-51.0) Mean Corpuscular Volume 88.9 FL (80.0-100.0) Mean Corpuscular Hemoglobin 29.3 PG (27.0-34.0) Mean Corpuscular Hemoglobin Concent 32.9 % (32.0-36.0) Red Cell Distribution Width 13.8 % (11.6-17.2) Platelet Count 165 TH/MM3 (150-450) Mean Platelet Volume 9.3 FL (7.0-11.0) Neutrophils (%) (Auto) 81.9 % (16.0-70.0) Lymphocytes (%) (Auto) 7.6 % (9.0-44.0) Monocytes (%) (Auto) 7.3 % (0.0-8.0) Eosinophils (%) (Auto) 2.5 % (0.0-4.0) Basophils (%) (Auto) 0.7 % (0.0-2.0) Neutrophils # (Auto) 6.7 TH/MM3 (1.8-7.7) Lymphocytes # (Auto) 0.6 TH/MM3 (1.0-4.8) Monocytes # (Auto) 0.6 TH/MM3 (0-0.9) Eosinophils # (Auto) 0.2 TH/MM3 (0-0.4) Basophils # (Auto) 0.1 TH/MM3 (0-0.2) CBC Comment DIFF FINAL Differential Comment Blood Urea Nitrogen 20 MG/DL (7-18) Creatinine 0.83 MG/DL (0.60-1.30) Random Glucose 119 MG/DL (74-106) Total Protein 5.4 GM/DL (6.4-8.2) Albumin 2.5 GM/DL (3.4-5.0) Calcium Level 8.3 MG/DL (8.5-10.1) Alkaline Phosphatase 67 U/L (45-117) Aspartate Amino Transf (AST/SGOT) 27 U/L (15-37) Alanine Aminotransferase (ALT/SGPT) 21 U/L (12-78) Total Bilirubin 0.7 MG/DL (0.2-1.0) Sodium Level 145 MEQ/L (136-145) Potassium Level 3.9 MEQ/L (3.5-5.1) Chloride Level 115 MEQ/L (98-107) Carbon Dioxide Level 15.9 MEQ/L (21.0-32.0) Anion Gap 14 MEQ/L (5-15) Estimat Glomerular Filtration Rate 89 ML/MIN (>89) Blood Gas Puncture Site ART LINE Blood Gas Patient Temperature 98.6 Blood Gas HCO3 15 mmol/L (22-26) Blood Gas Base Excess -9.1 mmol/L (-2-2) Blood Gas Oxygen Saturation 92 % (90-100) Arterial Blood pH 7.35 (7.380-7.420) Arterial Blood Partial Pressure CO2 29 mmHg (38-42) Arterial Blood Partial Pressure O2 75 mmHg (61-120) Arterial Blood Oxygen Content 14.7 Vol % (12.0-20.0) Arterial Blood Carboxyhemoglobin 2.0 % (0-4) Arterial Blood Methemoglobin 1.1 % (0-2) Blood Gas Hemoglobin 11.3 G/DL (12.0-16.0) Oxygen Delivery Device VENT Blood Gas Ventilator Setting SEE COMMENTS Blood Gas Inspired Oxygen 30 % . Result Diagram: 03/10/1843903/10/18439 Imaging Last Impressions Chest X-Ray 03/10/18599 Signed Impressions: CONCLUSION: Mild basilar airspace disease with trace pleural fluid. Endotracheal tube and n asogastric tube in good position. Cervical Spine MRI 03/08/18 Signed Impressions: CONCLUSION: 1. Spinal stenosis as above worse from C5 to C7. 2. There is no increased signal in the cord 3. Controlled flexion-extension films may be of benefit to evaluate C4-C5 list hesis. Head CTA 03/07/18799 Signed Impressions: CONCLUSION: 1. Intracranial circulation appears widely patent. No large or central vessel occlusion identified. Head CT 03/07/18799 Signed Impressions: CONCLUSION: 1. There is increasing subarachnoid hemorrhage bilaterally. 2. There is mild increase in hemorrhage in the basilar cisterns and subarachno id hemorrhage along the left tentorium. Neck CTA 03/07/18 Signed Impressions: CONCLUSION: 1. Left carotid: Atherosclerotic plaquing at the bifurcation with both hard an d soft plaque present. This results in stenosis in the origin of the left inter nal carotid estimated to be in the range of 30%. Of note, there is a small ulce ration beneath an area of soft plaque in the origin of the left internal caroti d. 2. Right carotid: Minimal plaquing. No hemodynamically significant stenosis id entified. 3. Incidental note made of mucoperiosteal thickening and air-fluid levels with in the maxillary sinuses. Carotid Artery Ultrasound 03/07/18 Signed Impressions: CONCLUSION: 1. Right Internal Carotid Artery: Findings indicate <50% stenosis. 2. Left Internal Carotid Artery: Findings indicate <50% stenosis. Primary Parameters Additional Parameters Stenosis % ICA PSV (cm/sc) Plaque Estimate % ICA/C CA PSV ratio ICA/CCA EDV (cm/sec) Normal <125 None <2.0 <40 <50% <125 <50% <2.0 <40 50-69% 125-230 >50% 2.0-4.0 40-100 >70% >230 >50% >4.[address] 03/06/181857 Signed Impressions: CONCLUSION: 1. Negative for acute traumatic injury within the thorax. Moderate to severe e mphysema with dependent atelectasis in the lungs. No pneumothorax or effusions. Abdomen/Pelvis CT 03/06/181857 Signed Impressions: CONCLUSION: 1. Right femoral neck fracture is slightly angulated and comminuted. 2. Negative for acute traumatic injury within the abdomen and pelvis. Hepatic and right renal cyst. Pelvis X-Ray 03/06/181845 Signed Impressions: CONCLUSION: Right femoral neck fracture with angular deformity. Maxillofacial CT 03/06/181845 Signed Impressions: CONCLUSION: 1. Bilateral relatively nondisplaced maxillary sinus fractures with fluid and hemorrhage in the maxillary sinuses and a small amount of air outside the left maxillary sinus laterally. Cervical Spine CT 03/06/181845 Signed Impressions: CONCLUSION: 1. Widening of the anterior disc interspace at C3-4 with minimal anterolisthes is. It is unclear if this is an acute or chronic finding. This would be better evaluated with MRI of cervical spine when patient is able. Ankle X-Ray 03/06/181845 Signed Impressions: CONCLUSION: Questionable avulsion fracture anterior to the talus. . Procedures * Intubation/mechanical ventilation * Right radial arterial line placement . Assessment and Plan Disease Oriented Problem List: (1) Traumatic brain injury (2) Intracranial bleed (3) Spinal stenosis in cervical region (4) Maxillary sinus fracture (5) Closed right hip fracture (6) COPD (chronic obstructive pulmonary disease) (7) Hypertension (8) BPH (benign prostatic hyperplasia) (9) CHF (congestive heart failure) Symptom Scale: (1) Pain 0-10 Scale: Unable to quantify Comment: Patient had arthritic type pains prior to his fall. Possible causes of current discomfort would include his multiple traumatic injuries; prolonged bedbound status; intubations; vascular access catheters; urinary catheter; restraints. . (2) Dyspnea 0-10 Scale: Unable to quantify Comment: Patient with underlying COPD. Would use metered-dose inhaler at home. Refused to use 02 at home even though it was recommended by his physician. Secretions from ET tube now henderson suggesting development of pneumonia. . . (3) Encephalopathy 0-10 Scale: Unable to quantify Comment: Current encephalopathy primarily due to the traumatic brain injury and resultant intracranial bleed. Not yet awakening during sedation vacations. Pre-trauma cognitive status presumed to be good. . Pertinent Non-Medical Issues Psychosocial: Patient is . No children or other surviving family. Spiritual: Raised [employer], but muslim/spirituality has played an important role in his life as an adult. has requested a political advisor to visit, however. Legal: Patient is completed a living will and healthcare surrogate designation. Paperwork is on the paper chart. Ethical issues impacting care: Patient is incapacitated currently to make his own healthcare decisions. There is no reasonable probability that he will recover capacity to do so. . Important Contacts * Mine Kirk (spouse; health care surrogate) H [phone] C . Prognosis Additional history provided by the spouse paints a picture of a declining trajectory of health even prior to the falls. The patient's underlying lung disease , recent weight loss, and memory issues indicate suggest a very complicated and prolonged ICU stay. Drs. Alfaro and Sebastián have indicated the chances of meaningful neurobehavioral recovery are small. The patient has been poorly compliant, would not want to be in a retirement and would not participate in rehab and would refuse 02 therapy making recovery even less likely should the patient survive the intitial hosptialization. The patient has also been quite clear regarding his wishes/preferences for this type of circumstance. Given the above, in my clinical opinion, the patient has a terminal condition. . . Code Status: No Code Plan == Code Status: NO CODE per conversation with the health care surrogate on 10/27 == Health care decision making: Patient is currently incapacitated to make his own healthcare decisions. There is no reasonable probability that he will recover capacity. He has designated his spouse--Mine Reagan--as his healthcare surrogate. ==Goals of medical treatment : patient has a living will which indicates he would not want life prolonging measures should he be found to have a terminal condition. feels strongly based on his living will, his values, what he has stated in prior conversations, that he would not want ongoing aggressive care at this point. He would want to forego further aggressive care and to withdraw life support. == Symptoms: * Pain:Had some pre-exisiting arthritic pains. Possible causes of current discomfort would include his multiple traumatic injuries; prolonged bedbound status; intubations; vascular access catheters; urinary catheter; restraints. Patient is currently on both propofol and fentanyl. This appears adequate. No further recommendations at this time . * Dyspnea: Patient with underlying COPD. Would use metered-dose inhaler at home. Has new onset of dark brown respiratory secretions suggesting development of pneumonia. Any sense of air hunger is currently managed by the propofol and fentanyl. No further recommendations at this time. * Encephalopathy: Current encephalopathy primarily due to the traumatic brain injury and resultant intracranial bleed. Not awakening during sedation vacations. Had been having some increasing cognitive issues even pre-fall per spouse. The increasing subarachnoid hemorrhage bilaterally on the CT imaging of 03/07/18 is a poor prognostic sign. PLAN * If agreed to by attending physician, will go forward with compassionate withdrawal of life support today. * and friend provided with anticipatory guidance regarding withdrawal. All questions answered. * Golf Course Assistant contacted per request of spouse. * Hospice services offered and accepted. Should patient survive off vent support and be stable for transport, she would like him to go to the [facility] [place]. Case discussed with hospice nurse. * Arranged for Veterans "pinning" * Plans discussed with bedside nurse. * Orders for withdrawal and post-withdrawal comfort orders written. . . . Time Spent Total Floor Time (mins): 90 (total floor time included chart review; patient exam; above referenced conference with health care surrogate; collaboration with bedside nurse and hospice nurse; writing orders for compassionate withdrawal of life support; and documenation. ) Face to Face Time (mins): 20 >50% Counseling/Coord of Care: Yes Attestation To help prompt me to consider important information that might be impacting today's encounter and assessment, information from prior notes written by myself or my colleagues may have been "brought forward" into today's note. My signature on this note, however, is an attestation that I personally performed the exam, history, and/or decision-making noted today, and, unless otherwise indicated, the interactions with patient, family, and staff as well as the review of records all occurred today. I also attest that the listed assessment and stated plan reflect my best clinical judgment today based on the combination of historical information, prior notes, and today's exam/ interactions. When time spent is documented, it refers only to time spent today by the signer, or if indicated, combined time spent today by collaborating physician/nurse practitioner. . José Luis Gerard MD Mar 10, 2018 10:23
--- NOTE | 2018-03-10 11:21 | HHI.CCPN ---
Subjective Brief History Elderly gentleman who was walking his dog fell under unknown circumstances on a flat surface sustained injuries to the head and right leg. It is unclear whether patient lost consciousness however he was very confused on the scene. Transferred to our institution as priority 1 trauma alert and on arrival due to level of consciousness patient was intubated and ventilated. Patient was resuscitated according to trauma principles and full workup was completed Injuries diagnosed on initial workup Intracranial subarachnoid and subdural bilateral hemorrhage with some intraventricular hemorrhage and frontal contusions Facial bruising / laceration and bilateral maxillary sinus fractures Right femoral neck fracture Right talus fracture Patient was placed in the ICU and appropriate services were consulted It should be noted that patient has prior history of falls very recently twice at which time he might have had some tremors rising suspicion about small vessel disease and possible TIAs versus strokes Patient was on multiple medications but currently not removed due to their physiological effects in current condition 24 Hour Review/Hospital Course 03/07/2018 Neurologically unchanged Patient on small dose propofol and fentanyl Remains sedated and intubated ventilated CTA of the brain pending Ultrasound of the carotids reveals about 50% bilateral stenosis and this does not appear to be hemodynamically significant or related to the patient's frequent falls Hemodynamically patient is stable Abdomen is soft nontender no rebound no guarding no masses Right femoral neck fracture and right talus fracture will need to be addressed by orthopedics and patient is going for surgery tomorrow At this point is stable to have the surgery done 03/08/2018 No change in neurologic status Remains on neuroprotective measures including propofol and fentanyl fairly small dose Assist-control ventilation Good bilateral breath sounds Patient is cleared for orthopedic surgery Discussed with the family 03/09 multi trauma elderly patients GCS 6 T on SAT propofol/fentanyl mechanical ventilation tube feeds abdomen -soft S/p ortho in the or POD#1 Keppra/neuro protection CT 2 days ago shows worsening of SDH 03/10/2018 Surgery cancelled because family is considering hospice/palliative care, await input Objective Vital Signs Date Time Temp Pulse Resp B/P (MAP) Pulse Ox O2 Delivery O2 Flow Rate FiO2 03/10/18 10:00 98 03/10/18 08:00 100.0 19 142/54 (83) 96 143/73 (96) 03/10/18 08:00 30 03/10/18 07:00 Mechanical Ventilator 03/06/18 20:18 4.00 Intake and Output 6/10/2703/10/18 03/11/18 08:00 16:00 00:00 Intake Total 448 ml 1000 ml Output Total 1225 ml Balance -777 ml 1000 ml Result Diagram: 03/10/18 0440 03/10/18 0440 Other Results Laboratory Tests Test 03/10/18 04:46 Blood Gas Puncture Site ART LINE Blood Gas Patient Temperature 98.6 Blood Gas HCO3 15 mmol/L (22-26) Blood Gas Base Excess -9.1 mmol/L (-2-2) Blood Gas Oxygen Saturation 92 % (90-100) Arterial Blood pH 7.35 (7.380-7.420) Arterial Blood Partial Pressure CO2 29 mmHg (38-42) Arterial Blood Partial Pressure O2 75 mmHg (61-120) Arterial Blood Oxygen Content 14.7 Vol % (12.0-20.0) Arterial Blood Carboxyhemoglobin 2.0 % (0-4) Arterial Blood Methemoglobin 1.1 % (0-2) Blood Gas Hemoglobin 11.3 G/DL (12.0-16.0) Oxygen Delivery Device VENT Blood Gas Ventilator Setting SEE COMMENTS Blood Gas Inspired Oxygen 30 % Imaging Last 24 hours Impressions Chest X-Ray 03/10/18 0600 Signed Impressions: CONCLUSION: Mild basilar airspace disease with trace pleural fluid. Endotracheal tube and n asogastric tube in good position. 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
[2018-03-10] MEDS ORDERED: LORazepam 2 MG/ML VIAL IV PUSH ONE ×2 (13:00→14:00)
[2018-03-10] MEDS ORDERED: MORPHINE SULFATE 8 MG/ML INJ IV PUSH PRN (13:15)
[2018-03-10] MEDS ORDERED: ACETAMINOPHEN 650 MG SUPP RECTAL PRN (13:15)
[2018-03-10] MEDS ORDERED: LORazepam 2 MG/ML VIAL IV PUSH PRN ×3 (13:15)
[2018-03-10] MEDS ORDERED: FUROSEMIDE 20 MG/2 ML VIAL IV PUSH PRN (13:15)
[2018-03-10] MEDS ORDERED: MORPHINE SULFATE 4 MG/ML INJ IV PUSH PRN (13:15)
[2018-03-10] MEDS ORDERED: BISACODYL 10 MG SUPP RECTAL PRN (13:15)
[2018-03-10] MEDS ORDERED: MORPHINE SULFATE 4 MG/ML INJ IV PUSH ONE (14:00)
[2018-03-10] MEDS ORDERED: MORPHINE SULFATE 8 MG/ML INJ IV PUSH ONE (14:00)
[2018-03-10] MEDS ORDERED: fentaNYL DRIP 250 ML IV PRN (14:00)
--- NOTE | 2018-03-10 14:00 | HHI.NSPN ---
History Chief Complaint: Intubated and sedated with extensive traumatic SAH. Interval History gentleman who appears to be in his 80s brought in as a trauma alert to [facility] after a fall while walking his dog with questionable loss of consciousness. Patient was confused but responding on arrival although lethargic. He was intubated and further trauma workup included CT scan of the head which reveals traumatic subarachnoid hemorrhage overlying the convexities as well as frontoparietal interhemispheric small subdural hemorrhage and subarachnoid hemorrhage in the ambient cisterns bilaterally. There is also small left intraventricular hemorrhage but no hydrocephalus. There is generalized cerebral atrophy and no mass-effect or midline shift. CT of cervical spine shows widening of the C3-4 interspace with the advanced C4-5 degenerative disc disease and possible autofusion along with extensive degenerative changes. He also has a right femoral fracture. Currently is intubated and sedated and no family member is at the bedside or any previous medical history known. 03/07/18: Pt intubated and sedated on Diprivan. Not opening eyes. Not following commands. Currently fighting vent. 03/08/18: Pt intubated and sedated on Diprivan and Fentanyl drips. He gets agitated when sedation held. He is not following commands. Pupils 2mm NR bilaterally. 03/09/18: Pt intubated and sedated on Diprivan and Fentanyl drips. Diprivan was held for exam. He is not opening eyes. Pupils 2mm bilaterally NR bilaterally. Not following commands. He is intubated. 03/10/18: Intubated and sedated. Does not open his eyes and withdraws to pain in the upper and lower extremities. Palliative care involving the patient discussing with who is elected on nonsurgical management of his injuries and contemplating hospice with comfort measures only. Review of Systems General: Positive for: fever, Negative for: chills, insomnia Respiratory: Positive for: sputum, Negative for: shortness of breath, cough Cardiovascular: Negative for: chest pain, palpitations, orthopnea Gastrointestinal: Negative for: nausea, vomitting, diarrhea, constipation Genitourinary: Negative for: urinary burning, urinary frequency, urinary urgency Exam Results Vital Signs Date Time Temp Pulse Resp B/P (MAP) Pulse Ox O2 Delivery O2 Flow Rate FiO2 03/10/18 12:02 100 30 03/10/18 12:00 99 03/10/18 12:00 100.8 18 154/55 (88) 143/70 (94) 03/10/18 07:00 Mechanical Ventilator 03/06/18 20:18 4.00 Intake and Output 03/10/18 03/10/18 03/11/18 08:00 16:00 00:00 Intake Total 448 ml 1000 ml Output Total 1225 ml Balance -777 ml 1000 ml Physical Examination General: Pt sedated and intubated on Diprivan and Fentanyl drips. Eyes: Pupils equal 2mm bilaterally and reactive bilaterally. Sclera anicteric. Resp: CTA bilaterally. Intubated. Volume control. Rate 18. Peep 5. FiO2 30 %. Heart: NSR no murmurs Abd: Soft positive bs Skin: No cyanosis or erythema. Right LE splinted and bandaged. SCD to LLE. Muscle: Moves all 4 extremities spontaneously but not following commands for muscle testing. Cervical collar intact. Withdraws UEs to pain. Neuro: Pt sedated on Diprivan and Fentanyl drips. Not opening eyes or following commands. Pupils 2mm bilaterally NR bilaterally. Lab, Micro, Other Results Laboratory Tests Test 03/10/18 04:40 03/10/18 04:46 White Blood Count 8.2 Red Blood Count 4.01 Hemoglobin 11.7 Hematocrit 35.6 Mean Corpuscular Volume 88.9 Mean Corpuscular Hemoglobin 29.3 Mean Corpuscular Hemoglobin Concent 32.9 Red Cell Distribution Width 13.8 Platelet Count 165 Mean Platelet Volume 9.3 Neutrophils (%) (Auto) 81.9 Lymphocytes (%) (Auto) 7.6 Monocytes (%) (Auto) 7.3 Eosinophils (%) (Auto) 2.5 Basophils (%) (Auto) 0.7 Neutrophils # (Auto) 6.7 Lymphocytes # (Auto) 0.6 Monocytes # (Auto) 0.6 Eosinophils # (Auto) 0.2 Basophils # (Auto) 0.1 CBC Comment DIFF FINAL Differential Comment Blood Urea Nitrogen 20 Creatinine 0.83 Random Glucose 119 Total Protein 5.4 Albumin 2.5 Calcium Level 8.3 Alkaline Phosphatase 67 Aspartate Amino Transf (AST/SGOT) 27 Alanine Aminotransferase (ALT/SGPT) 21 Total Bilirubin 0.7 Sodium Level 145 Potassium Level 3.9 Chloride Level 115 Carbon Dioxide Level 15.9 Anion Gap 14 Estimat Glomerular Filtration Rate 89 Blood Gas Puncture Site ART LINE Blood Gas Patient Temperature 98.6 Blood Gas HCO3 15 Blood Gas Base Excess -9.1 Blood Gas Oxygen Saturation 92 Arterial Blood pH 7.35 Arterial Blood Partial Pressure CO2 29 Arterial Blood Partial Pressure O2 75 Arterial Blood Oxygen Content 14.7 Arterial Blood Carboxyhemoglobin 2.0 Arterial Blood Methemoglobin 1.1 Blood Gas Hemoglobin 11.3 Oxygen Delivery Device VENT Blood Gas Ventilator Setting SEE COMMENTS Blood Gas Inspired Oxygen 30 Medical Decision Making Impression and Plan A: 82 y/o M with 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 He has C3-4 interspace widening with the possibility of ligamentous disruption/injury. P: Continue to monitor closely in the surgical intensive care unit. Keep HOB elevated at 30. Cervical collar for possible C3-4 ligamentous/soft tissue injury and cervical stenosis. Continue with seizure prophylaxis with Keppra, Continue with mechanical DVT prophylaxis and gastrointestinal stress ulcer prophylaxis. apparently is inclined towards withdrawal of supportive care and comfort measures only given his extensive injuries as well as advanced age with poor baseline condition and medical comorbidities. We will honor his expressed wishes and advanced directives. Mannie Lowery MD Mar 10, 2018 14:00
[2018-03-10] MEDS ORDERED: SOD PHOSPHATE/SOD BIPHOSPHATE (ADULT) ENEMA 133ML RECTAL ONE (15:00)
[2018-03-10] MEDS ORDERED: LORazepam 2 MG/ML VIAL IV PUSH SCH (18:00)
--- NOTE | 2018-03-13 08:13 | PD.NP.DS ---
Discharge Summary Reason for Referral: The patient is a 82 year old unknown handed male status post traumatic brain injury secondary to a fall on 03/06/2018. The patient was found down while walking his dog. There was questionable LOC but he was confused at the scene. Head CT showed SAH and facial fractures. He is referred for baseline neurobehavioral status examination per trauma protocol to assess cognitive, behavioral and emotional aspects of the injury and to provide treatment recommendations. The patient was followed until day 4 and discharged from further services. Past Medical History: Please refer to the patient's history and physical for information concerning the patient's past medical, surgical, and psychiatric histories. Education/Learning Hx: The patient completed high school years of education. There is no report of learning difficulties, grade repetitions or behavioral difficulties. The patient is retired. The patient is . The patient lives in [place], [place]. Premorbid Cognitive, Emotional and Behavioral Status: Stable. The patient has high school years of education and a solid work history prior to this injury, retired for some time. The patient has no prior psychiatric difficulties, as described above. Substance abuse history is unremarkable. Behavioral Reactions of Patient and Family/Support System: Stable. The patient s family is experiencing ongoing issues of adjustment given the nature of the injury, and this aspect of recovery will require ongoing monitoring. Emotional/Behavioral Status of Patient and Family/Support System: Stable. Pertinent issues, if appropriate to this patients clinical care, are described in detail above. Treatment Interventions: During the course of their acute care stay, this patient and their family/ support system were provided information concerning the neuropsychological aspects of the injury, education regarding course of recovery, and psychological support in the form of counseling with the person served and the family/support system as documented in the neuropsychology service progress notes, as deemed clinically appropriate. Current, Cognitive, Emotional and Behavioral Status: N/A. The patient's family has elected to move to comfort care. Impression at Discharge: The cognitive and behavioral status of this patient meets criteria for [place] Level I: No response - total assistance. Major Neurocognitive Disorder due to Traumatic Brain Injury, without behavioral disturbance CODE: F02.81 The above listed diagnoses are supported by the following clinical criteria: Major Neurocognitive Disorder: This person demonstrates a significant cognitive decline from a previous level of estimated baseline performance in one or more cognitive domains (complex attention, executive functioning, learning and memory, language, perceptual-motor, or social cognition) based on the patients /informants report, further documented by todays testing results , with these cognitive deficits interfering with the patients independence in everyday activities. Status of Family/Support System Adjustment: Stable. The patients family/ support system will experience ongoing issues of adjustment given the nature of the injury. Post Acute Recommendations: NA. Thank you for the opportunity to assist in this patients care. Norris Alfaro, Ph.D., ABPP Board Certified in Clinical Neuropsychology [place] [employer] [place] Licensed Psychologist #[id number] Norris Alfaro PhD Mar 13, 2018 08:13
--- NOTE | 2018-03-13 12:52 | HHI.DS ---
Summary Note Date of : Mar 10, 2018 Time Of : 1605 Admission Date March 06, 2018 at 19:26 Admitting Diagnosis Trauma, head bleed Diagnosis at Time of : (1) Traumatic brain injury ICD Code: S06.9X9A - Unspecified intracranial injury with loss of consciousness of unspecified duration, initial encounter (2) Closed right hip fracture ICD Code: S72.001A - Fracture of unspecified part of neck of right femur, initial encounter for closed fracture (3) Maxillary sinus fracture ICD Code: S02.401A - Maxillary fracture, unspecified side, initial encounter for closed fracture (4) Major neurocognitive disorder as late effect of traumatic brain injury without behavioral disturbance ICD Code: S06.9X9S - Unspecified intracranial injury with loss of consciousness of unspecified duration, sequela; F02.80 - Dementia in other diseases classified elsewhere without behavioral disturbance (5) COPD (chronic obstructive pulmonary disease) ICD Code: J44.9 - Chronic obstructive pulmonary disease, unspecified (6) Spinal stenosis in cervical region ICD Code: M48.02 - Spinal stenosis, cervical region Brief History S/P Fall CBC/BMP: 03/10/18 0440 03/10/18 0440 Imaging Last Impressions Chest X-Ray 03/10/18 0600 Signed Impressions: CONCLUSION: Mild basilar airspace disease with trace pleural fluid. Endotracheal tube and n asogastric tube in good position. Cervical Spine MRI 03/08/18 0000 Signed Impressions: CONCLUSION: 1. Spinal stenosis as above worse from C5 to C7. 2. There is no increased signal in the cord 3. Controlled flexion-extension films may be of benefit to evaluate C4-C5 list hesis. Head CTA 03/07/18 0800 Signed Impressions: CONCLUSION: 1. Intracranial circulation appears widely patent. No large or central vessel occlusion identified. Head CT 03/07/18 0800 Signed Impressions: CONCLUSION: 1. There is increasing subarachnoid hemorrhage bilaterally. 2. There is mild increase in hemorrhage in the basilar cisterns and subarachno id hemorrhage along the left tentorium. Neck CTA 03/07/18 0000 Signed Impressions: CONCLUSION: 1. Left carotid: Atherosclerotic plaquing at the bifurcation with both hard an d soft plaque present. This results in stenosis in the origin of the left inter nal carotid estimated to be in the range of 30%. Of note, there is a small ulce ration beneath an area of soft plaque in the origin of the left internal caroti d. 2. Right carotid: Minimal plaquing. No hemodynamically significant stenosis id entified. 3. Incidental note made of mucoperiosteal thickening and air-fluid levels with in the maxillary sinuses. Carotid Artery Ultrasound 03/07/18 0000 Signed Impressions: CONCLUSION: 1. Right Internal Carotid Artery: Findings indicate <50% stenosis. 2. Left Internal Carotid Artery: Findings indicate <50% stenosis. Primary Parameters Additional Parameters Stenosis % ICA PSV (cm/sc) Plaque Estimate % ICA/C CA PSV ratio ICA/CCA EDV (cm/sec) Normal <125 None <2.0 <40 <50% <125 <50% <2.0 <40 50-69% 125-230 >50% 2.0-4.0 40-100 >70% >230 >50% >4.[address] 03/06/181857 Signed Impressions: CONCLUSION: 1. Negative for acute traumatic injury within the thorax. Moderate to severe e mphysema with dependent atelectasis in the lungs. No pneumothorax or effusions. Abdomen/Pelvis CT 03/06/181857 Signed Impressions: CONCLUSION: 1. Right femoral neck fracture is slightly angulated and comminuted. 2. Negative for acute traumatic injury within the abdomen and pelvis. Hepatic and right renal cyst. Pelvis X-Ray 03/06/181845 Signed Impressions: CONCLUSION: Right femoral neck fracture with angular deformity. Maxillofacial CT 03/06/181845 Signed Impressions: CONCLUSION: 1. Bilateral relatively nondisplaced maxillary sinus fractures with fluid and hemorrhage in the maxillary sinuses and a small amount of air outside the left maxillary sinus laterally. Cervical Spine CT 03/06/181845 Signed Impressions: CONCLUSION: 1. Widening of the anterior disc interspace at C3-4 with minimal anterolisthes is. It is unclear if this is an acute or chronic finding. This would be better evaluated with MRI of cervical spine when patient is able. Ankle X-Ray 03/06/181845 Signed Impressions: CONCLUSION: Questionable avulsion fracture anterior to the talus. Hospital Course Brief History Elderly gentleman who was walking his dog fell under unknown circumstances on a flat surface sustained injuries to the head and right leg. It is unclear whether patient lost consciousness however he was very confused on the scene. Transferred to our institution as priority 1 trauma alert and on arrival due to level of consciousness patient was intubated and ventilated. Patient was resuscitated according to trauma principles and full workup was completed Injuries diagnosed on initial workup Intracranial subarachnoid and subdural bilateral hemorrhage with some intraventricular hemorrhage and frontal contusions Facial bruising / laceration and bilateral maxillary sinus fractures Right femoral neck fracture Right talus fracture Patient was placed in the ICU and appropriate services were consulted It should be noted that patient has prior history of falls very recently twice at which time he might have had some tremors rising suspicion about small vessel disease and possible TIAs versus strokes Patient was on multiple medications but currently not removed due to their physiological effects in current condition 24 Hour Review/Hospital Course 03/07/2018 Neurologically unchanged Patient on small dose propofol and fentanyl Remains sedated and intubated ventilated CTA of the brain pending Ultrasound of the carotids reveals about 50% bilateral stenosis and this does not appear to be hemodynamically significant or related to the patient's frequent falls Hemodynamically patient is stable Abdomen is soft nontender no rebound no guarding no masses Right femoral neck fracture and right talus fracture will need to be addressed by orthopedics and patient is going for surgery tomorrow At this point is stable to have the surgery done 03/08/2018 No change in neurologic status Remains on neuroprotective measures including propofol and fentanyl fairly small dose Assist-control ventilation Good bilateral breath sounds Patient is cleared for orthopedic surgery Discussed with the family 03/09 multi trauma elderly patients GCS 6 T on SAT propofol/fentanyl mechanical ventilation tube feeds abdomen -soft S/p ortho in the or POD#1 Keppra/neuro protection CT 2 days ago shows worsening of SDH 03/10/2018 Surgery cancelled because family is considering hospice/palliative care After consultation with palliative care team, patient's wishes to withdraw life-sustaining measures and keep patient comfortable Comfort measure medications given, patient withdrawn from the ventilator and at 1605 Cristino Rao Mar 13, 2018 12:52
== END 2018-03-10 20:44 | disposition expired | DRG 963 ==
LOC: NEPI 18:45 → EDBD 19:26 → NEDA 19:26 → N03B 20:01
PROVIDERS: ADMIT Family Medicine; ATTEND Family Medicine
PROC: 5A1945Z Respiratory Ventilation, 24-96 Consecutive Hours (ICD-10-PCS; principal; 2018-03-06)
PROC: 0BH17EZ Insertion of Endotracheal Airway into Trachea, Via Natural or Artificial Opening (ICD-10-PCS; 2018-03-06)
PROC: 0HQ1XZZ Repair Face Skin, External Approach (ICD-10-PCS; 2018-03-06)
DX: S06.6X9A Traumatic subarachnoid hemorrhage with loss of consciousness of unspecified duration, initial encounter (principal); S72.001A Fracture of unspecified part of neck of right femur, initial encounter for closed fracture; G93.40 Encephalopathy, unspecified; I11.0 Hypertensive heart disease with heart failure; J43.9 Emphysema, unspecified; I50.9 Heart failure, unspecified; N28.1 Cyst of kidney, acquired; R13.10 Dysphagia, unspecified; J98.11 Atelectasis; M48.02 Spinal stenosis, cervical region; S02.40CA Maxillary fracture, right side, initial encounter for closed fracture; S02.40DA Maxillary fracture, left side, initial encounter for closed fracture; S01.81XA Laceration without foreign body of other part of head, initial encounter; S60.511A Abrasion of right hand, initial encounter; M50.321 Other cervical disc degeneration at C4-C5 level; S92.101A Unspecified fracture of right talus, initial encounter for closed fracture; R40.2412 Glasgow coma scale score 13-15, at arrival to emergency department; E78.5 Hyperlipidemia, unspecified; K21.9 Gastro-esophageal reflux disease without esophagitis; N40.0 Benign prostatic hyperplasia without lower urinary tract symptoms; Z51.5 Encounter for palliative care; Z91.81 History of falling; Z87.01 Personal history of pneumonia (recurrent); Z87.891 Personal history of nicotine dependence; Z74.01 Bed confinement status; W18.30XA Fall on same level, unspecified, initial encounter; Y93.K1 Activity, walking an animal
CPT/HCPCS: 36600; 36620; 70450; 70486; 70496; 70498; 71045; 71260; 72125; 72141; 72170; 73600; 74177; 80048; 80053; 82805; 83735; 84100; 85025; 85610; 85730; 86850; 86900; 86901; 87641; 90715; 93005; 93880; 94002; 94003; 94640; 94664; C9113; J0131; J0690; J1580; J1940; J1953; J2060; J2250; J2270; J3010; J3370; J7030; J7040; J7050; L0150; L0172; P9045; Q9967